=== PATIENT | male | born 1935 | race Caucasian/White ===

== ENCOUNTER → 2017-01-22 | Outpatient (CLI) | payer OTHER ==
[~2017-01-22] MED LIST: /WARF25TA OR; ASPI325T OR; IBUP600T OR; MACR100C43 PO; PERC5TAB8 OR
--- NOTE | 2017-01-22 12:22 | REP ---
Right lower extremity deep vein duplex ultrasound: There is nonocclusive thrombus in the popliteal vein extending into the distal femoral vein. No other thrombus is identified. The study is performed with deep vein compression, color flow Doppler assessment and Doppler waveforms at multiple levels. Impression: There is nonocclusive thrombus in the popliteal vein propagating into the distal femoral vein. Signed by Yair Herrera MD 01/22/2017 12:14 P
--- NOTE | 2017-01-22 13:18 | REP ---
CT chest without contrast: History: Shortness of breath. Edema. Comparison chest CT study March 23, 2015. CT findings: There is no evidence of pleural or pericardial effusion. The heart is mildly prominent. There is advanced coronary artery vascular calcification. No hilar or mediastinal mass is seen. The aorta is tortuous but otherwise unremarkable. There is a stable 3 mm nodule in the right lower lobe on image 63 of 120 series 201 unchanged from 2015. There are other smaller noncalcified pulmonary nodules in the left lower lobe and right upper lobe unchanged. No new lung mass or significant pulmonary nodule is seen. There is no evidence of diffuse interstitial edema. No bony destructive lesion is seen. Impression: Mild cardiac enlargement. Aortic tortuosity and vascular calcification. No evidence of pulmonary edema. Stable tiny pulmonary nodules. No acute disease. Signed by Thom Paz MD 01/22/2017 04:23 P
== END ==
LOC: M RAD 11:04
PROVIDERS: ATTEND Internal Medicine Cardiovascular Disease
DX: R60.0 Localized edema (principal); R05 Cough

== ENCOUNTER 2017-04-09 22:00 | Emergency (ER) | payer MEDICARE, OTHER, SELFPAY ==
[~2017-04-09] VITALS: Ht 167.6 cm; Wt 81.8 kg
[~2017-04-09 22:00] MED LIST changes: -MACR100C43 PO
[2017-04-09 22:48] VITALS: BP 108/62
[2017-04-09 23:31] LABS: YEAST LIKE CELL URINE AUTO SMALL
[2017-04-10] MEDS ORDERED: NITROFURANTOIN (MACROBID) 100 MG CAP PO ONE
[2017-04-10] MEDS ORDERED: MACR100C43 PO (00:01)
== END 2017-04-10 00:09 | disposition home or self-care (01) ==
LOC: M ED 22:00
DX: N40.1 Benign prostatic hyperplasia with lower urinary tract symptoms (principal); N39.0 Urinary tract infection, site not specified; R31.9 Hematuria, unspecified; Z79.01 Long term (current) use of anticoagulants; Z87.891 Personal history of nicotine dependence

== ENCOUNTER 2017-08-16 09:03 | Day surgery (SDC) | payer MEDICARE ==
[2017-08-16] MEDS: NS 1,000 ML IV ×2 (09:15→09:20)
[2017-08-16] MEDS ORDERED: PHENYLephrine HCL 500 MCG/5 ML (100MCG/ML) SYRINGE (J2370) As Ordered (09:53)
[2017-08-16] MEDS ORDERED: PROPOFOL 200 MG/20 ML VIAL As Ordered (09:54)
== END 2017-08-16 10:47 | disposition home or self-care (01) ==
LOC: M OPP 09:03
DX: R93.3 Abnormal findings on diagnostic imaging of other parts of digestive tract (principal); D12.0 Benign neoplasm of cecum; D12.3 Benign neoplasm of transverse colon; I25.10 Atherosclerotic heart disease of native coronary artery without angina pectoris; I10 Essential (primary) hypertension; E78.5 Hyperlipidemia, unspecified; C85.90 Non-Hodgkin lymphoma, unspecified, unspecified site; Z92.21 Personal history of antineoplastic chemotherapy; M19.90 Unspecified osteoarthritis, unspecified site; I63.9 Cerebral infarction, unspecified; N40.1 Benign prostatic hyperplasia with lower urinary tract symptoms; H54.62 Unqualified visual loss, left eye, normal vision right eye; Z95.5 Presence of coronary angioplasty implant and graft; Z96.652 Presence of left artificial knee joint; Z87.891 Personal history of nicotine dependence; Z79.899 Other long term (current) drug therapy; Z79.01 Long term (current) use of anticoagulants; Z88.8 Allergy status to other drugs, medicaments and biological substances; Z88.5 Allergy status to narcotic agent; Z80.0 Family history of malignant neoplasm of digestive organs
CPT/HCPCS: 45385

== ENCOUNTER → 2021-04-27 | Outpatient (CLI) | payer MEDICARE ==
[~2021-04-27] MED LIST changes: -/WARF25TA OR; +ATOR80TA59; +COUM1TAB18 OR; +ELIQ5TAB; +FINA5TAB2; +FURO40TA2; +FURO80TA2 PO; +MACR100C43 PO; +POTA20TA6; +SPIR-10 PO
== END ==
LOC: M LABSMTC 09:29
PROVIDERS: ATTEND Anesthesiology
DX: Z01.812 Encounter for preprocedural laboratory examination (principal); Z20.822 Contact with and (suspected) exposure to COVID-19

== ENCOUNTER 2021-05-02 11:09 | Day surgery (SDC) | payer MEDICARE ==
[~2021-05-02] VITALS: Ht 170.2 cm; Wt 80.8 kg
[~2021-05-02 11:09] MED LIST changes: +CYCLOPENTOLATE 1% OPHTH SOLN 2 ML BTL OD SCH; +DUOVISC (0.50ML VISCOAT/0.85ML PROVISC) OPHTH KIT As Ordered ONE; +FLURBIPROFEN 0.03% OPHTH SOLN 2.5 ML OD SCH; +LIDOCAINE 1% SDV 5ML VIAL As Ordered ONE; +LR 1,000 ML IV SCH; +MIDAZOLAM INJ 2MG/2ML VIAL (J2250 PER 1MG) As Ordered ONE; +PHENYLEPHRINE 2.5% OPHTH SOL 2ML OD SCH; +TETRACAINE 0.5% OPHTH SOLN 4ML OD SCH; +fentaNYL 100 MCG/2 ML INJECTION (J3010) As Ordered ONE
--- OUTSIDE RECORDS SUMMARY | 2021-05-02 11:13 | CCD | Continuity of Care Document ---
Author Author Wesley DIXON Organization Unknown Address [address] [place] [id number] Phone [phone] Care Team Providers Care Outreach Analyst Name Role Phone Vic Marin D.O. AUTM [phone] Vitaliy Simmons M.D. AUTM [phone] Ben Castillo MD AUTM [phone] Problems Active Problems Provider Date Segun hematuria Jean-Paul Simental MD Onset: 12/15/2015 Benign prostatic hyperplasia with outflow obstruction Jean-Paul Simental MD Onset: 12/15/2015 Neoplasm of uncertain behavior of prostate Jean-Paul Simental MD Onset: 12/15/2015 Inguinal lymphadenopathy Onset: 02/09/20 17 Abdominal aortic aneurysm Onset: 017 Arthritis Onset: 01/22/2017 Chronic congestive heart failure Onset: 01/22/2017 Multiple nodules of lung Onset: 01/23/20 17 Acute deep venous thrombosis of politeal vein of right leg Onset: 01/22/2017 Sensorineural hearing loss Onset: 2016 Blind left eye Onset: 01/22/2017 History of cerebrovascular accident Onse t: 05/09/2015 Recurrent coronary arteriosclerosis afte r percutaneous transluminal coronary angioplasty Onset: 08/20/2014 Nonsustained ventricular tachycardia Ons et: 08/19/2014 Paroxysmal atrial fibrillation Onset: Heart valve disorder Onset: Pulmonary hypertension Onset: Hyperlipidemia Onset: Benign prostatic hyperplasia Onset: 01/07 Heart valve disorder Onset: 01/22/2017 Hyperlipidemia Onset: 01/22/2017 Paroxysmal atrial fibrillation Onset: Pulmonary hypertension Onset: 01/22/2017 Low back pain Onset: 11/28/2018 Chronic nonalcoholic liver disease Onset : 10/01/2018 Anticoagulant agent Onset: 10/01/2018 Congestive heart failure Onset: 08/09/19 19 Disorder of external ear Onset: 09/18/19 18 Requires vaccination Onset: 04/13/2017 Nausea and vomiting Onset: 03/16/2017 Embolism from thrombosis of vein of distal lower extremity Onset: 01/30/2017 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 Onset: 01/24/2017 Social History Type Date Description Comments Sex Unknown Tobacco Use Start: Unknown End: Unknown Former Cigarette Smo ker quit >40 years ago Smoking Status Reviewed: 01/25/21 Former Cigarette Smoker quit >40 years ago ETOH Use Consumes 2 beers per day Allergies, Adverse Reactions, Alerts Active Allergies Reaction Severity Comments Date Morphine And Related Nausea Only 015 Morphine Nausea, Sensitivity 07/16/19 20 Other Itching 07/07/2019 Dabigatran Etexilate Mesylate Other (See Comments) 07/07/2019 Inactive Allergies NKDA 12/15/2015 Medications Active Medications SIG Qnty Indications Ordering Provide r Date Finasteride 5mg Tablets 1 by mouth every day 90tabs Svitlana Dixon MD 021 Eliquis 5mg Tablets Take 1 tablet (5 mg total) by mouth 2 (two) times a day 60tabs Svitlana Cortez MD 10/04/2017 Tylenol 8 Hour 650mg Tablets ER prn 1tabs Unknown 05/08/2017 Atorvastatin Calcium 80mg Tablets 1/2 by mouth every day Unknown Furosemide 80mg Tablets Take 80 mg by mouth daily Unknown Spironolactone 25mg Tablets Unknown Breo Ellipta 200-25mcg/Inh Aerosol Vic Marin D.O. Immunizations Description No Information Available Vital Signs Date Vital Result Comment 01/25/2021 1:28pm Height 68 inches 5'8" Weight 180.00 lb Weight 81.648 kg BMI (Body Mass Index) 27.4 kg/m2 BP Systolic 108 mmHg BP Diastolic 72 mmHg Heart Rate 68 /min Post Void Residual ml 147 Bladder Scanner, I ndication: frequency 01/20/2020 1:56pm Height 68 inches 5'8" Weight 186.00 lb Weight 84.370 kg BMI (Body Mass Index) 28.3 kg/m2 BP Systolic 127 mmHg BP Diastolic 77 mmHg Heart Rate 74 /min Post Void Residual ml 12 Bladder Scanner, I ndication: retention Results Test Acquired Date Facility Test Result H/L Range Note 230 Ua Routine 01/25/2021 [facility] REF TO DR ADDRESS ON ORDER FOR (315)- - Ua Glucose Negative Ua Protein Negative Ua Nitrite Negative Ua Leuko Negative Ua Blood Negative Ua Color Not Entered Ua Ketones Negative Ua Clarity Not Entered Ua Specific [place] 1.015 1.003-1.030 Ua PH 6.5 5.0-7.5 Ua Bilirubin Negative Ua Urobilinogen 0.2 E.U./dL 0.0-1.0 Laboratory test finding 01/21/[address] [id number] [phone] Prostate Specific Antigen 43.07 NG/ML High 0.06- 4.00 1 1 Do not interpret PSA results as absolute evidence of the presence or absence of Malignant Disease. The obtained PSA value should be used in conjunction with information available from clinical evaluation and other diagnostic procedures. Following post-radical prostatectomy, the guidelines for biochemical recurrence of prostate cancer is a detectable or rising PSA value that is greater than or equal to 0.2 ng/ml with a second confirmatory level of greater than or equal to 0.2 ng/ml. The result for the PSA is determined using the [employer] System that utilizes a direct chemiluminometric technology. The result is not interchangeble with different assay methods. Procedures Date Code Description Status 01/25/2021 16855 Office/Outpatient Established Mo d MDM 30-39 Min Completed 01/25/2021 55727 Bladder Scan, Post Voiding Resid ual Urine Completed Medical Devices Description No Information Available Encounters Type Date Location Provider Dx Diagnosis Office Visit 01/25/2021 1:20p [facility] Svitlana Stover MD R97.20 Elevated prostate specific a ntigen [PSA] N40.1 Benign prostatic hyperplasia with lower urinary tract symp R33.9 Retention of urine, unspecif ied Z87.440 Personal history of urinary (tract) infections Assessments Date Code Description Provider 01/25/2021 R97.20 Elevated prostate specific antig en [PSA] Svitlana Dixon MD 01/25/2021 N40.1 Benign prostatic hyperplasia wit h lower urinary tract sympto Svitlana Dixon MD 01/25/2021 R33.9 Retention of urine, unspecified Svitlana Dixon MD 01/25/2021 Z87.440 Personal history of urinary (tra ct) infections Svitlana Stover MD Plan of Treatment Future Appointment(s):* 01/31/2022 10:20 am - Svitlana Dixon MD at [facility] Functional Status Description No Information Available Mental Status Description No Information Available Referrals Description No Information Available
--- OUTSIDE RECORDS SUMMARY | 2021-05-02 11:13 | CCD | Clinical Summary ---
Author Author [employer] Organization 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 tach, mitral insufficienc y, pulmonary hypertension, abdominal aortic aneurysm, coronary disease post PTCA stent, history of stroke, history of DVT, history of A. fib on anticoagulation. History of CHF currently compensated. 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 ~ ~History of chronic A. fib anticoagulated previously on beta-holly therapy discontinued due to slow vent ricular response. ~ ~With his CVA he is previously been on statin therapy high i ntensity back and September. Sounds like by the way of what the family can recall t hat his statin was stopped at his last cardiac visit ~ ~Labs back in December minima l anemia 12.1/35.6. GFR greater than 60. ~ ~Upcoming cataract surgery he is act memo around the house and does get outside a bit to. No problems with exertional chest discomfort chest pain or palpitations. No reports of feeling lightheaded or dizzy no falls or syncope. No bleeding issues. No peripheral edema no orth opnea or paroxysmal nocturnal dyspnea. ~ ~EKG abnormal but consistent with prior . ~ ~Assessment and plan as documented below cleared for this very low risk surg ical procedure chronic medical problems with acceptable control, visit for: - Th e Chief Complaint is: Patient arrives to room with use of wheelchair, here toda y for pre op clearance. Patient is scheduled for cataract surgery on right eye o n 05/02/21 Problems Includes: Problems addressed during this encounter and other active Problems Current Visit Onset Date - Time Resolved Date - Time Provider C ondition Status Atrial Fibrillation 06/13/2016 - 12:00AM Vic godinez DO Active Note: on anticogaulants per [facility] Coronary Artery Disease 09/07/2014 - 12:00AM Jesus lopez Active Note: 02/05/17 - [facility] - pt. presented w/ near-syncope and SOB. Admitted for urgent cardiac catheterization indicating a high grad ostial left anterior descending stenosis. Dilated and stented with bare-metal stent. Stress test was marketdly abnormal but the subsequent cath showed no significant stenosis. Hyperlipidemia 05/25/2014 - 12:00AM Vic huang DO Active Past Visits Onset Date - Time Resolved Date - Time Provider Co ndition Status Amyloidosis 10/18/2020 - 11:20AM Yeny Ochoa, RN Act memo Large Intestine Neoplasm, Benign - Tubular Adenoma 07/16/2018 - 12:00AM Jesus Nurse Active Chronic Obstructive Pulmonary Disease 06/14/2018 - 12:00AM Vic Marin DO Active Localized edema 02/05/2017 - 12:00AM Jesus Nurse Act memo Note: 02/05/17 - [facility] - R t. leg, D/C on Lovenox, will attempt to convert to [place] Coronary angioplasty status 02/05/2017 - 12:00AM Yue to Nurse Active Note: 02/05/17 - Percutaneous intervention 08/20/14. Requires minimum of 30 days of dual antiplatelet therapy. 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 managed by [facility]. Arthritis 05/25/2014 - 12:00AM Vic Marin DO Active Benign Prostatic Hypertrophy 05/25/2014 - 12:00AM Don Marin DO Active Aneurysm of Abdominal Aorta Infrarenal 05/22/2014 - 12:00AM Vic Marin DO Active Note: Per hospital report , 3.5 cm Stroke Syndrome 05/22/2014 - 12:00AM Vic jiménez DO Active Note: Per hospital reports 1 07/15/2013 , started on statin Renal Cyst 05/22/2014 - 12:00AM Vic Marin DO Active Note: per hospital report 1 07/15/2013 Tachycardia Supraventricular 05/22/2014 - 12:00AM Don Marin DO Active Note: Per hospital report , longest 13 seconds in duration Ventricular Tachycardia 05/22/2014 - 12:00AM Vic Marin DO Active Note: Per hospital reports 1 07/2013. Beta holly started. Plan of Treatment Future Appointments Date Time Location Provider [facility] 05/13/2021 11:00AM [facility] Vic leary DO Future Tests Order Diagnosis Results Due Ordering Provid er Records Ophthalmology Cortical age-related cataract, unspecifi ed eye 04/26/21 Vic Marin DO In House Procedures - EKG EKG with Interpretation & Report A thscl heart disease of [place] coronary artery w/o ang pctrs 04/26/21 Vic valerio DO Visit Summary - Standard Visit Visit Summary Standard Visi t Cortical age- related cataract, unspecified eye 04/26/21 Vic Marin DO In House Meds - Immunizations Please give immunizations toda y per Immun. tab Cortical age-related cataract, unspecified eye 04/26/21 Vic Marin DO - Instructions for patient - Return to the clinic if condition wors ens or new symptoms arise - Follow-up visit Assessments Includes: Assessments from this encounter - Cataract Cleared for this low risk surgical procedure. Chronic medical problems with acceptable control - Atrial fibrillation - Coronary artery disease - Hyperlipidemia See updated problem list for history/discussion/assessment and plan for today's problems. See also health tab and appropriate flow sheets. Instructions Includes: Instructions from this encounter Instructions to patient Instructions for patient Education and Decision Aids were provide d during visit for: Patient appeared to understand therapeut ic regimen Medical Equipment - Implanted Devices Includes: Current DevicesNo Medical Equipment Recorded Medications Includes: Medications discussed during this encounter and other current Medicati ons Discontinued / Stopped on this date on 01/15/2020 Atorvastatin Calcium 40 MG Oral Tablet P rovider: Diagnosis: Dutasteride 0.5 MG Oral Capsule Provider : Diagnosis: Current Medications (continue as prescribed) Finasteride 5 MG Oral Tablet 04/25/2021 Provider: Diagnosis: Furosemide 80 MG Oral Tablet 10/07/2020 Provider: Diagnosis: dose increasedcardio Eliquis 5 MG Oral Tablet 01/15/2020 Provider: Diagnosis: Cardio Spironolactone 25 MG Oral Tablet 12/25/2019 Provide r: Diagnosis: Medications Administered Includes: Administered Medications from this encounterNo Administered Medications Recorded Vital Signs Includes: Vital Signs from this encounter Vital Name 04/26/2021 06:01P Blood Pressure Sitting L 112/72 BP Cuff Size Regular Pulse Rate-Sitting (bpm) 89 Pulse Rhythm Regular Respiration Rate (breaths/min) 20 Temp-Tympanic (F) 97.7 Pain Level 0 Oxygen Saturation (%) 97 Flow Rate (l/min) (None (Room Air)) FiO2 (%) 21 Results Includes: Results discussed during this encounterNo Results Recorded For Specified Dates History of Present Illness Includes: History of Present Illness from this encounter Wesley Newby is an 85 year old male. - Allergy list reviewed - Problem list reviewed - Medication reconciliation performed - Medication list reviewed with patient and updated in EMR - - No request for consultation by special ist no previous emergency room visit Social History Description Last Updated Smoking status 04/26/2021 : Former smoker 04/26/2021 Educational level 01/15/2020 Not using drugs 07/17/2019 01/15/2020 Secondhand cigarette smoke exposure 01/15/2020 Procedures and Surgical History Includes: Procedures from this encounter Procedures Code Diagnosis Performing Provider Service Location Service Date continue current medication except where otherwise no laura Transition in care medication list update medical regimen review Clinical summary provided to patient Clinical summary provided to patient Summary provided electronically in CCDA format & reasonable certainty of receipt Surgical History Last Updated History of cardiovascular surgery Cardiac catheteriza tion 08/20/14, stented 01/15/2020 Medical History Includes: Medical History addressed during this encounter Description Last Updated Orthopedic surgery 2008- right femur co mpound fx repair- steel plate ~2009 right femur repair ~left knee replacement 200901/15/2020 Patient screening 12/08/2014 Offered for HIV REFUSED 0 12/08/2014 An ECG was performed 05/10/2014 05/22/[address] scan of the head was performed 05/10/2014 014 An echocardiogram was performed 05/11/2014 05/11/2014 05/22/2014 An abdominal ultrasound was performed 05/12/201405/22 An MRI of the head was performed 05/11/2014 05/22/2014 An MRI was performed 05/11/2014 05/22/2014 Family History Includes: Family History addressed during this encounter Description Last Updated Mother, Father, and brother- stroke 01/15/2020 Family history of cancer Paternal uncle- lung cancer 01/15/2020 Family history of depression Brother 01/15/2020 Family history of not using drugs 01/15/2020 Maternal history of not using drugs 01/15/2020 No maternal history of depression 01/15/2020 No paternal history of depression 01/15/2020 Paternal history of not using drugs 01/15/2020 Review of Systems Includes: Review of Systems from this encounterNo Review of Systems Recorded Mental Status Includes: Mental Status from this encounter Description Oriented to time, place, and person Functional Status Includes: Functional Status from this encounterNo Functional Status Recorded Physical Exam Includes: Physical Exam from this encounter Skin: -the skin color and pigmentation were normal -the skin general appearance was normal Eyes: -the conjunctiva exhibited no abnormalities -the extraocular movements were normal Ears, Nose, Throat: -no external nose deformities -no nasal discharge seen -the oropharynx was normal Neck: -the neck demonstrated no decrease in suppleness -the thyroid showed no abnormalities -no cervical mass was seen -No carotid bruits Lymph Nodes: -the supraclavicular lymph nodes were not enlarged -no adenopathy Lungs: -normal breath sounds/voice sounds -no wheezing was heard -no rhonchi were heard -no rales/crackles were heard Cardiovascular System: -no murmurs were heard -no pitting edema -heart rate and rhythm normal -no bradycardia present -no tachycardia present Abdomen: -abdominal non-tender Psychiatric Exam: -the affect was normal Head: -no evidence of a head injury -the head was normocephalic Neurological System: -oriented to time, place, and person General Status: -in no acute distress -well developed -well nourished Musculoskeletal System: -overall findings were normal Vital Signs: -current vital signs reviewed Immunizations Includes: Immunizations addressed during this encounter Vaccine Dose # Date Site Reaction(s) Status Source Influenza, high-dose (over 65) 3 04/26/2021 Activ e (Ordered) [facility] Allergies Includes: Active Allergies Substance Type Reaction Onset Date - Time Resolved Date - Ti me Status Pradaxa Allergy Heartburn 09/07/2014 - 12:00AM Acti ve Morphine/D5W Intolerance Nausea, Vomiting, Diarrhea, Head ache 09/07/2014 - 12:00AM Active Encounters Encounter Provider Location Date Check-In Time Check-Out Time D iagnosis Medical Clearance Vic Marin [facility] 04/26/2021 5 :37PM 11:59PM Cataract, Atrial Fibrillation, Coronary Artery Disease, Hyperlipidemia Insurance Includes: Active Insurance Policies Plan Name Member ID Group # Subscriber Relationship Effective Da paul 1 - s Medicare [id number] Wesley Casper Ronaldnelly Self 07/09/1999 - Unknown 2 - [facility] Care Options [id number] Wesley Cardenasnelly [place] 04/08/2017 - Unknown Advance Directives Includes: Current Advance Directives Directive Pat Aware Third Green Party Effective Date Reviewed Status Ebola Screening Performed Yes 08/20/2020 Current and Verified Note: Within the last month, have you traveled outside of the [place]? - NO packet given Pt Bill of Rights, Priv Prac, Ad Dir Yes 12/30/2020 Current and Verified Note: Pt declined AD packet COVID Screening Performed Yes 04/26/2021 Current and Verified Health Concerns Includes: Health Concerns for current assessments Hyperlipidemia Onset 05/25/2014 Goals Includes: Active Goals for current assessments Goal for Hyperlipidemia Added 05/25/2014 by Provider Health Concern: Hyperlipidemia Interventions Includes: Interventions for current assessments Cholesterol guidelines reviewed. Benefi josh statin therapy discussed. Please call if you are feeling significant muscle pain while taking your cholesterol medicine. We want to repeat blood work in about 2-3 months. Added 05/25/2014 Goal: Goal for Hyperlipidemia Evaluations & Outcomes Includes: Evaluations & Outcomes for current assessments Goal converted from Patient Problem data . Goal is currently In Progress. Added 05/25/2014 - In Progress Goal: Goal for Hyperlipidemia
--- OUTSIDE RECORDS SUMMARY | 2021-05-02 11:14 | CCD ---
Author Author [facility] Organization [facility] Address Unknown Phone Unavailable Care Team Providers Care Continuous Crusher Operator Name Role Phone Ben Castillo MD Unavailable Unavailable Ben Castillo MD Unavailable Unavailable Ben Castillo MD Unavailable Unavailable Ben Castillo MD Unavailable Unavailable Ben Castillo MD Unavailable Unavailable Ben Castillo MD Unavailable Unavailable Ben Castillo MD Unavailable Unavailable Ben Castillo MD Unavailable Unavailable Ben Castillo MD Unavailable Unavailable Ben Castillo MD Unavailable Unavailable Ben Castillo MD Unavailable Unavailable Ben Castillo MD Unavailable Unavailable Ben Castillo MD Unavailable Unavailable Ben Castillo MD Unavailable Unavailable Ben Castillo MD Unavailable Unavailable Ben Castillo MD Unavailable Unavailable Ben Castillo MD Unavailable Unavailable Ben Castillo MD Unavailable Unavailable Ben Castillo MD Unavailable Unavailable Ben Castillo MD Unavailable Unavailable Ben Castillo MD Unavailable Unavailable Ben Castillo MD Unavailable Unavailable Ben Castillo MD Unavailable Unavailable Ben Castillo MD Unavailable Unavailable Ben Castillo MD Unavailable Unavailable Ben Castillo MD Unavailable Unavailable Ben Castillo MD Unavailable Unavailable Ben Castillo MD Unavailable Unavailable Ben Castillo MD Unavailable Unavailable Ben Castillo MD Unavailable Unavailable Ben Castillo MD Unavailable Unavailable Ben Castillo MD Unavailable Unavailable Ben Castillo MD Unavailable Unavailable Ben Castillo MD Unavailable Unavailable Ben Castillo MD Unavailable Unavailable Ben Castillo MD Unavailable Unavailable Ben Castillo MD Unavailable Unavailable Ben Castillo MD Unavailable Unavailable Ben Castillo MD Unavailable Unavailable Ben Castillo MD Unavailable Unavailable Ben Castillo MD Unavailable Unavailable Ben Castillo MD Unavailable Unavailable Ben Castillo MD Unavailable Unavailable Ben Castillo MD Unavailable Unavailable Ben Castillo MD Unavailable Unavailable Ben Castillo MD Unavailable Unavailable Ben Castillo MD Unavailable Unavailable Ben Castillo MD Unavailable Unavailable Ben Castillo MD Unavailable Unavailable Ben Castillo MD Unavailable Unavailable Ben Castillo MD Unavailable Unavailable Ben Castillo MD Unavailable Unavailable Ben Castillo MD Unavailable Unavailable Ben Castillo MD Unavailable Unavailable Ben Castillo MD Unavailable Unavailable Ben Castillo MD Unavailable Unavailable Ben Castillo MD Unavailable Unavailable Ben Castillo MD Unavailable Unavailable Ben Castillo MD Unavailable Unavailable Ben Castillo MD Unavailable Unavailable Ben Castillo MD Unavailable Unavailable FULEIHAN, Selena BOLIVAR MD Unavailable Unavailable FULEIHAN, Selena BOLIVAR MD Unavailable Unavailable FULEIHAN, Selena BOLIVAR MD Unavailable Unavailable FULEIHAN, Selena BOLIVAR MD Unavailable Unavailable FULEIHAN, Selena BOLIVAR MD Unavailable Unavailable FULEIHAN, Selena BOLIVAR MD Unavailable Unavailable FULEIHAN, Selena BOLIVAR MD Unavailable Unavailable FULEIHAN, Selena BOLIVAR MD Unavailable Unavailable FULEIHAN, Selena BOLIVAR MD Unavailable Unavailable FULEIHAN, Selena BOLIVAR MD Unavailable Unavailable FULEIHAN, Selena BOLIVAR MD Unavailable Unavailable FULEIHAN, Selena BOLIVAR MD Unavailable Unavailable FULEIHAN, Selena BOLIVAR MD Unavailable Unavailable FULEIHAN, Selena BOLIVAR MD Unavailable Unavailable FULEIHAN, Selena BOLIVAR MD Unavailable Unavailable FULEIHAN, Selena BOLIVAR MD Unavailable Unavailable FULEIHAN, Selena BOLIVAR MD Unavailable Unavailable FULEIHAN, Selena BOLIVAR MD Unavailable Unavailable FULEIHAN, Selena BOLIVAR MD Unavailable Unavailable FULEIHAN, Selena BOLIVAR MD Unavailable Unavailable FULEIHAN, Selena BOLIVAR MD Unavailable Unavailable FULEIHAN, Selena BOLIVAR MD Unavailable Unavailable FULEIHAN, Selena BOLIVAR MD Unavailable Unavailable FULEIHAN, Selena BOLIVAR MD Unavailable Unavailable FULEIHAN, Selena BOLIVAR MD Unavailable Unavailable FULEIHAN, Selena BOLIVAR MD Unavailable Unavailable FULEIHAN, Selena BOLIVAR MD Unavailable Unavailable FULEIHAN, Selena BOLIVAR MD Unavailable Unavailable FULEIHAN, Selena BOLIVAR MD Unavailable Unavailable FULEIHAN, Selena BOLIVAR MD Unavailable Unavailable FULEIHAN, Selena BOLIVAR MD Unavailable Unavailable FULEIHAN, Selena BOLIVAR MD Unavailable Unavailable FULEIHAN, Selena BOLIVAR MD Unavailable Unavailable FULEIHAN, Selena BOLIVAR MD Unavailable Unavailable FULEIHAN, Selena BOLIVAR MD Unavailable Unavailable FULEIHAN, Selena BOLIVAR MD Unavailable Unavailable FULEIHAN, Selena BOLIVAR MD Unavailable Unavailable FULEIHAN, Selena BOLIVAR MD Unavailable Unavailable FULEIHAN, Selena BOLIVAR MD Unavailable Unavailable FULEIHAN, Selena BOLIVAR MD Unavailable Unavailable FULEIHAN, Selena BOLIVAR MD Unavailable Unavailable FULEIHAN, Selena BOLIVAR MD Unavailable Unavailable FULEIHAN, Selena BOLIVAR MD Unavailable Unavailable FULEIHAN, Selena BOLIVAR MD Unavailable Unavailable FULEIHAN, Selena BOLIVAR MD Unavailable Unavailable FULEIHAN, Selena BOLIVAR MD Unavailable Unavailable FULEIHAN, Selena BOLIVAR MD Unavailable Unavailable FULEIHAN, Selena BOLIVAR MD Unavailable Unavailable FULEIHAN, Selena BOLIVAR MD Unavailable Unavailable FULEIHAN, Selena BOLIVAR MD Unavailable Unavailable FULEIHAN, Selena BOLIVAR MD Unavailable Unavailable FULEIHAN, Selena BOLIVAR MD Unavailable Unavailable FULEIHAN, Selena BOLIVAR MD Unavailable Unavailable FULEIHAN, Selena BOLIVAR MD Unavailable Unavailable FULEIHAN, Selena BOLIVAR MD Unavailable Unavailable FULEIHAN, Selena BOLIVAR MD Unavailable Unavailable FULEIHAN, Selena BOLIVAR MD Unavailable Unavailable FULEIHAN, Selena BOLIVAR MD Unavailable Unavailable FULEIHAN, Selena BOLIVAR MD Unavailable Unavailable FULEIHAN, Selena BOLIVAR MD Unavailable Unavailable FULEIHAN, Selena BOLIVAR MD Unavailable Unavailable FULEIHAN, Selean BOLIVAR MD Unavailable Unavailable FULEIHAN, Selena BOLIVAR MD Unavailable Unavailable FULEIHAN, Selena BOLIVAR MD Unavailable Unavailable FULEIHAN, Selena BOLIVAR MD Unavailable Unavailable FULEIHAN, Selena BOLIVAR MD Unavailable Unavailable FULEIHAN, Selena BOLIVAR MD Unavailable Unavailable FULEIHAN, Selena BOLIVAR MD Unavailable Unavailable FULEIHAN, Selena BOLIVAR MD Unavailable Unavailable FULEIHAN, Selena BOLIVAR MD Unavailable Unavailable FULEIHAN, Selena BOLIVAR MD Unavailable Unavailable FULEIHAN, Selena BOLIVAR MD Unavailable Unavailable FULEIHAN, Selena BOLIVAR MD Unavailable Unavailable FULEIHAN, Selena BOLIVAR MD Unavailable Unavailable FULEIHAN, Selena BOLIVAR MD Unavailable Unavailable FULEIHAN, Selena BOLIVAR MD Unavailable Unavailable FULEIHAN, Selena BOLIVAR MD Unavailable Unavailable FULEIHAN, Selena BOLIVAR MD Unavailable Unavailable FULEIHAN, Selena BOLIVAR MD Unavailable Unavailable FULEIHAN, Selena BOILVAR MD Unavailable Unavailable FULEIHAN, Selena BOLIVAR MD Unavailable Unavailable FULEIHAN, Selena BOLIVAR MD Unavailable Unavailable FULEIHAN, Selena BOLIVAR MD Unavailable Unavailable KRISTEN, Selena BOLIVAR MD Unavailable Unavailable KRISTEN, Selena BOLIVAR MD Unavailable Unavailable KRISTEN, Selena BOLIVAR MD Unavailable Unavailable KRISTEN, Selena BOLIVAR MD Unavailable Unavailable KRISTEN, Selena BOLIVAR MD Unavailable Unavailable KRISTEN, Selena BOLIVAR MD Unavailable Unavailable BRY Salazar, Antoinette Unavailable CarguelloGermain Aster DO Unavailable Unavailable Carguello J Aster DO Unavailable Unavailable Carguello J Aster DO Unavailable Unavailable Carguello J Aster DO Unavailable Unavailable Carguello J Aster DO Unavailable Unavailable Carguello J Aster DO Unavailable Unavailable Carguello J Aster DO Unavailable Unavailable Carguello J Aster DO Unavailable Unavailable Carguello J Aster DO Unavailable Unavailable Carguello J Aster DO Unavailable Unavailable Carguello J Aster DO Unavailable Unavailable Carguello, J Aster DO Unavailable Unavailable Carguello J Aster DO Unavailable Unavailable Carguello J Aster DO Unavailable Unavailable Carguello J Aster DO Unavailable Unavailable Carguello J Aster DO Unavailable Unavailable Carguello J Aster DO Unavailable Unavailable Carguello J Aster DO Unavailable Unavailable Carguello J Aster DO Unavailable Unavailable Carguello J Aster DO Unavailable Unavailable Carguello J Aster DO Unavailable Unavailable Carguello J Aster DO Unavailable Unavailable Carguello J Aster DO Unavailable Unavailable Carguello J Aster DO Unavailable Unavailable Carguello, J Aster DO Unavailable Unavailable Carguello J Aster DO Unavailable Unavailable Carguello J Aster DO Unavailable Unavailable Carguello J Aster DO Unavailable Unavailable Carguello J Aster DO Unavailable Unavailable Carguello J Aster DO Unavailable Unavailable Carguello J Aster DO Unavailable Unavailable Carguello J Aster DO Unavailable Unavailable Carguello J Aster DO Unavailable Unavailable Carguello J Aster DO Unavailable Unavailable Carguello J Aster DO Unavailable Unavailable Carguello J Aster DO Unavailable Unavailable Carguello J Aster DO Unavailable Unavailable Carguello J Aster DO Unavailable Unavailable Carguello J Aster DO Unavailable Unavailable Carguello J Aster DO Unavailable Unavailable Carguello J Aster DO Unavailable Unavailable Carguello, J Aster DO Unavailable Unavailable Carguello J Aster DO Unavailable Unavailable Carguello, J Aster DO Unavailable Unavailable Carguello J Aster DO Unavailable Unavailable Carguello J Aster DO Unavailable Unavailable Carguello J Aster DO Unavailable Unavailable Carguello, J Aster DO Unavailable Unavailable Carguello, J Aster DO Unavailable Unavailable Carguello, J Aster DO Unavailable Unavailable Carguello, J Sater DO Unavailable Unavailable Carguello, J Aster DO Unavailable Unavailable Carguello, J Aster DO Unavailable Unavailable Carguello, J Aster DO Unavailable Unavailable Carguello, J Aster DO Unavailable Unavailable Carguello, J Aster DO Unavailable Unavailable Carguello, J Aster DO Unavailable Unavailable Carguello, J Aster DO Unavailable Unavailable Carguello, J Aster DO Unavailable Unavailable Carguello, J Aster DO Unavailable Unavailable Carguello, J Aster DO Unavailable Unavailable Carguello, J Aster DO Unavailable Unavailable Carguello, J Aster DO Unavailable Unavailable Carguello, J Aster DO Unavailable Unavailable Carguello, J Aster DO Unavailable Unavailable Carguello J Aster DO Unavailable Unavailable Carguello J Aster DO Unavailable Unavailable Carguello J Aster DO Unavailable Unavailable Carguello, J Aster DO Unavailable Unavailable Carguello, J Aster DO Unavailable Unavailable Carguello, J Aster DO Unavailable Unavailable Carguello, J Aster DO Unavailable Unavailable Carguello J Aster DO Unavailable Unavailable Carguello, J Aster DO Unavailable Unavailable Carguello, J Aster DO Unavailable Unavailable Carguello, J Aster DO Unavailable Unavailable Carguello J Aster DO Unavailable Unavailable Carguello J Aster DO Unavailable Unavailable Carguello J Aster DO Unavailable Unavailable Carguello J Aster DO Unavailable Unavailable Carguello, J Aster DO Unavailable Unavailable Carguello, J Aster DO Unavailable Unavailable Carguello J Aster DO Unavailable Unavailable Carguello J Aster DO Unavailable Unavailable Carguello J Aster DO Unavailable Unavailable Carguello J Aster DO Unavailable Unavailable Carguello, J Aster DO Unavailable Unavailable Carguello, J Aster DO Unavailable Unavailable Carguello J Aster DO Unavailable Unavailable Carguello J Aster DO Unavailable Unavailable Carguello J Aster DO Unavailable Unavailable Carguello, J Aster DO Unavailable Unavailable Carguello J Aster DO Unavailable Unavailable Carguello, J Aster DO Unavailable Unavailable Carguello J Aster DO Unavailable Unavailable Carguello J Aster DO Unavailable Unavailable Carguello J Aster DO Unavailable Unavailable Carguello, J Aster DO Unavailable Unavailable Carguello, J Aster DO Unavailable Unavailable Carguello, J Aster DO Unavailable Unavailable Carguello, J Aster DO Unavailable Unavailable Carguello, J Aster DO Unavailable Unavailable Carguello, J Aster DO Unavailable Unavailable Carguello, J Aster DO Unavailable Unavailable Carguello, J Aster DO Unavailable Unavailable Carguello, J Aster DO Unavailable Unavailable Carguello, J Aster DO Unavailable Unavailable Carguello, J Aster DO Unavailable Unavailable Carguello, J Aster DO Unavailable Unavailable Carguello, J Aster DO Unavailable Unavailable Carguello, J Aster DO Unavailable Unavailable Carguello, J Aster DO Unavailable Unavailable Carguello, J Aster DO Unavailable Unavailable Carguello, J Aster DO Unavailable Unavailable Carguello, J Aster DO Unavailable Unavailable Carguello J Aster DO Unavailable Unavailable Carguello J Aster DO Unavailable Unavailable Carguello J Aster DO Unavailable Unavailable Carguello, J Aster DO Unavailable Unavailable Carguello, J Aster DO Unavailable Unavailable Carguello, J Aster DO Unavailable Unavailable Carguello, J Aster DO Unavailable Unavailable Carguello J Aster DO Unavailable Unavailable Carguello, J Aster DO Unavailable Unavailable Carguello, J Aster DO Unavailable Unavailable Carguello, J Aster DO Unavailable Unavailable Carguello J Aster DO Unavailable Unavailable Carguello J Aster DO Unavailable Unavailable Carguello J Aster DO Unavailable Unavailable Carguello J Aster DO Unavailable Unavailable Carguello, J Aster DO Unavailable Unavailable Carguello, J Aster DO Unavailable Unavailable Carguello J Aster DO Unavailable Unavailable Carguello J Aster DO Unavailable Unavailable Carguello J Aster DO Unavailable Unavailable Carguello J Aster DO Unavailable Unavailable Carguello, J Aster DO Unavailable Unavailable Carguello, J Aster DO Unavailable Unavailable Carguello J Aster DO Unavailable Unavailable Carguello J Aster DO Unavailable Unavailable Carguello J Aster DO Unavailable Unavailable Carguello, J Aster DO Unavailable Unavailable Carguello, J Aster DO Unavailable Unavailable Carguello, J Aster DO Unavailable Unavailable Carguello, J Aster DO Unavailable Unavailable Carguello, J Aster DO Unavailable Unavailable Carguello, J Aster DO Unavailable Unavailable Carguello, J Aster DO Unavailable Unavailable Carguello, J Aster DO Unavailable Unavailable Carguello, J Aster DO Unavailable Unavailable Carguello, J Aster DO Unavailable Unavailable Carguello, J Aster DO Unavailable Unavailable Carguello, J Aster DO Unavailable Unavailable Carguello, J Aster DO Unavailable Unavailable Carguello, J Aster DO Unavailable Unavailable Carguello, J Aster DO Unavailable Unavailable Carguello, J Aster DO Unavailable Unavailable Carguello, J Aster DO Unavailable Unavailable Carguello, J Aster DO Unavailable Unavailable Carguello, J Aster DO Unavailable Unavailable Carguello, J Aster DO Unavailable Unavailable Carguello, J Aster DO Unavailable Unavailable Carguello, J Aster DO Unavailable Unavailable Carguello, J Aster DO Unavailable Unavailable Carguello, J Aster DO Unavailable Unavailable Carguello, J Aster DO Unavailable Unavailable Carguello, J Aster DO Unavailable Unavailable Carguello, J Aster DO Unavailable Unavailable Carguello, J Aster DO Unavailable Unavailable Carguello, J Aster DO Unavailable Unavailable Carguello, J Aster DO Unavailable Unavailable Carguello, J Aster DO Unavailable Unavailable Carguello, J Aster DO Unavailable Unavailable Carguello, J Aster DO Unavailable Unavailable Carguello, J Aster DO Unavailable Unavailable Carguello, J Aster DO Unavailable Unavailable Selena PETERSON MD Unavailable Unavailable Selena PETERSON MD Unavailable Unavailable FULTRI, Selena BOLIVAR MD Unavailable Unavailable Selena PETERSON MD Unavailable Unavailable Selena PETERSON MD Unavailable Unavailable Selena PETERSON MD Unavailable Unavailable Selena PETERSON MD Unavailable Unavailable FULTRI, Selena BOLIVAR MD Unavailable Unavailable Selena PETERSON MD Unavailable Unavailable KRISTEN, Selena BOLIVAR MD Unavailable Unavailable Selena PETERSON MD Unavailable Unavailable Selena PETERSON MD Unavailable Unavailable Selena PETERSON MD Unavailable Unavailable Selena PETERSON MD Unavailable Unavailable FULTRI, Selena BOLIVAR MD Unavailable Unavailable FULTRI, Selena BOLIVAR MD Unavailable Unavailable FULEIHAN, Selena BOLIVAR MD Unavailable Unavailable FULEIHAN, Selena BOLIVAR MD Unavailable Unavailable FULEIHAN, Selena BOLIVAR MD Unavailable Unavailable FULEIHAN, Selena BOLIVAR MD Unavailable Unavailable FULEIHAN, Selena BOLIVAR MD Unavailable Unavailable FULEIHAN, Selena BOLIVAR MD Unavailable Unavailable FULEIHAN, Selena BOLIVAR MD Unavailable Unavailable FULEIHAN, Selena BOLIVAR MD Unavailable Unavailable FULEIHAN, Selena BOLIVAR MD Unavailable Unavailable FULEIHAN, Selena BOLIVAR MD Unavailable Unavailable FULEIHAN, Selena BOLIVAR MD Unavailable Unavailable FULEIHAN, Selena BOLIVAR MD Unavailable Unavailable FULEIHAN, Selena BOLIVAR MD Unavailable Unavailable FULEIHAN, Selena BOLIVAR MD Unavailable Unavailable FULEIHAN, Selena BOLIVAR MD Unavailable Unavailable FULEIHAN, Selena BOLIVAR MD Unavailable Unavailable FULEIHAN, Selena BOLIVAR MD Unavailable Unavailable FULEIHAN, Selena BOLIVAR MD Unavailable Unavailable FULEIHAN, Selena BOLIVAR MD Unavailable Unavailable FULEIHAN, Selena BOLIVAR MD Unavailable Unavailable FULEIHAN, Selena BOLIVAR MD Unavailable Unavailable FULEIHAN, Selena BOLIVAR MD Unavailable Unavailable FULEIHAN, Selena BOLIVAR MD Unavailable Unavailable FULEIHAN, Selena BOLIVAR MD Unavailable Unavailable FULEIHAN, Selena BOLIVAR MD Unavailable Unavailable FULEIHAN, Selena BOLIVAR MD Unavailable Unavailable FULEIHAN, Selena BOLIVAR MD Unavailable Unavailable FULEIHAN, Selena BOLIVAR MD Unavailable Unavailable FULEIHAN, Selena BOLIVAR MD Unavailable Unavailable FULEIHAN, Selena BOLIVAR MD Unavailable Unavailable FULEIHAN, Selena BOLIVAR MD Unavailable Unavailable FULEIHAN, Selena BOLIVAR MD Unavailable Unavailable FULEIHAN, Selena BOLIVAR MD Unavailable Unavailable FULEIHAN, eSlena BOLIVAR MD Unavailable Unavailable FULEIHAN, Selena BOLIVAR MD Unavailable Unavailable FULEIHAN, Selena BOLIVAR MD Unavailable Unavailable FULEIHAN, Selena BOLIVAR MD Unavailable Unavailable FULEIHAN, Selena BOLIVAR MD Unavailable Unavailable FULEIHAN, Selena BOLIVAR MD Unavailable Unavailable FULEIHAN, Selena BOLIVAR MD Unavailable Unavailable FULEIHAN, Selena BOLIVAR MD Unavailable Unavailable FULEIHAN, Selena BOLIVAR MD Unavailable Unavailable FULEIHAN, Selena BOLIVAR MD Unavailable Unavailable FULEIHAN, Selena BOLIVAR MD Unavailable Unavailable FULEIHAN, Selena BOLIVAR MD Unavailable Unavailable FULEIHAN, Selena BOLIVAR MD Unavailable Unavailable FULEIHAN, Selena BOLIVAR MD Unavailable Unavailable FULEIHAN, Selena BOLIVAR MD Unavailable Unavailable FULEIHAN, Selena BOLIVAR MD Unavailable Unavailable FULEIHAN, Selena BOLIVAR MD Unavailable Unavailable FULEIARMANI, Selena BOLIVAR MD Unavailable Unavailable FULEIHAN, Selena BOLIVAR MD Unavailable Unavailable FULEIHAN, Selena BOLIVAR MD Unavailable Unavailable FULEIHAN, Selena BOLIVAR MD Unavailable Unavailable FULEIHAN, Selena BOLIVAR MD Unavailable Unavailable FULEIHAN, Selena BOLIVAR MD Unavailable Unavailable FULEIARMANI, Selena BOLIVAR MD Unavailable Unavailable FULEIARMANI, Selena BOLIVAR MD Unavailable Unavailable FULEIHAN, Selena BOLIVAR MD Unavailable Unavailable FULEIHAN, Selena BOLIVAR MD Unavailable Unavailable FULEIHAN, Selena BOLIVAR MD Unavailable Unavailable FULEIHAN, Selena BOLIVAR MD Unavailable Unavailable FULEIHAN, Selena BOLIVAR MD Unavailable Unavailable FULEIHAN, Selena BOLIVAR MD Unavailable Unavailable FULEIHAN, Selena BOLIVAR MD Unavailable Unavailable FULEIHAN, Selena BOLIVAR MD Unavailable Unavailable FULEIHAN, Selena BOLIVAR MD Unavailable Unavailable FULEIHAN, Selena BOLIVAR MD Unavailable Unavailable FULEIARMANI, Selena BOLIVAR MD Unavailable Unavailable FULTRI, Selena BOLIVAR MD Unavailable Unavailable FULEIARMANI, Selena BOLIVAR MD Unavailable Unavailable FULEIARMANI, Selena BOLIVAR MD Unavailable Unavailable FULEIARMANI, Selena BOLIVAR MD Unavailable Unavailable Jim, C Ambrose MANAGER CHINESE Unavailable Unavailable Jim, C Ambrose MANAGER CHINESE Unavailable Unavailable Jim, C Ambrose MANAGER CHINESE Unavailable Unavailable Jim, C Ambrose MANAGER CHINESE Unavailable Unavailable Jim, C Ambrose MANAGER CHINESE Unavailable Unavailable Jim, C Ambrose MANAGER CHINESE Unavailable Unavailable Jim, C Ambrose MANAGER CHINESE Unavailable Unavailable Jim, C Ambrose MANAGER CHINESE Unavailable Unavailable Jim, C Ambrose MANAGER CHINESE Unavailable Unavailable Jim, C Ambrose MANAGER CHINESE Unavailable Unavailable Jim, C Ambrose MANAGER CHINESE Unavailable Unavailable Jim, C Ambrose MANAGER CHINESE Unavailable Unavailable Jim, C Ambrose MANAGER CHINESE Unavailable Unavailable Jim, C Ambrose MANAGER CHINESE Unavailable Unavailable Jim, C Ambrose MANAGER CHINESE Unavailable Unavailable Jim, C Ambrose MANAGER CHINESE Unavailable Unavailable HENLEY DO, P CHRISTOPHER Unavailable Unavailable Svitlana Sher MD Unavailable Unavailable Svitlana Sher MD Unavailable Unavailable Svitlana Sher MD Unavailable Unavailable Svitlana Sher MD Unavailable Unavailable Svitlana Sher MD Unavailable Unavailable Svitlana Sher MD Unavailable Unavailable Svitlana Sher MD Unavailable Unavailable Svitlana Sher MD Unavailable Unavailable Svitlana Sher MD Unavailable Unavailable Svitlana Sher MD Unavailable Unavailable Svitlana Sher MD Unavailable Unavailable Janine Stover, Svitlana BISWAS Unavailable Unavailable Janine Stover, Svitlana BISWAS Unavailable Unavailable Janine Stover, Svitlana BISWAS Unavailable Unavailable Janine Stover, Svitlana BISWAS Unavailable Unavailable Janine Stover, Svitlana BISWAS Unavailable Unavailable Janine Stover, Svitlana BISWAS Unavailable Unavailable Janine Stover, Svitlana BISWAS Unavailable Unavailable Janine Stover, Svitlana BISWAS Unavailable Unavailable Janine Stover, Svitlana BISWAS Unavailable Unavailable Janine Stover, Svitlana MD Unavailable Unavailable Janine Stover, Svitlana MD Unavailable Unavailable Janine Stover, Svitlana BISWAS Unavailable Unavailable Janine Stover, Svitlana BISWAS Unavailable Unavailable Janine Stover, Svitlana MD Unavailable Unavailable Janine Stover, Svitlana MD Unavailable Unavailable Janine Stover, Svitlana BISWAS Unavailable Unavailable Janine Stover, Svitlana MD Unavailable Unavailable Janine Stover, Svitlana MD Unavailable Unavailable Janine Stover, Svitlana MD Unavailable Unavailable Janine Stover, Svitlana BISWAS Unavailable Unavailable Janine Stover, Svitlana BISWAS Unavailable Unavailable Janine Stover, Svitlana BISWAS Unavailable Unavailable Janine Stover, Svitlana BISWAS Unavailable Unavailable Janine Stover, Svitlana BISWSA Unavailable Unavailable Janine Stover, Svitlana BISWAS Unavailable Unavailable Janine Stover, Svitlana BISWAS Unavailable Unavailable Janine Stover, Svitlana BISWAS Unavailable Unavailable Janine Stover, Svitlana BISWAS Unavailable Unavailable Janine Stover, Svitlana BISWAS Unavailable Unavailable Janine Stover, Svitlana BISWAS Unavailable Unavailable Janine Stover, Svitlana BISWAS Unavailable Unavailable Janine Stover, Svitlana BISWAS Unavailable Unavailable Janine Stover, Svitlana BISWAS Unavailable Unavailable Janine Stover, Svitlana BISWAS Unavailable Unavailable Janine Stover, Svitlana BISWAS Unavailable Unavailable Janine Stover, Svitlana BISWAS Unavailable Unavailable Janine Stover, Svitlana BISWAS Unavailable Unavailable Janine Stover, Svitlana BISWAS Unavailable Unavailable Janine Stover, Svitlana BISWAS Unavailable Unavailable Janine Stover, Svitlana BISWAS Unavailable Unavailable Janine Stover, Svitlana BISWAS Unavailable Unavailable Janine Stover, Svitlana BISWAS Unavailable Unavailable Janine Stover, Svitlana BISWAS Unavailable Unavailable Janine Stover, Svitlana BISWAS Unavailable Unavailable Janine Stover, Svitlana BISWAS Unavailable Unavailable Janine Stover, Svitlana BISWAS Unavailable Unavailable Janine Stover, Svitlana BISWAS Unavailable Unavailable Janine Stover, Svitlana BISWAS Unavailable Unavailable Janine Stover, Svitlana BISWAS Unavailable Unavailable Janine Stover, Svitlana BISWAS Unavailable Unavailable Janine Stover, Svitlana MD Unavailable Unavailable JanineSvitlana Morrison MD Unavailable Unavailable JanineSvitlana Morrison MD Unavailable Unavailable JanineSvitlana Morrison MD Unavailable Unavailable Janine Jolanta, Svitlana MD Unavailable Unavailable JanineSvitlana Morrison MD Unavailable Unavailable Janine Jolanta, Svitlana MD Unavailable Unavailable Janine Jolanat, Svitlana MD Unavailable Unavailable Janine Stover, Svitlana MD Unavailable Unavailable Janinemanjit Stover, Svitlana MD Unavailable Unavailable Janine Stover, Svitlana MD Unavailable Unavailable Janine Stover, Svitlana MD Unavailable Unavailable Janine Stover, Svitlana MD Unavailable Unavailable Janine Stover, Svitlana MD Unavailable Unavailable Janine Stover, Svitlana MD Unavailable Unavailable Janine Stover, Svitlana MD Unavailable Unavailable Shad, J Benita REGULATOR PIN INSERTER Unavailable Unavailable Shad, J Benita REGULATOR PIN INSERTER Unavailable Unavailable Shad, J Benita REGULATOR PIN INSERTER Unavailable Unavailable Shad, J Benita REGULATOR PIN INSERTER Unavailable Unavailable Shad, J Benita REGULATOR PIN INSERTER Unavailable Unavailable Shad, J Benita REGULATOR PIN INSERTER Unavailable Unavailable Shad, J Benita REGULATOR PIN INSERTER Unavailable Unavailable Shad, J Benita REGULATOR PIN INSERTER Unavailable Unavailable Shad, J Benita REGULATOR PIN INSERTER Unavailable Unavailable Shad, J Benita REGULATOR PIN INSERTER Unavailable Unavailable Shad, J Benita REGULATOR PIN INSERTER Unavailable Unavailable Shad, J Benita REGULATOR PIN INSERTER Unavailable Unavailable Shad, J Benita REGULATOR PIN INSERTER Unavailable Unavailable Shad, J Benita REGULATOR PIN INSERTER Unavailable Unavailable Shad, J Benita REGULATOR PIN INSERTER Unavailable Unavailable Shad, J Benita REGULATOR PIN INSERTER Unavailable Unavailable Shad, J Benita REGULATOR PIN INSERTER Unavailable Unavailable Shad, J Benita REGULATOR PIN INSERTER Unavailable Unavailable Shad, J Benita REGULATOR PIN INSERTER Unavailable Unavailable Shad, J Benita REGULATOR PIN INSERTER Unavailable Unavailable Shad, J Benita REGULATOR PIN INSERTER Unavailable Unavailable Shad, J Benita REGULATOR PIN INSERTER Unavailable Unavailable Shad, J Benita REGULATOR PIN INSERTER Unavailable Unavailable Shad, J Benita REGULATOR PIN INSERTER Unavailable Unavailable Shad, J Benita REGULATOR PIN INSERTER Unavailable Unavailable Shad, J Benita REGULATOR PIN INSERTER Unavailable Unavailable Shad, J Benita REGULATOR PIN INSERTER Unavailable Unavailable Shad, J Benita REGULATOR PIN INSERTER Unavailable Unavailable Shad, J Benita REGULATOR PIN INSERTER Unavailable Unavailable Shad, J Benita REGULATOR PIN INSERTER Unavailable Unavailable Shad, J Benita REGULATOR PIN INSERTER Unavailable Unavailable Shad, J Benita REGULATOR PIN INSERTER Unavailable Unavailable Shad, J Benita REGULATOR PIN INSERTER Unavailable Unavailable Shad, J Benita REGULATOR PIN INSERTER Unavailable Unavailable Shad, J Benita REGULATOR PIN INSERTER Unavailable Unavailable Shad, J Benita REGULATOR PIN INSERTER Unavailable Unavailable Selena MCKEON MD Unavailable Unavailable MCKEON, S OSMEL MD Unavailable Unavailable MCKEON, S OSMEL MD Unavailable Unavailable MCKEON, S OSMEL MD Unavailable Unavailable MCKEON, S OSMEL MD Unavailable Unavailable MCKEON, S OSMEL MD Unavailable Unavailable MCKEON, S OSMEL MD Unavailable Unavailable MCKEON, S OSMEL MD Unavailable Unavailable MCKEON, S OSMEL MD Unavailable Unavailable MCKEON, S OSMEL MD Unavailable Unavailable MCKEON, S OSMEL MD Unavailable Unavailable MCKEON, S OSMEL MD Unavailable Unavailable MCKEON, S OSMEL MD Unavailable Unavailable MCKEON, S OSMEL MD Unavailable Unavailable MCKEON, S OSMEL MD Unavailable Unavailable MCKEON, S OSMEL MD Unavailable Unavailable MCKEON, S OSMEL MD Unavailable Unavailable MCKEON, S OSMEL MD Unavailable Unavailable MCKEON, S OSMEL MD Unavailable Unavailable MCKEON, S OSMEL MD Unavailable Unavailable MCKEON, S OSMEL MD Unavailable Unavailable MCKEON, S OSMEL MD Unavailable Unavailable MCKEON, S OSMEL MD Unavailable Unavailable MCKEON, S OSMEL MD Unavailable Unavailable MCKEON, S OSMEL MD Unavailable Unavailable MCKEON, S OSMEL MD Unavailable Unavailable MCKEON, S OSMEL MD Unavailable Unavailable MCKEON, S OSMEL MD Unavailable Unavailable MCKEON, S OSMEL MD Unavailable Unavailable MCKEON, S OSMEL MD Unavailable Unavailable MCKEON, S OSMEL MD Unavailable Unavailable MCKEON, S OSMEL MD Unavailable Unavailable MCKEON, S OSMEL MD Unavailable Unavailable MCKEON, S OSMEL MD Unavailable Unavailable MCKEON, S OSMEL MD Unavailable Unavailable MCKEON, S OSMEL MD Unavailable Unavailable MCKEON, S OSMEL MD Unavailable Unavailable MCKEON, S OSMEL MD Unavailable Unavailable MCKEON, S OSMEL MD Unavailable Unavailable MCKEON, S OSMEL MD Unavailable Unavailable MCKEON, S OSMEL MD Unavailable Unavailable MCKEON, S OSMEL MD Unavailable Unavailable MCKEON, S OSMEL MD Unavailable Unavailable MCKEON, S OSMEL MD Unavailable Unavailable MCKEON, S OSMEL MD Unavailable Unavailable MCKEON, S OSMEL MD Unavailable Unavailable MCKEON, S OSMEL MD Unavailable Unavailable MCKEON, S OSMEL MD Unavailable Unavailable MCKEON, S OSMEL MD Unavailable Unavailable MCKEON, S OSMEL MD Unavailable Unavailable MCKEON, S OSMEL MD Unavailable Unavailable MCKEON, S OSMEL MD Unavailable Unavailable MCKEON, S OSMEL MD Unavailable Unavailable Re-disclosure Warning The records that you are about to access may contain information from federally-assisted alcohol or drug abuse programs. If such information is present, then the following federally mandated warning applies: This information has been disclosed to you from records protected by federal confidentiality rules (42 CFR part 2). The federal rules prohibit you from making any further disclosure of this information unless further disclosure is expressly permitted by the written consent of the person to whom it pertains or as otherwise permitted by 42 CFR part 2. A general authorization for the release of medical or other information is NOT sufficient for this purpose. The Federal rules restrict any use of the information to criminally investigate or prosecute any alcohol or drug abuse patient.The records that you are about to access may contain highly sensitive health information, the redisclosure of which is protected by Article 27-F of the [facility] Public Health law. If you continue you may have access to information: Regarding HIV / AIDS; Provided by facilities licensed or operated by the [facility] Office of Mental Health; or Provided by the [facility] Office for People With Developmental Disabilities. If such information is present, then the following [facility] mandated warning applies: This information has been disclosed to you from confidential records which are protected by state law. State law prohibits you from making any further disclosure of this information without the specific written consent of the person to whom it pertains, or as otherwise permitted by law. Any unauthorized further disclosure in violation of state law may result in a fine or intermediate sentence or both. A general authorization for the release of medical or other information is NOT sufficient authorization for further disc losure. Advance Directives Directive Description Sample Selector Target Network Analyst Status Observation Descr iption Data Source(s) COVID Screening Performed completed COVI D Screening Performed [place] ([facility]) packet given Pt Bill of Rights, Priv Prac, Ad Dir completed packet given Pt Bill of Rights, Priv Prac, Ad Dir [place] ([facility]) Note: Pt declined AD packet COVID Screening Performed completed COVI D Screening Performed [place] ([facility]) Note: verbal screen negative Ebola Screening Performed completed Ebol a Screening Performed [place] ([facility]) Note: Within the last month, have you tr aveled outside of the [place]? -NO Family History Family Member Name Family Member Gender Family Member Status Date o f Status Description Data Source(s) Unknown Female Problem [facility] ([facility]) Encounters Encounter Providers Location Date Indications Data Source(s ) Outpatient Attender: Ben Castillo MDReferrer: Don Hernández [facility]_[id number] 05/01/2021 09:35:46 AM EDT [facility] <td ID="encounterTypeDescriptionID0">Med ical Clearance</td><td>Aster Hutchisonamador </td><td>[facility]</td><td>04/26/2021</td><td>5:37PM</td><td>11:59PM</td><td><content ID="encounterDiagnosisID0-0">Cataract</content>, <content ID="encounterDiagnosisID0-1">Atrial Fibrillation</content>, <content ID="encounterDiagnosisID0-2">Coronary Artery Disease</content>, <content ID="encounterDiagnosisID0-3">Hyperlipidemia</content></td>Unknown Attender: Aster Hernández DO [facility] 04/26/2021 05:37:00 PM EDT - 04/26/2021 11:59:00 PM EDT CataractAtrial FibrillationCoronary Sharon ry DiseaseHyperlipidemia [place] ([facility] Cataract Atrial Fibrillation Coronary Artery Disease Hyperlipidemia Outpatient Attender: Ben Castillo MDReferrer: Don Hernández [facility]_[id number] 04/19/2021 02:36:41 PM EDT [facility] Outpatient Attender: Ben Castillo MDReferrer: Don Hernández [facility]_[id number] 04/19/2021 02:36:12 PM EDT [facility] Outpatient Attender: Ben Castillo MDReferrer: Don Hernández [facility]_[id number] 04/19/2021 02:36:11 PM EDT [facility] Outpatient<td ID="encounterTypeDescripti onID0">Cataract Evaluation</td><td></td><td>[facility]</td><td>04/05/2021</td><td>8:08AM</td><td>10:13AM</td><td></td> [facility] 04/05/2021 08:08:00 AM EDT - 04/05/2021 10:13:00 AM EDT [place] ([facility]) Outpatient Attender: OSMEL PETERSON MD SJP.CT-SJP.SYR 03/2021 07:59:02 AM EDT - 03/17/2021 08:41:16 AM EDT [facility] <td ID="encounterTypeDescriptionID1">1 Y ear Follow-Up</td><td></td><td>[facility]</td><td>03/04/2021</td><td>8:12AM</td><td>9:13AM</td><td></td>Outpatient [facility] 03/04/2021 08:12:00 AM EDT - 03/04/2021 09:13:00 AM EDT [place] ([facility]) Outpatient Attender: Ben Castillo MDReferrer: Don Hernandezifeanyiamador DO [id number] 02/10/2021 12:33:33 PM EDT [facility] Out[facility] Attender: Ben Castillo MDReferrer: Don Hernandezherbert DO [id number] 02/10/2021 11:50:25 AM EDT [facility] Outpatient Attender: Ben Castillo MDReferrer: Don Hernandezifeanyiello DO [id number] 02/10/2021 11:01:58 AM EDT [facility] Outpatient Attender: Ben Castillo MDReferrer: Don Hernandezguello DO [id number] 02/10/2021 10:50:42 AM EDT [facility] Out[facility] Attender: Ben Castillo MDReferrer: Don Hernandezguello DO [id number] 02/09/2021 02:37:18 PM EDT [facility] Outpatient Attender: Ben Castillo MDReferrer: Don ontiveros [facility] _[id number] 02/05/2021 10:03:45 AM EDT [facility] Outpatient Attender: Svitlana Stover MD Marie[facility] 01/25/2021 01:20:00 PM EDT [facility] ([facility]) Outpatient Attender: Svitlana Stover MD 01/21/2021 08 :07:00 AM EDT lab [facility] lab <td ID="encounterTypeDescriptionID0">Hos pital Follow-up</td><td>Aster Hernández DO</td><td>[facility]</td><td>12/30/2020</td><td>1:25PM</td><td>2:48PM</td><td><content ID="encounterDiagnosisID0-0">Atrial Fibrillation</content>, <content ID="encounterDiagnosisID0-1">Chronic Obstructive Pulmonary Disease</content>, <content ID="encounterDiagnosisID0-2">Coronary Artery Disease</content>, <content ID="encounterDiagnosisID0-3">Offc Spec Use of Anticoagulants</content>, <content ID="encounterDiagnosisID0-4">Ileus</content></td>Unknown Attender: Aster Hernández DO [facility] 12/30/2020 01:25:00 PM EDT - 12/30/2020 02:48:41 PM EDT IleusChronic Obstructive Pulmonary Disea seLong Term Use of AnticoagulantsAtrial FibrillationCoronary Artery Disease [place] ([facility]) Ileus Chronic Obstructive Pulmonary Disease Offc Spec Use of Anticoagulants Atrial Fibrillation Coronary Artery Disease Inpatient Attender: OSMEL MCKEON MDAt tender: ANGEL HENLEY DOAdmitter: OSMEL MCKEON MD [id number] 12/17/2020 04:50:00 PM EDT - 12/20/2020 06:56:00 PM EDT [facility] Patient discharged. <td ID="encounterTypeDescriptionID0">Tel ephonic Encounter</td><td>Aster Hernández DO</td><td>[facility]</td><td>12/03/2020</td><td>8:00AM</td><td>8:37AM</td><td><content ID="encounterDiagnosisID0-0">Atrial Fibrillation</content>, <content ID="encounterDiagnosisID0-1">Chronic Obstructive Pulmonary Disease</content>, <content ID="encounterDiagnosisID0-2">Coronary Artery Disease</content>, <content ID="encounterDiagnosisID0-3">Hyperlipidemia</content>, <content ID="encounterDiagnosisID0-4">Prediabetes</content>, <content ID="encounterDiagnosisID0-5">Stroke Syndrome</content>, <content ID="encounterDiagnosisID0-6">Low Back Pain</content></td>Outpatient Attender: Aster Hernández [facility] 12/03/2020 08:00:00 AM EDT - 12/03/2020 08:37:00 AM EDT Low Back PainChronic Obstructive Pulmona ry DiseasePrediabetesAtrial FibrillationCoronary Artery DiseaseHyperlipidemiaStroke Syndrome [place] ([facility]) Low Back Pain Chronic Obstructive Pulmonary Disease Prediabetes Atrial Fibrillation Coronary Artery Disease Hyperlipidemia Stroke Syndrome Outpatient Attender: Ben VALDOVINOSeferrer: Don Hernández [facility]_[id number] 12/01/2020 08:07:29 PM EDT [facility] Outpatient Attender: OSMEL PETERSON MD SJP.CT-SJP.SYR 12/2020 02:00:51 PM EDT - 11/11/2020 02:36:18 PM EDT [facility] Outpatient Attender: Ben VALDOVINOSeferrer: Don Hernández [facility]_[id number] 10/29/2020 03:27:48 PM EDT [facility] Outpatient Attender: Ben Castillo MDReferrer: Patr weston Hernandezguello DO [id number] 10/28/2020 05:51:14 PM EDT [facility] Out[facility] Attender: Ben Castillo MDReferrer: Patr weston Carguello DO [id number] 10/28/2020 01:31:35 PM EDT [facility] Out[facility] Attender: Ben Castillo MDReferrer: Patr iclaure Carguello DO [id number] 10/28/2020 01:06:32 PM EDT [facility] Outpatient Attender: Ben Castillo MDReferrer: Patr iclaure Carguello DO [id number] 10/28/2020 01:06:32 PM EDT [facility] Out[facility] Attender: Ben Castillo MDReferrer: Patr weston Carguello DO [id number] 10/28/2020 09:17:15 AM EDT [facility] Out[facility] Attender: Ben Castillo MDReferrer: Patr weston Carguello DO [id number] 10/25/2020 07:04:16 PM EDT [facility] Out[facility] Attender: Ben Castillo MDReferrer: Patr weston Carguello DO [id number] 10/25/2020 07:04:07 PM EDT [facility] Out[facility] Attender: Ben Castillo MDReferrer: Patr weston Carguello DO [id number] 10/23/2020 09:16:47 AM EDT [facility] Outpatient Attender: Benita Kulkarni NPReferrer: Deedee Kulkarni REGULATOR PIN INSERTER SJP.CT-SJP.SYR 10/14/2020 10:31:26 AM EDT - 10/14/2020 11:11:23 AM EDT [facility] Outpatient Attender: Ben Castillo MDReferrer: Patr weston Carguello DO [id number] 10/14/2020 10:06:54 AM EDT [facility] Outpatient Attender: Benita BRICENO ttender: OSMEL PETERSON MDReferrer: Benita Kulkarni NP [email or web address]-SJP.SYR 10/14/2020 12:00:00 AM EDT [facility] Outpatient Attender: Ben Castillo MDReferrer: Don Hernández DO [id number] 10/13/2020 09:45:14 AM EDT [facility] Outpatient Attender: Ben Castillo MDReferrer: Don Hernández DO [id number] 10/13/2020 09:41:20 AM EDT [facility] Outpatient Attender: Benita Kulkarni NP SJP.CT-SJP.SYR 07/2020 12:00:00 AM EDT - 10/07/2020 09:29:33 AM EDT [facility] Outpatient<td ID="encounterTypeDescripti onID0">COVID 19 IMM</td><td>More Dorsey RN</td><td>[facility]</td><td>08/20/2020</td><td>10:12AM</td><td>10:15AM</td><td></td> Attender: Antoinette Salazar RN [facility] 08/20/2020 10:12:00 AM EST - 08/20/2020 10:15:10 AM EST [facility]) Outpatient Attender: Ben Castillo MD 08/05/2020 09:48:00 AM EST [facility] Outpatient Attender: Ben Castillo MD 08/05/2020 09:48:00 AM EST [facility] Outpatient Attender: Ben Castillo MDReferrer: Don Hernández DO [id number] 08/05/2020 07:57:06 AM EST [facility] Outpatient Attender: Ben Castillo MDReferrer: Don Hernández _[id number] 08/05/2020 04:30:50 AM EST [facility] Out[facility] Attender: Ben Castillo MDReferrer: Don Hernandezherbert [facility]_[id number] 07/31/2020 04:27:21 AM EST [facility] <td ID="encounterTypeDescriptionID1">Cor respondence</td><td>Aster Hernández DO</td><td></td><td>08/09/2020</td><td>07/23/2020 12:18PM</td><td>07/23/2020 11:59PM</td><td></td>Unknown Attender: Aster Hernández DO 07/23/2020 12:18:00 PM EST - 07/23/2020 11:59:00 PM EST [place] ([facility]) Outpatient<td ID="encounterTypeDescripti onID2">COVID 19 IMM</td><td>Ambrose Fernandez REGULATOR PIN INSERTER</td><td>[facility]</td><td>07/23/2020</td><td>9:49AM</td><td>10:12AM</td><td></td> Attender: Ambrose Fernandez [facility] 07/23/2020 09:49:00 AM EST - 07/23/2020 10:12:49 AM EST [place] ([facility]) Outpatient 06/10/2020 01:57:02 PM EST [facility] 06/10/2020 01:57:02 PM EST [facility] Attender: Ben Castillo MDReferrer: Don Hernandezifeanyiamador [id number] 05/25/2020 10:56:02 AM EST [facility] <td ID="encounterTypeDescriptionID3">Tel ephonic Encounter</td><td>Aster Hernández DO</td><td>[facility]</td><td>05/20/2020</td><td>07/17/2019 10:00AM</td><td>10:22AM</td><td><content ID="encounterDiagnosisID3-0">Stroke Syndrome</content>, <content ID="encounterDiagnosisID3-1">Chronic Obstructive Pulmonary Disease</content>, <content ID="encounterDiagnosisID3-2">Coronary Artery Disease</content>, <content ID="encounterDiagnosisID3- 3">Hyperlipidemia</content>, <content ID="encounterDiagnosisID3-4">Aneurysm of Abdominal Aorta Infrarenal</content></td>Outpatient Attender: Aster Hernández DO [facility] 05/20/2020 10:00:00 AM EST - 05/20/2020 10:22:35 AM EST Chronic Obstructive Pulmonary DiseaseChronic Obstructive Pulmonary DiseaseChronic Obstructive Pulmonary DiseaseCoronary Artery DiseaseCoronary Artery DiseaseCoronary Artery DiseaseHyperlipidemiaHyperlipidemiaHyperlipidemia Aneurysm of Abdominal Aorta InfrarenalStroke SyndromeAneurysm of Abdominal Aorta InfrarenalStroke SyndromeAneurysm of Abdominal Aorta InfrarenalStroke Syndrome [place] ([facility]) Chronic Obstructive Pulmonary Disease Chronic Obstructive Pulmonary Disease Chronic Obstructive Pulmonary Disease Coronary Artery Disease Coronary Artery Disease Coronary Artery Disease Hyperlipidemia Hyperlipidemia Hyperlipidemia Aneurysm of Abdominal Aorta Infrarenal Stroke Syndrome Aneurysm of Abdominal Aorta Infrarenal Stroke Syndrome Aneurysm of Abdominal Aorta Infrarenal Stroke Syndrome Outpatient Attender: Ben VALDOVINOSeferrer: Don Hernández [id number] 05/13/2020 03:01:14 PM EST [facility] Outpatient Attender: Ben Dallaserrer: Don Hernández DO [id number] 05/13/2020 08:03:45 AM EST [facility] Recurring Patient Referrer: OSMEL PETERSON MD 04/13/2020 09:55:25 AM EDT [facility] 04/13/2020 09:04:24 AM EDT [facility] 04/13/2020 08:57:25 AM EDT [facility] 04/13/2020 08:57:18 AM EDT [facility] 04/13/2020 08:56:37 AM EDT [facility] Attender: OSMEL PETERSON MD SJP.CT-SJP.SYR 12/2019 12:00:00 AM EDT - 04/13/2020 10:20:09 AM EDT [facility] Outpatient Attender: Ben Castillo MD 01/22/2020 09:59:00 AM EDT [facility] Outpatient Attender: Ben Castillo MD 01/22/2020 09:59:00 AM EDT [facility] Immunizations Vaccine Date Status Description Data Source(s) Influenza, high dose seasonal 04/26/2021 06:30:00 PM EDT complet ed <td ID="Xpogorreulqpk-Oujypvlyicr-QK7">Influenza, high-dose (over 65)</td><td ID="ImmunizationDose-0">3</td><td>04/26/2021</td><td ID="Iwqehfyvgslmw-IiqdlTjay-YS6"></td><td></td><td ID="Comuqpkkcixbk-Oapyzj-QR9">Active (Ordered)</td><td>[facility]</td><td ID="Ububtzttqwnxg-Uiaps-Uzic-Comment-ID0"></td> [place] ([facility]) Moderna COVID-19 08/20/2020 10:17:00 AM EST completed <td ID="Xiavckqmajast-Qsbgazgbcwz-TV1">ID</td><td ID="ImmunizationDose-9">2</td><td>08/20/2020</td><td ID="Tlhzhigusarfp-PjbyyLoyx-IY1">Left Deltoid</td><td></td><td ID="Rndiyypxajrfx-Wiofay-ZI9">Complete (Administered)</td><td>[facility]</td><td ID="Rlkbrabiaqcqe-Xybym-Nmzo-Comment-ID9"></td> [place] ([facility]) Note: Given by Jared. COVID-19 VACCINE a 08/20/2020 12:00:00 AM EST completed [facility] Vaccine Series Complete: YESThis Data wa s Submitted to [facility] Via [employer]. Moderna COVID-19 07/23/2020 01:00:00 PM EST completed <td ID="Ffocyvgopfkcs-Yubrjwnpacl-VX7">Moderna COVID-19</td><td ID="ImmunizationDose-8">1</td><td>07/23/2020</td><td ID="Ncfksssyrtjwo-XkrdfJsmt-BQ0">Left Deltoid</td><td></td><td ID="Utsycxidlmmki-Rmawcm-LX9">Complete (Administered)</td><td>[facility]</td><td ID="Pksnmpvxpramq-Wmlxt-Swza-Comment-ID8"></td> [place] ([facility]) COVID-19 VACCINE a 07/23/2020 12:00:00 AM EST completed [facility]SIIS Vaccine Series Complete: NOThis Data was Submitted to [facility] Via [employer]. Influenza, high dose seasonal 03/23/2020 10:17:00 AM EDT complet ed <td ID="Jditrcuqxmhud-Gtprtljunre-IG3">Influenza, high-dose (over 65)</td><td ID="ImmunizationDose-7">2</td><td>03/23/2020</td><td ID="Erywqcnubkzcv-GfkkcPdlo-CT5"></td><td></td><td ID="Xjevxzinwwgff-Wnwgaw-SB7">Complete (Reported)</td><td>Patient</td><td ID="Jnqctwceuguuw-Zyywk-Wvec-Comment-ID7"></td> [place] ([facility]) Medications Medication Brand Name Start Date Product Form Dose Route Admi nistrative Instructions Pharmacy Instructions Status Indications Reaction Description Data Source(s) Finasteride 5 MG Oral Tablet Finasteride 5 MG Oral Tablet 12:00:00 AM EDT 1 active finasteride 5 MG Oral Tablet [place] ([facility]) moxifloxacin 5 MG/ML Ophthalmic Solution 0.5 % MOXIFLOXACIN HCL 04/05/2021 12:00:00 AM EDT drops 3 1 DROP IN RIGHT EYE FOUR TIMES A DAY START 3 DAYS PRIOR TO SURGERY 1 DROP IN RIGHT EYE FOUR TIMES A DAY STA RT 3 DAYS PRIOR TO SURGERY SOLD: 04/08/2021 [facility] 1 % 04/05/2021 12:00:00 AM EDT drops,suspension 10 1 DROP IN RIGHT EYE FOUR TIMES A DAY - BEGIN AFTER SURGERY 1 DROP IN RIGHT EYE FOUR TIMES A DAY - B EGIN AFTER SURGERY SOLD: 04/08/2021 [facility] 0.5 % 04/05/2021 12:00:00 AM EDT drops 10 1 DROP IN RIGHT EYE FOUR TIMES A DAY - START 3 DAYS PRIOR TO SURGERY 1 DROP IN RIGHT EYE FOUR TIMES A DAY - S TART 3 DAYS PRIOR TO SURGERY SOLD: 04/08/2021 [facility] 25 mg 03/11/2021 12:00:00 AM EDT tablet 90 TAKE ONE TABLET BY MOUTH EVERY DAY TAKE ONE TABLET BY MOUTH EVERY DAY SOLD: 03/16/2021 [employer] Spironolactone 25 MG Oral Tablet spironolactone (ALDAC TONE) 25 MG tablet spironolactone (ALDACTONE) 25 MG tablet 03/10/2021 12:00:00 AM EDT 25 mg Oral active Take 1 tablet (25 mg tota l) by mouth daily [facility] Finasteride 5 MG Oral Tablet FINASTERIDE 01/26/2021 12:00:00 AM EDT ta blet 90 TAKE ONE TABLET BY MOUTH EVERY DAY TAKE ONE TABLET BY MOUTH EVERY DAY SOLD: 01/28/2021 [employer] Finasteride 5 MG Oral Tablet finasteride (PROSCAR) 5 M G tablet finasteride (PROSCAR) 5 MG tablet 01/26/2021 12:00:00 AM EDT 5 mg Oral active Take 5 mg by mouth daily [facility] Finasteride 5 MG Oral Tablet FINASTERIDE 01/26/2021 12:00:00 AM EDT ta blet 90 TAKE ONE TABLET BY MOUTH EVERY DAY TAKE ONE TABLET BY MOUTH EVERY DAY SOLD: 04/25/2021 [employer] Finasteride 5 MG Oral Tablet Finasteride 01/25/2021 12:00:00 AM EDT ORAL active [facility] ([facility]) potassium chloride (KLOR-CON) packet 20 mEq 6967-9936-64 12/20/2020 04:00:00 AM EDT 20 meq Oral completed 20 mEq , Oral, 2 times daily, First dose on Sun12/20/20 at 0400, For 2 doses [facility] Medication administered onsite 1 ML heparin sodium, porcine 1000 UNT/ML Injection heparin (porcine) injection 4,900 Units heparin (porcine) injection 4,900 Units 12/19/2020 01:00:00 PM EDT 60 U/kg Intravenous completed 4,900 Unit s (rounded from 4,896 Units = 60 Units/kg 81.6 kg), Intravenous, Once, On Sun12/19/20 at 1300, For 1 dose
Do not exceed 5,000 units or 60 units/kg (whichever is less)
[facility] Medication administered onsite 500 ML heparin sodium, porcine 50 UNT/ML Injection heparin infusion 25,000 units in 500 mL 0.45% NaCl heparin infusion 25,000 units in 500 mL 0.45% NaCl 12/19/2020 01:00:00 PM EDT 12 U/kg/h Intravenous active 12 Units/kg/hr 81.6 kg (19.584 mL/hr, rounded to 19.6 mL/hr), Intravenous, at 19.6 mL/hr, Continuous, Starting on Sun12/19/20 at 1300
For Cardiac/BridgeaPTT (seconds) Heparin Dose (weight based)< 34 Bolus: 60 units/kg IV (Maximum bolus: 5,000 units) and increase infusion 3 units/kg/hr IV34 - 50 Bolus: 30 units/kg IV (Maximum bolus: 5,000 units) and increase infusion 2 units/kg/hr IV50.1 - 58 No bolus. Increase infusion 1 unit/kg/hr IV58.1 - 87 Therapeutic, No Dluspj47.1 - 97 Decrease infusion 1 unit/kg/hr IV 97.1 - 110Hold infusion for 30 minutes & decrease infusion 2 units/kg/hr IV> 110 Call MD if patient is bleeding. Hold infusion for 60 minutes & decrease infusion 3 units/kg/hr IVInitial heparin IV infusion rate:Do not exceed 1000 units/hr or 12 units/kg/hr initially (whichever is less)Infuse this medication only through single port tubing ([employer] Infusion Set ref [id number]). Medication and tubing is to be discarded if infusion off for 4 hours.
[facility] Medication administered onsite 1 ML heparin sodium, porcine 1000 UNT/ML Injection heparin (porcine) injection 100-5,000 Units heparin (porcine) injection 100-5,000 Units 12/19/2020 12:26:47 PM EDT U Intravenous active 100- 5,000 Units, Intravenous, As needed, other, Starting on 12/19/20 at 1226
Round dose to nearest 100 units aPTT: < 34 &n bsp; Bolus: 60 units/kg IV (Maximum bolus: 5,000 units) 34 - 50 Bolus: 30 units/kg IV (Maximum bolus: 5,000 units)
[facility] Medication administered onsite Finasteride 5 MG Oral Tablet finasteride (PROSCAR) tab let 5 mg finasteride (PROSCAR) tablet 5 mg 12/19/2020 11:00:00 AM EDT 5 mg Oral active 5 mg, Oral, Daily, First dose (after last modification) on 12/19/20 at 1100
Formulary substitution for dutasteride (Avodart)
[facility] Medication administered onsite Spironolactone 25 MG Oral Tablet spironolactone (ALDAC TONE) tablet 25 mg spironolactone (ALDACTONE) tablet 25 mg 12/19/2020 11:00:00 AM EDT 25 mg Oral active 25 mg, Oral, Da maikel, First dose on 12/19/20 at 1100
For administration and preparation considerations, refer to Hazardous Drugs in the Workplace Policy on Intranet.
[facility] Medication administered onsite Furosemide 80 MG Oral Tablet furosemide (LASIX) tablet 80 mg furosemide (LASIX) tablet 80 mg 12/19/2020 10:00:00 AM EDT 80 mg Oral activ e 80 mg, Oral, LOOPBID, First dose on Sun12/19/20 at 1000 [facility] Medication administered onsite normal saline flush 0.9 % injection 3 mL [id number] 12/18/2020 09:00:00 AM EDT 3 mL Intravenous active 3 mL , Intravenous, PROTOCOL, First dose on Sun12/18/20 at 0900
flush per protocol, D/C Main IV fluid if appropriate
[facility] Medication administered onsite dextrose 5 % and sodium chloride 0.45 % infusion 3696-9111-0 0 12/17/2020 11:45:00 PM EDT Intravenous active at 75 mL/hr, Intravenous, Continuous, Starting on Sun12/17/20 at 2345
Hep lock with good PO
[facility] Medication administered onsite normal saline flush 0.9 % injection 3 mL [id number] 12/17/2020 11:45:00 PM EDT 3 mL Intravenous active 3 mL , Intravenous, Every 8 hours (scheduled), First dose on Sun12/17/20 at 2345
flush per protocol, D/C Main IV fluid if appropriate
[facility] Medication administered onsite fentaNYL Citrate (PF) (SUBLIMAZE) injection 50 mcg [id number] 12/17/2020 11:20:09 PM EDT 50 ug Intravenous active 50 mcg, Intravenous, Every 4 hours PRN, severe pain (7-10), Starting on Sun12/17/20 at 2320, For 7 days [facility] Medication administered onsite fentaNYL Citrate (PF) (SUBLIMAZE) injection 25 mcg [id number] -[id number] 12/17/2020 11:18:50 PM EDT 25 ug Intravenous active 25 mcg, Intravenous, Every 4 hours PRN, moderate pain (4-6), Starting on Sun12/17/20 at 2318, For 7 days [facility] Medication administered onsite 2 ML Metoclopramide 5 MG/ML Prefilled Sy ringe metoclopramide (REGLAN) injection 10 mg metoclopramide (REGLAN) injection 10 mg 12/17/2020 11:13:41 PM E DT 10 mg Intravenous active 10 mg, I ntravenous, Every 6 hours PRN, for Nausea/Vomiting not relieved by zofran, Starting on Sun12/17/20 at [facility] Medication administered onsite ondansetron (ZOFRAN) injection 4 mg 23219-081-72 12/17/2020 11:13:4 1 PM EDT 4 mg Intravenous active 4 mg, In travenous, Every 4 hours PRN, nausea, vomiting, Starting on Sun12/17/20 at [facility] Medication administered onsite Acetaminophen 650 MG Rectal Suppository acetaminophen (TYLENOL) suppository 650 mg acetaminophen (TYLENOL) suppository 650 mg 12/17/2020 11:13:25 P M EDT 1 {suppository} Rectal active 650 mg (1 suppository), Rectal, Every 4 hours PRN, mild pain (1-3), headaches, fever, Starting on Sun12/17/20 at [facility] Medication administered onsite ondansetron (ZOFRAN) injection 4 mg [id number] 12/17/2020 08:55:0 0 PM EDT 4 mg completed 4 mg, Intr avenous Push, Once, On Sun12/17/20 at 205, For 1 dose [facility] Medication administered onsite iopamidol (ISOVUE-370) 76 % 70 mL [id number] 12/17/2020 08:31:32 PM E DT 70 mL Intravenous completed 70 mL, Intrav enous, Once in imaging, contrast, Starting on Sun12/17/20 at 203, For 1 dose [facility] Medication administered onsite ondansetron (ZOFRAN) 4 MG/2ML injection [id number] 12/18/19 08:30:15 PM EDT completed Starting on 12/17/20 at 2030, For 1 dose
Allyn Johns: yvetteinet override
[facility] Medication administered onsite sodium chloride 0.9% (NS) bolus 500 mL 08:25:00 PM EDT 500 mL Intravenous completed 500 mL, In travenous, Administer over 1 Hours, Once, On Sun12/17/20 at 2025, For 1 dose [facility] Medication administered onsite Morphine Sulfate (PF) injection 4 mg 5930-6658-95 12/17/2020 07:00: 00 PM EDT 4 mg Intravenous completed 4 mg, In travenous, Once, On Sun12/17/20 at 1900, For 1 dose [facility] Medication administered onsite sodium chloride 0.9% (NS) bolus 500 mL 07:00:00 PM EDT 500 mL Intravenous completed 500 mL, In travenous, Administer over 1 Hours, Once, On Sun12/17/20 at 1900, For 1 dose [facility] Medication administered onsite Morphine Sulfate (PF) injection 4 mg [id number] 12/17/2020 05:20: 00 PM EDT 4 mg Intravenous completed 4 mg, In travenous, Once, On Sun12/17/20 at 1720, For 1 dose [facility] Medication administered onsite ondansetron (ZOFRAN) injection 4 mg 53378-529-01 12/17/2020 05:20:0 0 PM EDT 4 mg Intravenous completed 4 mg, In travenous, Once, On Sun12/17/20 at 1720, For 1 dose [facility] Medication administered onsite 80 mg 11/29/2020 12:00:00 AM EDT tablet 180 TAKE ONE TABLET BY MOUTH TWICE A DAY TAKE ONE TABLET BY MOUTH TWICE A DAY SOLD: 03/16/2021 [facility] Furosemide 80 MG Oral Tablet furosemide (LASIX) 80 MG tablet furosemide (LASIX) 80 MG tablet 11/29/2020 12:00:00 AM EDT 80 mg Oral activ e Take 1 tablet (80 mg total) by mouth 2 (two) times a day [facility] 80 mg 11/29/2020 12:00:00 AM EDT tablet 180 TAKE ONE TABLET BY MOUTH TWICE A DAY TAKE ONE TABLET BY MOUTH TWICE A DAY SOLD: 12/01/2020 [facility] Furosemide 80 MG Oral Tablet furosemide (LASIX) 80 MG tablet furosemide (LASIX) 80 MG tablet 10/14/2020 12:00:00 AM EDT 80 mg Oral activ e Take 1 tablet (80 mg total) by mouth 2 (two) times a day [facility] Furosemide 80 MG Oral Tablet furosemide (LASIX) 80 MG tablet furosemide (LASIX) 80 MG tablet 10/07/2020 12:00:00 AM EDT 80 mg Oral abort ed Take 1 tablet (80 mg total) by mouth daily [facility] Furosemide 80 MG Oral Tablet Furosemide 80 MG Oral Tablet 12:00:00 AM EDT 1 active furosemide 80 MG Oral Tablet TASNEEM ([facility]) 80 mg 10/07/2020 12:00:00 AM EDT tablet 90 TAKE ONE TABLET BY MOUTH EVERY DAY TAKE ONE TABLET BY MOUTH EVERY DAY SOLD: 10/08/2020 [facility] 5 mg 07/15/2020 12:00:00 AM EST tablet 180 TAKE ONE TABLET BY MOUTH TWICE A DAY TAKE ONE TABLET BY MOUTH TWICE A DAY SOLD: 04/20/2021 [facility] 5 mg 07/15/2020 12:00:00 AM EST tablet 180 TAKE ONE TABLET BY MOUTH TWICE A DAY TAKE ONE TABLET BY MOUTH TWICE A DAY SOLD: 01/19/2021 [facility] 5 mg 07/15/2020 12:00:00 AM EST tablet 180 TAKE ONE TABLET BY MOUTH TWICE A DAY TAKE ONE TABLET BY MOUTH TWICE A DAY SOLD: 07/16/2020 [facility] 5 mg 07/15/2020 12:00:00 AM EST tablet 180 TAKE ONE TABLET BY MOUTH TWICE A DAY TAKE ONE TABLET BY MOUTH TWICE A DAY SOLD: 10/20/2020 [facility] 0.5 mg 07/13/2020 12:00:00 AM EST capsule 90 TAKE ONE CAPSULE BY MOUTH EVERY DAY TAKE ONE CAPSULE BY MOUTH EVERY DAY SOLD: 10/08/2020 [facility] 0.5 mg 07/13/2020 12:00:00 AM EST capsule 90 TAKE ONE CAPSULE BY MOUTH EVERY DAY TAKE ONE CAPSULE BY MOUTH EVERY DAY SOLD: 01/05/2021 [facility] 0.5 mg 07/13/2020 12:00:00 AM EST capsule 90 TAKE ONE CAPSULE BY MOUTH EVERY DAY TAKE ONE CAPSULE BY MOUTH EVERY DAY SOLD: 07/14/2020 [facility] apixaban 5 MG Oral Tablet Apixaban (ELIQUIS) 5 MG TABS tablet Apixaban (ELIQUIS) 5 MG TABS tablet 07/12/2020 12:00:00 AM EST 5 mg Oral a ctive Take 1 tablet (5 mg total) by mouth 2 (two) times a day [facility] 40 mg 03/19/2020 12:00:00 AM EDT tablet 90 TAKE ONE TABLET BY MOUTH EVERY DAY TAKE ONE TABLET BY MOUTH EVERY DAY SOLD: 07/05/2020 [facility] 40 mg 03/19/2020 12:00:00 AM EDT tablet 90 TAKE ONE TABLET BY MOUTH EVERY DAY TAKE ONE TABLET BY MOUTH EVERY DAY SOLD: 03/24/2020 [facility] 25 mg 03/03/2020 12:00:00 AM EDT tablet 90 TAKE ONE TABLET BY MOUTH EVERY DAY TAKE ONE TABLET BY MOUTH EVERY DAY SOLD: 06/07/2020 [facility] 25 mg 03/03/2020 12:00:00 AM EDT tablet 90 TAKE ONE TABLET BY MOUTH EVERY DAY TAKE ONE TABLET BY MOUTH EVERY DAY SOLD: 12/08/2020 [facility] Spironolactone 25 MG Oral Tablet spironolactone (ALDAC TONE) 25 MG tablet spironolactone (ALDACTONE) 25 MG tablet 03/03/2020 12:00:00 AM EDT 25 mg Oral active Take 1 tablet (25 mg tota l) by mouth daily [facility] 25 mg 03/03/2020 12:00:00 AM EDT tablet 90 TAKE ONE TABLET BY MOUTH EVERY DAY TAKE ONE TABLET BY MOUTH EVERY DAY SOLD: 03/03/2020 [facility] 25 mg 03/03/2020 12:00:00 AM EDT tablet 90 TAKE ONE TABLET BY MOUTH EVERY DAY TAKE ONE TABLET BY MOUTH EVERY DAY SOLD: 09/08/2020 [facility] atorvastatin 40 MG Oral Tablet Atorvastatin Calcium 40 MG Oral Tablet Atorvastatin Calcium 40 MG Oral Tablet 01/15/2020 12:00:00 AM EDT 1 aborted atorvastatin 40 MG Oral Tablet Adam DAN ([facility]) Dutasteride 0.5 MG Oral Capsule Dutasteride 0.5 MG Oral Caps ule 01/12/2020 12:00:00 AM EDT 1 aborted dutaste ride 0.5 MG Oral Capsule TASNEEM ([facility]) atorvastatin 40 MG Oral Tablet ATORVASTATIN CALCIUM 01/06/2020 1 2:00:00 AM EDT tablet 90 TAKE ONE TABLET BY MOUTH EVERY D AY TAKE ONE TABLET BY MOUTH EVERY DAY SOLD: 09/24/2020 [facility] atorvastatin 40 MG Oral Tablet ATORVASTATIN CALCIUM 01/06/2020 1 2:00:00 AM EDT tablet 90 TAKE ONE TABLET BY MOUTH EVERY D AY TAKE ONE TABLET BY MOUTH EVERY DAY SOLD: 06/28/2020 [facility] atorvastatin 40 MG Oral Tablet ATORVASTATIN CALCIUM 01/06/2020 1 2:00:00 AM EDT tablet 90 TAKE ONE TABLET BY MOUTH EVERY D AY TAKE ONE TABLET BY MOUTH EVERY DAY SOLD: 03/29/2020 [facility] atorvastatin 40 MG Oral Tablet atorvastatin (LIPITOR) 40 MG tablet atorvastatin (LIPITOR) 40 MG tablet 01/06/2020 12:00:00 AM EDT 40 mg Oral aborted Take 1 tablet (40 mg total) by mouth daily [facility] Dutasteride 0.5 MG Oral Capsule dutasteride (AVODART) 0.5 MG capsule dutasteride (AVODART) 0.5 MG capsule 08/11/2019 12:00:00 AM EST 0.5 mg Oral aborted Take 0.5 mg by mouth daily [facility] 0.5 mg 07/18/2019 12:00:00 AM EST capsule 30 TAKE ONE CAPSULE BY MOUTH EVERY DAY TAKE ONE CAPSULE BY MOUTH EVERY DAY SOLD: 05/10/2020 [facility] 5 mg 07/18/2019 12:00:00 AM EST tablet 60 TAKE ONE TABLET BY MOUTH TWICE A DAY TAKE ONE TABLET BY MOUTH TWICE A DAY SOLD: 03/19/2020 [facility] 0.5 mg 07/18/2019 12:00:00 AM EST capsule 30 TAKE ONE CAPSULE BY MOUTH EVERY DAY TAKE ONE CAPSULE BY MOUTH EVERY DAY SOLD: 03/12/2020 [facility] 5 mg 07/18/2019 12:00:00 AM EST tablet 60 TAKE ONE TABLET BY MOUTH TWICE A DAY TAKE ONE TABLET BY MOUTH TWICE A DAY SOLD: 05/21/2020 [facility] 0.5 mg 07/18/2019 12:00:00 AM EST capsule 30 TAKE ONE CAPSULE BY MOUTH EVERY DAY TAKE ONE CAPSULE BY MOUTH EVERY DAY SOLD: 04/09/2020 [facility] 0.5 mg 07/18/2019 12:00:00 AM EST capsule 30 TAKE ONE CAPSULE BY MOUTH EVERY DAY TAKE ONE CAPSULE BY MOUTH EVERY DAY SOLD: 06/07/2020 [facility] 5 mg 07/18/2019 12:00:00 AM EST tablet 60 TAKE ONE TABLET BY MOUTH TWICE A DAY TAKE ONE TABLET BY MOUTH TWICE A DAY SOLD: 04/19/2020 [facility] 5 mg 07/18/2019 12:00:00 AM EST tablet 60 TAKE ONE TABLET BY MOUTH TWICE A DAY TAKE ONE TABLET BY MOUTH TWICE A DAY SOLD: 06/21/2020 [facility] 14 ACTUAT fluticasone furoate 0.1 MG/ACT UAT / vilanterol 0.025 MG/ACTUAT Dry Powder Inhaler Fluticasone Furoate-Vilanterol (BREO ELLIPTA) 100-25 MCG/INH INHALER Fluticasone Furoate-Vilanterol (BREO ELLIPTA) 100-25 M CG/INH INHALER 02/27/2019 12:00:00 AM EDT aborted BREO ELLIPTA 100-25 MCG/INH AEPB [facility] 30 ACTUAT fluticasone furoate 0.2 MG/ACT UAT / vilanterol 0.025 MG/ACTUAT Dry Powder Inhaler [Breo] Breo Ellipta 200-25MCG/INH Inhalation Aerosol Powder Breath Activated Breo Ellipta 200-25MCG/INH Inhalation Ae rosol Powder Breath Activated 12/20/2018 12:00:00 AM EDT 1 aborted 30 ACTUAT fluticasone furoate 0.2 MG/ACTUAT / vilanterol 0.025 MG/ACTUAT Dry Powder Inhaler [Breo] [facility] [place] Insurance Providers Payer name Policy type / Coverage type Policy ID Covered libertarian ID Covered libertarian's relationship to guerra Policy Guerra Plan Information AET[employer] MEDICARE [id number] SP MEBDS DVS Medicare Medicare Primary [id number] Self [id number] Medicare Part A of [place] Other 0 [id number] Self 0 MEDICARE [id number] SP [id number] A Medicare Medicare Primary [id number] Self [id number] MEDICARE [id number] Alethea [id number] MEDICARE [id number] SP [id number] MEDICARE [id number] xxxxxxxxxxx [id number] Medicare Medicare Primary [id number] Self [id number] Medicare Part [place] of [place] Other 0 [id number] Self 0 Medicare [place] Other 0 [id number] Self 0 Medicare [place] Other 0 [id number] Self 0 Medicare Medicare Primary [id number] Self [id number] Medicare Part [place] of [place] Other 0 [id number] Self 0 Medicare [place] Other 0 [id number] Self 0 MEDICARE [id number] Alethea [id number] A Medicare Part [place] Other 0 [id number] Self 0 Medicare [place] Other 0 [id number] Self 0 Medicare [place] Other 0 [id number] Self 0 Medicare [place] Other 0 [id number] Self 0 MEDICARE [id number] SP [id number] A Medicare Medicare Primary [id number] Self [id number] MEDICARE A [id number] Self [id number] A Medicare Part A of [place] Other 0 [id number] Self 0 Medicare Medigap Part B [id number] Self [id number] Medicare Medicare Primary [id number] Self [id number] Medicare Medicare Primary [id number] Self [id number] [facility] MEDICARE [id number] SP [id number] [facility] MEDICARE [id number] Alethea [id number] [facility] MEDICARE [id number] Alethea [id number] [facility] MEDICARE [id number] SP [id number] [employer] [id number] Self [id number] [employer] [id number] Self [id number] [employer] [id number] Self [id number] [employer] MEDICARE [id number] Alethea [id number] [employer] [id number] Self [id number] [employer] [id number] Self [id number] [employer] [id number] [id number] Self [id number] [employer] [id number] Self [id number] [employer] Supplemental Plan Medigap Part B [id number] Self [id number] [employer] Supplemental Plan Medigap Part B [id number] Self 3 [id number] [employer] Supplemental Plan Medigap Part B [id number] Self 3 [id number] [employer] Secondary [id number] [employer] Supplemental Plan Medigap Part B [id number] Self 3 [id number] [employer] Supplemental Plan Medigap Part B [id number] Self 3 [id number] [employer] Supplemental Plan Medigap Part B [id number] Self 3 [id number] AARP U [id number] Self [id number] [facility] [id number] Alethea [id number] MEDICARE [id number] Alethea [id number] X67 MEDICARE [id number] [employer] Supplemental Plan Medigap Part B [id number] Self [id number] [facility] [id number] [employer] OPT[employer] [id number] SP [id number] [employer] OPTIONS [id number] SP [id number] [facility] [id number] Alethea [id number] [facility] [id number] xxxxxxxxxxx [id number] Medicare Primary [id number] Medicare C [id number] SELF [id number] X67 DME Jurisdiction A NHIC C [id number] SELF [id number] MEDICARE [id number] SP [id number] A [employer] OPTIONS [id number] SP [id number] SELF PAY [employer] OPT[employer] [id number] SP [id number] MEDICARE [id number] SP [id number] SELF PAY MEDICARE [id number] SP [id number] A INSURANCE COVID-19 COVID Alethea C OVID [employer] [id number] SP [id number] MEDICARE [id number] SP [id number] SELF PAY MEDICARE COMPLETE [id number] SP [id number] MEDICARE COMPLETE [id number] SP [id number] [employer] [id number] SP [id number] Medicare Part A of [facility] Omnipro Other 0 [id number] Self 0 [employer] [id number] Commercial Insurance [id number] [employer] [id number] Self [id number] [employer] [id number] Self [id number] [employer] MEDICARE [id number] Alethea [id number] [employer] MEDICARE PI PI [employer] [id number] SP [id number] [place] PROG TODAYS OPT [id number] SP [id number] [employer] Commercial [id number] Self UNITED HEALTHCARE O [id number] S [id number] UNITED HEALTHCARE O UNAVAILABLE S UNAVAILABLE AETNA MEDICARE O MEBDSDVS S MEBDS DVS MEDICARE SADA M [id number] S [id number] O MEBDSDVS MEBDSDVS [facility] PI PI MEDICARE PI PI AARP HEALTHCARE OPTIONS [id number] SP [id number] MEDICARE [id number] SP [id number] A Medicare Part B of [facility] Other 0 [id number] Self 0 [employer] OPTIONS [facility] [id number] SP [id number] MEDICARE [id number] SP [id number] A Medicare [facility] [id number] 18 [id number] AAR [id number] 18 [id number] Medicare Part A of [facility] Omnipro Other 0 [id number] Self 0 Medicare Part A of [facility] Omnipro Other 0 [id number] Self 0 Medicare Part A of [facility] Omnipro Other 0 [id number] Self 0 SELF PAY ONLY [id number] SP [id number] Problems, Conditions, and Diagnoses Code Display Name Description Problem Type Effective Dates Data Source(s) 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 Occlusion and stenosis of bilateral gary Diagnosis 03/17/2021 07:59:02 AM EDT [facility] 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 longterm (current) use of anticoagulant Diagnosis 03/17/2021 07:59:02 AM EDT [facility] I82.4Z9 Acute embolism and thrombosi s of unspecified deep veins of unspecified distal lower extremity Acute embolism and thrombosis of unspeci Diagnosis 03/17/2021 07:59:02 AM EDT [facility] I63.9 Cerebral infarction, unspecified Cerebral infarc tion, unspecified Diagnosis 03/17/2021 07:59:02 AM EDT [facility] I34.0 Nonrheumatic mitral (valve) insufficienc y Nonrheumatic mitral (valve) insufficienc Diagnosis 03/17/2021 07:59:02 AM EDT [facility] I42.9 Cardiomyopathy, unspecified Cardiomyopathy, unspecifie d Diagnosis 03/17/2021 07:59:02 AM EDT [facility] E78.2 Mixed hyperlipidemia Mixed hyperlipidemia Diagnosis 03/17/2021 07:59:02 AM EDT [facility] Z98.61 Coronary angioplasty status Coronary angioplasty statu s Diagnosis 03/17/2021 07:59:02 AM EDT [facility] I25.10 Atherosclerotic heart diseas e of [place] coronary artery without angina pectoris Atherosclerotic heart disease of [place] Diagnosis 03/17/2021 07:59:02 AM EDT [facility] I48.20 Chronic atrial fibrillation, unspecified Chronic atrial fibrillation, unspecified Diagnosis 03/17/2021 07:59:02 AM EDT [facility] I47.2 Ventricular tachycardia Ventricular tachycardia Diagno sis 03/17/2021 07:59:02 AM EDT [facility] 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 Chronic combined systolic (congestive) a Diagnosis 03/17/2021 07:59:02 AM EDT [facility] I48.19 Other persistent atrial fibrillation Oth er persistent atrial fibrillation Diagnosis 12/17/2020 04:50:00 PM EDT [facility] K56.609 Unspecified intestinal obstr uction, unspecified as to partial versus complete obstruction Unspecified intestinal obstruction, unsp Diagnosis 12/17/2020 04:50:00 PM EDT [facility] I50.32 Chronic diastolic (congestive) heart emely lure Chronic diastolic (congestive) heart emely Diagnosis 12/17/2020 04:50:00 PM EDT [facility] R06.02 Shortness of breath Shortness of breath Diagnosis 0 10/07/2020 08:45:16 AM EDT [facility] I10 Essential (primary) hypertension Essential (primary) h ypertension Diagnosis 10/07/2020 08:45:16 AM EDT [facility] I48.0 Paroxysmal atrial fibrillation Paroxysmal atrial fibri llation Diagnosis 10/07/2020 08:45:16 AM EDT [facility] I50.32 Chronic heart failure with preserved eje ction fraction Chronic heart failure with preserved ejection fraction [id number] 12/20/2020 12:00:00 AM EDT [facility] I48.19 Persistent atrial fibrillation Persistent atrial fibri llation [id number] 12/20/2020 12:00:00 AM EDT [facility] E78.5 HLD (hyperlipidemia) HLD (hyperlipidemia) [id number] 12/19/2020 12:00:00 AM EDT [facility] N40.1 Benign prostatic hyperplasia with lower urinary tract symptoms Benign prostatic hyperplasia with lower urinary tract symptoms [id number] 12/19/2020 12:00:00 AM EDT [facility] I48.20 Chronic atrial fibrillation Chronic atrial fibrillatio n [id number] 12/19/2020 12:00:00 AM EDT [facility] K56.609 SBO (small bowel obstruction) SBO (small bowel obstruc tion) [id number] 12/18/2020 12:00:00 AM EDT [facility] 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 10/18/2020 11:20:00 AM EDT [facility] ([facility]) 13099 Amyloidosis Amyloidosis Problem 10/18/2020 11:20:00 AM EDT [facility] ([facility]) 28657 Amyloidosis Amyloidosis Problem 10/18/2020 11:20:00 AM EDT [facility] ([facility]) 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 [id number] 10/14/2020 12:00:00 AM EDT [facility] Surgeries/Procedures Procedure Description Date Indications Data Source(s) Summary provided electronically in CCDA format & reasonable certainty of receipt 04/26/2021 12:00:00 AM EDT - 04/26/2021 12:00:00 AM EDT [facility] ([facility]) Clinical summary provided to patient 12:00:00 AM EDT - 04/26/2021 12:00:00 AM EDT [facility] ([facility]) Clinical summary provided to patient 12:00:00 AM EDT - 04/26/2021 12:00:00 AM EDT [facility] ([facility]) medical regimen review 04/26/2021 12:00: 00 AM EDT - 04/26/2021 12:00:00 AM EDT [facility] ([facility]) Transition in care medication list update 04/26/2021 12:00:00 AM EDT - 04/26/2021 12:00:00 AM EDT [facility] ([facility]) continue current medication except where otherwise noted 04/26/2021 12:00:00 AM EDT - 04/26/2021 12:00:00 AM EDT [facility] ([facility]) ROSEMARY POST-VOIDING RESIDUAL URINE&/BLDR CAP 01/25/2021 12:00:00 AM EDT [facility] ([facility]) OFFICE OUTPATIENT VISIT 25 MINUTES 01/25/2021 12:00:00 AM EDT [facility] ([facility]) Summary provided electronically in CCDA format & reasonable certainty of receipt 12/30/2020 12:00:00 AM EDT - 12/30/2020 12:00:00 AM EDT [facility] ([facility]) Clinical summary provided to patient 12:00:00 AM EDT - 12/30/2020 12:00:00 AM EDT [facility] ([facility]) Clinical summary provided to patient 12:00:00 AM EDT - 12/30/2020 12:00:00 AM EDT [facility] ([facility]) medical regimen review 12/30/2020 12:00: 00 AM EDT - 12/30/2020 12:00:00 AM EDT [facility] ([facility]) continue current medication except where otherwise noted 12/30/2020 12:00:00 AM EDT - 12/30/2020 12:00:00 AM EDT [facility] ([facility]) ECHO TRANSTHORC R-T 2D W/WO M-MODE REC F-UP/LMTD <td>E CHOCARDIOGRAM TRANSTHORACIC LIMITED</td><td>Routine</td><td>12/20/2020 11:17 AM EDT</td><td></td><td> </td> 12/20/2020 11:17:11 AM EDT [facility] BLOOD COUNT COMPLETE AUTOMATED <td>CBC</td><td>Timed</ td><td>12/20/2020 7:29 AM EDT</td><td></td><td> </td> 12/20/2020 07:29:00 AM EDT [facility] POTASSIUM SERUM PLASMA/WHOLE BLOOD <td>POTASSIUM</td><td>Routine</td><td>12/20/2020 7:29 AM EDT</td><td></td><td> </td> 12/20/2020 07:29:00 AM EDT [facility] ECG ROUTINE ECG W/LEAST 12 LDS TRCG ONLY W/O I&R <td>E CG 12- LEAD</td><td>STAT</td><td>12/20/2020 2:18 AM EDT</td><td></td><td></td> 12/20/2020 02:18:42 AM EDT [facility] TROPONIN QUANTITATIVE <td>TROPONIN I</td><td>STAT< /td><td>12/20/2020 2:15 AM EDT</td><td></td><td> </td> 12/20/2020 02:15:00 AM EDT [facility] THROMBOPLASTIN TIME PARTIAL PLASMA/WHOLE BLOOD <td>APTT</td><td>STAT</td><td>12/20/2020 2:15 AM EDT</td><td></td><td> </td> 12/20/2020 02:15:00 AM EDT [facility] PHOSPHORUS INORGANIC <td>PHOSPHORUS</td><td>Add-O n</td><td>12/20/2020 2:15 AM EDT</td><td></td><td> </td> 12/20/2020 02:15:00 AM EDT [facility] MAGNESIUM <td>MAGNESIUM</td><td>Add-On </td><td>12/20/2020 2:15 AM EDT</td><td></td><td> </td> 12/20/2020 02:15:00 AM EDT [facility] BASIC METABOLIC PANEL CALCIUM TOTAL <td>BASIC METABOLI C PANEL</td><td>STAT</td><td>12/20/2020 2:15 AM EDT</td><td></td><td> </td> 12/20/2020 02:15:00 AM EDT [facility] THROMBOPLASTIN TIME PARTIAL PLASMA/WHOLE BLOOD <td>APTT</td><td>STAT</td><td>12/19/2020 8:05 PM EDT</td><td></td><td> </td> 12/19/2020 08:05:00 PM EDT [facility] THROMBOPLASTIN TIME PARTIAL PLASMA/WHOLE BLOOD <td>APTT</td><td>Routine</td><td>12/19/2020 1:53 PM EDT</td><td></td><td> </td> 12/19/2020 01:53:00 PM EDT [facility] TROPONIN QUANTITATIVE <td>TROPONIN I</td><td>Routi ne</td><td>12/19/2020 11:39 AM EDT</td><td></td><td> </td> 12/19/2020 11:39:00 AM EDT [facility] BLOOD COUNT COMPLETE AUTOMATED <td>CBC</td><td>Routine </td><td>12/18/2020 6:48 AM EDT</td><td></td><td> </td> 12/18/2020 06:48:00 AM EDT [facility] BASIC METABOLIC PANEL CALCIUM TOTAL <td>BASIC METABOLI C PANEL</td><td>Routine</td><td>12/18/2020 6:48 AM EDT</td><td></td><td> </td> 12/18/2020 06:48:00 AM EDT [facility] COVID/FLU AB/RSV PCR <td>COVID/FLU AB/RSV PCR</td ><td>STAT</td><td>12/17/2020 11:41 PM EDT</td><td></td><td> </td> 12/17/2020 11:41:00 PM EDT [facility] TROPONIN QUANTITATIVE <td>POCT TROPONIN</td><td>Ro utine</td><td>12/17/2020 10:49 PM EDT</td><td></td><td> </td> 12/17/2020 10:49:00 PM EDT [facility] XR CHEST PORTABLE <td>XR CHEST PORTABLE</td><t d>STAT</td><td>12/17/2020 9:29 PM EDT</td><td></td><td> </td> 12/17/2020 09:29:01 PM EDT [facility] URINE CULTURE HOLD SPECIMEN <td>URINE CULTURE HOLD SPECIMEN</td><td>STAT</td><td>12/17/2020 8:58 PM EDT</td><td></td><td> </td> 12/17/2020 08:58:00 PM EDT [facility] URNLS DIP STICK/TABLET RGNT AUTO W/O MICROSCOPY <td>UR INALYSIS W/O MICRO</td><td>STAT</td><td>12/17/2020 8:58 PM EDT</td><td></td><td> </td> 12/17/2020 08:58:00 PM EDT [facility] CT ABDOEN & PELVIS W/CONTRAST MATERIAL <td>CT ABDOMEN PELVIS W CONTRAST</td><td>Routine</td><td>12/17/2020 8:38 PM EDT</td><td></td><td> </td> 12/17/2020 08:38:16 PM EDT [facility] TROPONIN QUANTITATIVE <td>TROPONIN I</td><td>STAT< /td><td>12/17/2020 5:44 PM EDT</td><td></td><td> </td> 12/17/2020 05:44:00 PM EDT [facility] THROMBOPLASTIN TIME PARTIAL PLASMA/WHOLE BLOOD <td>APTT</td><td>STAT</td><td>12/17/2020 5:44 PM EDT</td><td></td><td> </td> 12/17/2020 05:44:00 PM EDT [facility] PROTHROMBIN TIME <td>PROTIME-INR</td><td>STAT </td><td>12/17/2020 5:44 PM EDT</td><td></td><td> </td> 12/17/2020 05:44:00 PM EDT [facility] BLOOD COUNT COMPLETE AUTO&AUTO DIFRNTL WBC COUNT <td>C BC AND DIFFERENTIAL</td><td>STAT</td><td>12/17/2020 5:44 PM EDT</td><td></td><td> </td> 12/17/2020 05:44:00 PM EDT [facility] LIPASE <td>LIPASE</td><td>STAT</td> <td>12/17/2020 5:44 PM EDT</td><td></td><td> </td> 12/17/2020 05:44:00 PM EDT [facility] LACTATE <td>LACTIC ACID</td><td>STAT </td><td>12/17/2020 5:44 PM EDT</td><td></td><td> </td> 12/17/2020 05:44:00 PM EDT [facility] COMPREHENSIVE METABOLIC PANEL <td>COMPREHENSIVE METABO LIC PANEL</td><td>STAT</td><td>12/17/2020 5:44 PM EDT</td><td></td><td> </td> 12/17/2020 05:44:00 PM EDT [facility] XR CHEST PORTABLE <td>XR CHEST PORTABLE</td><t d>STAT</td><td>12/17/2020 5:16 PM EDT</td><td></td><td> </td> 12/17/2020 05:16:54 PM EDT [facility] ECG ROUTINE ECG W/LEAST 12 LDS W/I&R <td>ECG 12- LEAD</td><td>Routine</td><td>12/17/2020 5:08 PM EDT</td><td></td><td> </td> 12/17/2020 05:08:58 PM EDT [facility] Summary provided electronically in CCDA format & reasonable certainty of receipt 12/03/2020 12:00:00 AM EDT - 12/03/2020 12:00:00 AM EDT [facility] ([facility]) Transition in care medication list update 12/03/2020 12:00:00 AM EDT - 12/03/2020 12:00:00 AM EDT [facility] ([facility]) Immunization Administration (includes Percutaneous, In hvac mechanic Immunization Administration (includes Percutaneous, Intrader 08/20/2020 12:00:00 AM EST [facility] ([facility]) Moderna COVID-19 Vaccine Moderna COVID-19 Vaccine 08/20/2020 12:00: 00 AM EST [facility] ([facility]) Moderna COVID-19 Vaccine Moderna COVID-19 Vaccine 07/23/2020 12:00: 00 AM EST [facility] ([facility]) Moderna COVID19 Vaccine Administration First Dose Mode rna COVID19 Vaccine Administration First Dose 07/23/2020 12:00:00 AM EST [facility]ZYNA Y ([facility]) RHC/FQHC code for distant site telehealt h services (Synchronous telemedicine service rendered via real-time interactive audio and video telecommunication system, [employer]) RHC/FQHC code for distant site telehealt h services (Synchronous telemedicine service rendered via real-time interactive audio and video telecommunication system, [employer]) 05/20/2020 12:00:00 AM EST [facility] ([facility]) Results ID Date Data Source [id number] 01/25/2021 01:25:00 PM EDT [facility] ([facility]) Name Value Range Interpretation Code Description Data Cathy rce(s) Supporting Document(s) Protein [Presence] in Urine by Test strip Laboratory test result [facility] ([facility]) Glucose [Presence] in Urine Laboratory test result [facility] ([facility]) Ua Leuko Laboratory test result [facility] ([facility]) Blood [Presence] in Urine by Visual Laboratory test result [facility] ([facility]) Ua Nitrite Laboratory test result [facility] ([facility]) Ketones [Presence] in Urine by Test strip Laboratory test result [facility] ([facility]) Color of Urine Laboratory test result [facility] ([facility]) Clarity of Urine Laboratory test result [facility] ([facility]) Ua Specific [place] 1.015 1.003-1.030 [facility] ([facility]) pH of Urine by Test strip 6.5 5.0-7.5 [facility] ([facility]) Urobilinogen [Mass/volume] in Urine by Test strip 0.2 E.U./dL 0.0-1.0 [facility] ([facility]) Bilirubin.total [Presence] in Urine by Test strip Laboratory test res ult [facility] ([facility]) ID Date Data Source [id number] 01/21/2021 08:10:00 AM EDT [facility] ([facility]) Name Value Range Interpretation Code Description Data Cathy rce(s) Supporting Document(s) Prostate specific Ag [Mass/volume] in Serum or Plasma 43.07 ng/mL 0.0 6-4.00 [facility] ([facility]) Do not interpret PSA results as absolute [...] for the PSA is determined using the [employer] System that utilizes a direct chemiluminometric technology. The result is not interchangeble with different assay methods. ID Date Data Source [id number] 01/21/2021 01:48:00 PM EDT [facility] Name Value Range Interpretation Code Description Data Cathy rce(s) Supporting Document(s) PROSTATE SPECIFIC ANTIGEN 43.07 NG/ML 0.06-4.[address] [facility] Do not interpret PSA results as absolut e evidence of the presence or absence of [...] for the PSA is determined using the [employer] System that utilizes a direct chemiluminometric technology. The result is not interchangeble with different assay methods. ID Date Data Source [id number] 12/24/2020 08:41:02 AM EDT [facility] INFORMATIONPatient MRN Name Date of Age Gend*PT [id number] Jacky Newby 1935 85 years M IPPT Location Admission Date/Time Visit ID Attending [id number] 12/17/20 1650 --- --- EPI ID CSN Admitting Provider [id number] Osmel Mckeon MD([id number]) Attestation signed by Osmel Mckeon MD at 12/24/2020 8:40 AMSignature: ISIS Albertate: December 24, 2020Time: 8:40 AM --Surgical Services Discharge SummaryJacky Newby date: 12/17/2020ttending Physician: Noemi Albert Procedures: * Surgery not found *Indication for Admission: Partial SBO vs enteritisHospital Course & C omplications: see admitting H&P for full circumstancesregarding admission. Pt presented to the [facility] ED from Urgent care on 12/17/2020with acute abdominal pain associated with nausea. He underwent CT scan whichshowed fluid filled loops of small bowel concerning for partial SBO. He did nothave an acute surgical abdomen so was admitted to Dr. Mckeon's service forconservative management. He was placed on bowel rest with IV fluids. He had anNGT placed for decompression but he removed it later in the day. It was left outas pt was feeling better and was no longer nauseated. On 12/19 the patient wasmuch improved, his bowels were functioning and he was having no pain. He wasstarted on full liquids and diet was advanced as tolerated to regular diet. Itwas noted later in the evening on 12/19 that patient had mildly elevatedtroponin (0.14) in the ED and had a new RBBB on EKG. Cardiology was consultedand they agreed to see him in the morning. An echo was done as well as repeatEKG, serial troponins were monitored. His troponin began to decrease andcardiology saw the patient. It was deemed no further cardiac workup wasnecessary and mild troponin increase was likely related to demand ischemia. Asof 12/20 pt was tolerating regular diet without nausea or pain. He was deemedfit for discharge home by Dr. Mckeon. 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.Medications:Your medication listCONTINUE taking these medications Instructions Last Dose Given Morning Afternoon Evening Bedtime As NeededApixaban 5 MG Tabs tabletCommonly known as: Eliquis Take 1 tablet (5 mg total) by mouth 2 (two) times a day12/20/20dutasteride 0.5 MG capsuleCommonly known as: AVODART Take 0.5 mg by mouth daily12/21/20furosemide 80 MG tabletCommonly known as: LASIX Take 1 tablet (80 mg total) by mouth 2 (two) times a day12/20/20spironolactone 25 MG tabletCommonly known as: ALDACTONE Take 1 tablet (25 mg total) by mouth daily12/21/20Tylenol 8 Hour 650 MG CR tabletG eneric drug: acetaminophen Take 1,300 mg by mouth daily as needed for painDischarge Exam:No intake or output data in the 24 hours ending 12/23/20 1321See my note from 12/20 for discharge PE.Discharged Condition:goodCode status: Full CodeDisposition: Home or Self CareFollow Up: Discharge instructions were reviewed with patient. Follow up in theoffice as scheduled. He understands to call the office with any questions orconcerns. Discussed above discharge plan with attending, Dr. Mckeon.Signature: SHIKHA Saucedoate: December 23, 2020Time: 1:21 PM Name Value Range Interpretation Code Description Data Cathy rce(s) Supporting Document(s) ID Date Data Source [id number] 12/20/2020 03:19:57 PM EDT [facility]FORMATIONPatient MRN Name Date of Age Gend*PT [id number] Jacky Newby 1935 85 years M IPPT Location Admission Date/Time Visit ID Attending [id number] 12/17/20 1650 --- Osmel Mckeon MD([id number]) EPI ID CSN Admitting Provider [id number] Osmel Mckeon MD([id number])CARDIOLOGY CONSULTATIONName: Jacky Newby Gender: maleDate of : 1935 Age: 85 yearsDate/Time of Admit: 12/17/2020 4:50 PM Code Status: Full CodePrimary Care Provider / Referring Physician: ASTER HERNÁNDEZ MDInformant:HISTORYCHIEF COMPLAINT:Chief ComplaintPatient presents with Abdominal Pain Per EMS, "At 0900 started with sudden sharp abdominal pain. Went to Urgentcare, sent here." Denies N/V/DHPI:This patient is a 85 years male who was admitted to the hospital on December 17through the emergency department because of abdominal pain. The discomfort wasdiffuse and associated with nausea and constipation.Patient was small obstruction. He is conserved lady with im proved.He has a cardiac history and we were asked to see him for that reason.In 2014 he underwent stent placement in the LAD.In 2015, he underwent coronary arteriography and was found to have a patentstent in the LAD. There was additional nonobstructive CAD as determined byfractional flow reserve. There was normal left ventricular systolic function.He has been followed for nonsustained ventricular tachycardia, mitralinsufficiency, and tricuspid insufficiency. He also has diagnoses of pulmonaryhypertension and abdominal aortic aneurysm. He also has a history of persistentatrial fibrillation.His p rehospital meds include Eliquis, furosemide 80 mg twice a day, andspironolactone 25 mg daily.His lab studies reveal a potassium of 3.7 and a creatinine of 0.86. The GFR isgreater than 60. He has a persistently abnormal troponin level consistent withchronic myocardial injury, typically seen with heart failure. His hemoglobin is12.1. An N-terminal proBNP in October of this year was 4322.A transthoracic echo today demonstrates normal left ventricular chamber size,function, and wall motion. There is diastolic dysfunction with elevated LApressure and the PASP is 32. The LA is dilated and there is mild mitralregurgitation.He is asymptomatic.PAST HISTORYPMH:Past Medical History:Diagnosis Date Arthritis Blind left eye BPH (benign prostatic hyperplasia) CAD s/p PTCA / stent to LAD 08/201408/20/2014 CARDIAC : TRANSTHORACIC ECHOCARDIOGRAM 10/14/2020 Ejection fraction 65%. Study consistent with senile amyloidosis with markedlythickened right and left ventricular rao. Moderate biatrial enlargement.Mild aortic and mitral valve fibrocalcific degenerative changes. Mild tomoderate mitral valve insufficiency. Trace tricuspid valve insufficiency withnormal pulmonary artery pressure. CARDIAC CATHETERIZATION 09/17/2014 [facility], EF 70%, RCA 30% stenosis proximally, 50% mid RCA, left circumflex 30%stenosis first marginal, LAD ostial proximal 90% dilated and stented withbare-metal stent, 70% first diagonal, mid LAD 50 and 30% stenosis CARDIAC CATHETERIZATION 10/29/2015 EF 50% stable nonhemodynamically significant disease in LAD by fractional flowreserve, 20% RCA CARDIAC: AAA (abdominal aortic aneurysm) 05/12/2014 3.5 cm infrarenal abdominal aortic aneurysm with wall thrombus CARDIAC: CAROTID ULTRASOUND 08/28/2019 Is a 50% stenosis bilateral internal carotid arteries CARDIAC: HOLTER MONITOR 09/02/2018 Atrial fibrillation, average heart rate 81 bpm, longest R to R interval 2.7seconds, occasional ectopics versus aberrant conduction. No change in medicalmanagement. CARDIAC: REGADENOSON NUCLEAR STRESS TEST 03/06/2019 EF 28% negative for ischemia, EF appears normal and not below number recorded. CARDIAC: TRANSESOPHAGEAL ECHOCARDIOGRAM 05/14/2014 EF 40-45%, anterior wall hypokinesis, moderate LVH.'s of intra-atrial shuntingby agitated saline. No thrombus. Mild to moderate MR, mild calcific plaques inaorta. CARDIAC: TRANSTHORACIC ECHOCARDIOGRAM 09/03/2017 EF 60-65% severe concentric LVH, POSSIBLE CHARACTERISTICS OF SENILEAMYLOIDOSIS, moderate MR CARDIAC: VASCULAR SCREEN 08/22/2016 NAKUL normal bilaterally, positive femoral plaque, normal mid abdominal aorta,internal carotid arteries less than 50% stenosis bilaterally CARDIAC:ABDOMINAL ULTRASOUND 06/16/2015 Stable appearing 3.5 cm distal abdominal aortic aneurysm CARDIAC:ATRIAL FIBRILLATION 08/19/2014 Identified in office Cerebrovascular accident (CVA) Identified before anticoagulation was started for PAF Chest x-ray PA and lateral 04/13/2020 No evidence of acute disease and no evidence of congestive heart failure CHF (congestive heart failure) 01/22/2017 CT brain 05/10/2014 Generalized cerebral atrophy. Chronic appearing encephalomalacia. Cerebellum CT chest 01/22/2017 Mild cardiac enlargement, aortic tortuosity and vascular calcification. Noevidence of pulmonary edema. Stable tiny pulmonary nodules. No acute disease. 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 Scan requested for staging.Treated with chemotherapy March 2017 History of CVA (cerebrovascular accident) RMCA CVA - 05/11/2014 History of persistent cough followed by DR. Abhishek HORTA (hyperlipidemia) Hypertension MRA neck 05/11/2014 No stenosis, vessel occlusion or dissection MRA of brain 2013 MRA head no hemodynamically significant stenosis, major vessel occlusion orintracranial aneurysm seen MRI brain 05/11/2014 Small acute infarct involving the right frontal lobe and right inferior lobe,chronic bilateral cerebellar hemorrhage right Non Hodgkin's lymphoma NSVT (nonsustained ventricular tachycardia) PAF (paroxysmal atrial fibrillation) Pulmonary consult 11/30/2015 No evidence of chronic obstructive airway disease. Discussed possibility ofsleep apnea though patient refused evaluation/treatment. No further follow-up. Pulmonary hypertension Stroke Urology consult/gross hematuria 12/15/2015 BPH, prosthetic nodule, Flomax initiated. PATIENT REFUSED FURTHER WORK-UP ANDPROSTATE NODULE VHD (valvular heart disease) MR, TR and AIPSH:Past Surgical History:Procedure Laterality Date ANKLE SURGERY CARDIAC CATHETERIZATION 10/29/2015 Stable non-hemodynamically significant ACD in LAD, Mild LV systolic dysfunction- CARPAL TUNNEL RELEASE Bilateral CATARACT EXTRACTION Blind in left eye. CORONARY ANGIOPLASTY WITH STENT PLACEMENT 08/30/2014 Critical ostial LAD stenosis s/p BMS, Residual moderate disease in the mid LAD,RCA and diagonal, Normal LV systolic fn, FRACTURE SURGERY Right 1957 Leg, multiple throughout leg FRACTURE SURGERY Right 2008 Compound fx of femur HERNIA REPAIR LYMPH NODE BIOPSY Right 02/09/2017 Procedure: EXCISIONAL BIOPSY OF RIGHT INGUINAL LYMPH NODE, LYMPH NODE PROTOCAL;Surgeon: Jose Carlos Naidu MD; Laterality: Right; PROSTATE SURGERY N/A 10/02/2017 Procedure: CYSTOSCOPPY, PROSTATIC URETHRAL LIFT; Surgeon: MD Chetan; Laterality: N/A; TOTAL KNEE ARTHROPLASTY BilateralFH:Family HistoryProblem Relation Age of Onset Cerebrovascular Accident (CVA) Mother Alcohol abuse Father Cerebrovascular Accident (CVA) Brother Lung cancer Paternal Uncle smoker Throat cancer Other smokerPSH:Social HistorySocial History Narrative Not on fileSocial HistorySocioeconomic History Marital status: Spouse name: Not on file Number of children: Not on file Years of education: Not on file Highest education level: Not on fileOccupational History Not on fileTobacco Use Smoking status: Former Smoker Packs/day: 1.00 Years: 37.00 Pack years: 37.00 Quit date: 1969 Years since quittin.4 Smokeless tobacco: Never UsedSubstance and Sexual Activity Alcohol use: Yes Comment: Occasional beer Drug use: No Sexual activity: Not on fileOther Topics Concern Bike Helmet Not Asked History of Breast Feeding Not Asked Self-Exams Not Asked Caffeine Concern Not Asked Hobby Hazards Not Asked Sleep Concern Not Asked Daily Calcium Supplement Not Asked Lead Exposure Not Asked Special Diet Not Asked Daily Vitamin D Supplement Not Asked Service Not Asked Stress Concern Not Asked Domestic Violence in home Not Asked Radon exposure Not Asked Weight Concern Not Asked Exercise Not Asked Seat Belt Not Asked Well water Not Asked Firearms in home Not AskedSocial History Narrative Not on fileSocial Determinants of HealthFinancial Resource Strain: Difficulty of Paying Living Expenses:Food Insecurity: Worried About Running Out of Food in the Last Year: Ran Out of Food in the Last Year:Transportation Needs: Lack of Transportation (Medical): Lack of Transportation (Non-Medical):Physical Activity: Days of Exercise per Week: Minutes of Exercise per Session:Stress: Feeling of Stress :Social Connections: Frequency of Communication with Friends and Family: Frequency of Social Gatherings with Friends and Family: Attends Rastafari Services: Active Member of Clubs or Organizations: Attends Club or Organization Meetings: Marital Status:Intimate Partner Violence: Fear of Current or Ex-Partner: Emotionally Abused: Physically Abused: Sexually Abused:Review of SystemsConstitutional: No fevers, chills, weight loss or night sweats..Eyes: No blindness, double vision, or glaucomaRespiratory: negative for asthma, chronic bronchitis, hemoptysis, pleurisy,sputum production, or wheezingCardiovascular: negative for claudication and as stated in the HPIGastrointestinal: negative for constipation, diarrhea, melena, nausea, orvomitingNeurological: negative for dizziness, gait problems, headaches and seizuresHematologic/lymphatic: negative for easy bruising, petechiae, or anemiaBehavioral/Psych: negative for anxiety and depressionEndocrine: negative for polydipsia, polyphagia and polyuria and temperatureintoleranceAllergic/Immunologic: No seasonal allergiesMEDICATIONS AND ALLERGIESALLERGIES/SENSITIVITIES:AllergiesAllergen Reactions Morphine And Related Nausea Only Other Itching Certain bubble baths/soaps Dabigatran Etexilate Mesylate Other (See Comments) HeartburnMEDS:Medications Prior to AdmissionMedication Sig Dispense Refill Last Dose acetaminophen (TYLENOL 8 HOUR) 650 MG CR tablet Take 1,300 mg by mouth dailyas needed for pain Past Week at Unknown time Apixaban (ELIQUIS) 5 MG TABS tablet Take 1 tablet (5 mg total) by mouth 2(two) times a day 180 tablet 3 12/17/2020 at Unknown time dutasteride (AVODART) 0.5 MG capsule Take 0.5 mg by mouth daily 12/17/2020 atUnknown time furosemide (LASIX) 80 MG tablet Take 1 tablet (80 mg total) by mouth 2 (two)times a day 180 tablet 3 12/17/2020 at Unknown time spironolactone (ALDACTONE) 25 MG tablet Take 1 tablet (25 mg total) by mouthdaily 90 tablet 3 12/17/2020 at Unknown timePhysicalVITAL SIGNS:Blood Pressure: BP: 125/66 Pulse: Heart Rate: 66Temperature: Temp: 98.3 F Respirations: Resp: 16Admission Weight: Weight: 81.6 kg (180 lb) O2 Saturation: SpO2: 98 %Today's Weight: Weight: 81.6 kg (180 lb)PHYSICAL EXAMINATION:GENERAL: Well developed, well nourished man in no acute distress and oriented toperson place and time. There is normal affect and thought process.HEENT: No arcus, xanthelasma, or scleral icterus. Nasal and oral mucosa pink.Tongue well-papillated.NECK: JVP normal. Carotids brisk. No lymphadeno meryl.LUNGS: Resonant and clearCARDIAC: PMI normal S1 normal S2 physiologically split. No gallops. Grade 2short ejection systolic murmur. No rubs.ABDOMEN: Soft and nontender without hepatosplenomegaly. Bowel sounds are normal.PULSES: Pedal pulses are not palpableEXTREMITIES: Trace to 1+ ankle edema. No clubbing. No cyanosis. Skin warm andwell perfused. No venous stasis.MUSCULOSKELETAL: No deformities, good muscle tone, normal range of motionNEUROLOGICAL: No major sensory or motor deficits.DiagnosticsLABS:BMP:Lab ResultsComponent Value Date NA 137 12/20/2020 K 3.7 12/20/2020 CL 102 12/20/2020 CO2 31 12/20/2020 ANIONGAP 4 (L) 12/20/2020 CALCIUM 8.3 (L) 12/20/2020 GLU 89 12/20/2020 BUN 14 12/20/2020 CREATININE 0.86 12/20/2020 CREATININE 1.1 04/21/2019 GFRAA >60 12/20/2020 GFRNONAA >60 12/20/2020BC with Diff:Lab ResultsComponent Value Date WBC 5.1 12/20/2020 RBC 3.75 (L) 12/20/2020 HGB 12.1 (L) 12/20/2020 HCT 35.6 (L) 12/20/2020 MCV 94.9 12/20/2020 MCH 32.2 (H) 12/20/2020 MCHC 34.0 12/20/2020 RDW 14.3 12/20/2020 PLT 134 (L) 12/20/2020 MPV 9.6 12/20/2020 LYMPHOPCT 7.1 (L) 12/17/2020 MONOPCT 3.5 12/17/2020 EOSPCT 0.0 12/17/2020 BASOPCT 0.2 12/17/2020 NEUTROABS 7.5 12/17/2020 MONOABS 0.3 12/17/2020 BASOSABS 0.0 12/17/2020BC without Diff:Lab ResultsComponent Value Date WBC 5.1 12/20/2020 RBC 3.75 (L) 12/20/2020 HGB 12.1 (L) 12/20/2020 HCT 35.6 (L) 12/20/2020 MCV 94.9 12/20/2020 M CH 32.2 (H) 12/20/2020 MCHC 34.0 12/20/2020 RDW 14.3 12/20/2020 PLT 134 (L) 12/20/2020 MPV 9.6 12/20/2020MP:Lab ResultsComponent Value Date NA 137 12/20/2020 K 3.7 12/20/2020 CL 102 12/20/2020 CO2 31 12/20/2020 ANIONGAP 4 (L) 12/20/2020 BUN 14 12/20/2020 CREATININE 0.86 12/20/2020 CREATININE 1.1 04/21/2019 BCR 16.3 12/20/2020 GLU 89 12/20/2020 CALCIUM 8.3 (L) 12/20/2020 PROT 6.9 10/07/2020 ALBUMIN 4.1 12/17/2020 GLOB 4.3 12/17/2020 AGRC 1.0 12/17/2020 ALKPHOS 110 12/17/2020 LABBILI 0.8 12/17/2020 AST 33 12/17/2020 ALT 22 12/17/2020 GFRAA >60 12/20/2020 GFRNONAA >60 12/20/2020oags:Lab ResultsComponent Value Date PROTIME 11.0 12/17/2020 INR 1.05 12/17/2020 APTT 69.6 (H) 12/20/2020-Dimer:Lab ResultsComponent Value Date DDAT 0.33 01/24/2017 LACTATE 2.6 (H) 12/17/2020NT Pro- BNP :Results for orders placed or performed during the hospital encounter of 08/19/14B-type natriuretic peptideResult Value Ref Range B natriuretic peptide 33 0 - 100 pg/mLB-type natriuretic peptideResult Value Ref Range B natriuretic peptide 76 0 - 100 pg/mLDIAGNOSTICS:IMAGING: Chest film reveals pulmonary venous redistribution and probableinterstitial pulmonary edema.ECG: Electrocardiogram demonstrates atrial fibrillation rate 62 with rightbundle branch block a nonspecific IVCD.A tracing on December 17 demonstrated atrial flutter rate 74 with right bundlebranch block and left posterior fascicular block.ConclusionsImpressions:1. Persistent atrial fibrillation with controlled ventricular rate2. Compensated chronic systolic heart failureCAD with previous PCI4. SBORecommendations:1. Continue his prehospital meds2. Remote cardiac perspective he may discharge homeThank you for this consultation.Ankit Vanessa, MDDate: December 20, 2020Time: 2:51 PM Name Value Range Interpretation Code Description Data Cathy rce(s) Supporting Document(s) ID Date Data Source [id number] 12/20/2020 11:27:07 AM EDT [facility] Name Value Range Interpretation Code Description Data Cathy rce(s) Supporting Document(s) &PDF [facility] LBWRTj5cZgVXKuJu88/NLPksOSKcc7QrVUbxAQl1NWivFZKiK1XlhSnlTKdUZ4XSUSeFDQxHKM9SOWFH 0b3 [file] ICAgICAgICAgICAgICAgICAgICAgICAgICAgICAgICAgICAgICAgICAgICAgICAgICAgICAgICAgICAg ICAgICAgICAgICAgICANCiAgICAgICAgICAgICAgICAgICAgICAgICAgICAgICAgICAgICAgICAgICAg ICAgICAgICAgICAgICAgICAgICAgICAgICAgICAgIC AgICAgICAgICAgICAgICAgICAgICAgICANCiAgICAgICAgICAgICAgICAgICAgICAgICAgICAgICAgIC AgICAgICAgICAgICAgICAgICAgICAgICAgICAgICAgICAgICAgICAgICAgICAgICAgICAgICAgICAgIC AgICAgICANCiAgICAgICAgICAgICAgICAgICAgICAg ICAgICAgICAgICAgICAgICAgICAgICAgICAgICAgICAgICAgICAgICAgICAgICAgICAgICAgICAgICAg ICAgICAgICAgICAgICAgICANCiAgICAgICAgICAgICAgICAgICAgICAgICAgICAgICAgICAgICAgICAg ICAgICAgICAgICAgICAgICAgICAgICAgICAgICAgIC AgICAgICAgICAgICAgICAgICAgICAgICAgICANCiAgICAgICAgICAgICAgICAgICAgICAgICAgICAgIC AgICAgICAgICAgICAgICAgICAgICAgICAgICAgICAgICAgICAgICAgICAgICAgICAgICAgICAgICAgIC AgICAgICAgICANCiAgICAgICAgICAgICAgICAgICAg ICAgICAgICAgICAgICAgICAgICAgICAgICAgICAgICAgICAgICAgICAgICAgICAgICAgICAgICAgICAg ICAgICAgICAgICAgICAgICAgICANCiAgICAgICAgICAgICAgICAgICAgICAgICAgICAgICAgICAgICAg ICAgICAgICAgICAgICAgICAgICAgICAgICAgICAgIC AgICAgICAgICAgICAgICAgICAgICAgICAgICAgICANCiAgICAgICAgICAgICAgICAgICAgICAgICAgIC AgICAgICAgICAgICAgICAgICAgICAgICAgICAgICAgICAgICAgICAgICAgICAgICAgICAgICAgICAgIC AgICAgICAgICAgICANCiAgICAgICAgICAgICAgICAg ICAgICAgICAgICAgICAgICAgICAgICAgICAgICAgICAgICAgICAgICAgICAgICAgICAgICAgICAgICAg ICAgICAgICAgICAgICAgICAgICAgICANCjw/oWKfH1ggqJMojuH7P0hyAb7GKq3CXL8qh2EsFYQuOXpw qsOcJgkFRbZyPPJxDscJWyf4DUrmTJ8JrZClT7SiW9 NkRGvvXC5XYRPlOBRwvWVcSDWmPWXmIyE3FKPbIUqmTV0ZdEMvFDsnXQVtSTJxKgUeYEVeRL4GISVgI6 85qrKsXd9ACg7WFrMaJG9urr5FTehqKLXqXepWMdt0NQpdBZ0AcUAkU5DtwMIsd3kAVjHuU2OQBNW8DD PpRf5AFKJdQbHjOBAlDVsjJZ3wVKJyAUFOkAcukxS4 QH8YRE4pxsWqYV1OUrNbXp4aJe3SEzJbL2IhL0FzNQYvWCYQLQxnHI5UGILwAAB5GEHiZnVvPZNUEmLq G42fSG3AC4Cra14mUkE8KNRbVvHiNHbuGD40iJctfkXpgQDysTrwIW1DPg7+DQplbmRvYmoNCnhyZWYN KwXbYpdQHgBwQADdHYPnDEVzYyV5JwVsWh1JXQXqTL XeBSPhUqJmYFOgVNUnQUaqDYBuALEbIKN3GDQuSTJuFN0HTyWcUFRxPbIeRwWfGMUdYAQaqr6IVSSvRB HeJJT3YUHkBPZoNDGvNOldRDYhYTPwDyb2HLGaJSJcUI1MQhXfFTSjRAG5UARbUNTzYGOlrp2IZBHxIV MsQPW4RRMrZJQwKMXmRRpxROMjMJI7USY8JEMjNGXh CB4WDhWeWKRzALJ8QKRtIJGiNZBavq3MQQJgHLCuYcrcVCVcLTQsCNFhNDxpGGEcOJH6LKwmKQWqIYNn EF8HPpGnGYInLEz8JZZfILVvOTPche0NJPZhKZYcRYI2IeStRVYzONIxBUruBJRfJOZ6DqVnBROpCVUi CA1ZVcBvUIFkBTtlIItsOYGrZZUnzz1MDXJhLUKfPX X3NAHvOFXgUAPpMPsaXNYcTAZ3USeuDUAqILQmAQ5VQkFkHXHiNNQ6XocaEDZbGTRqdr9HUTAnTGIoJE bgFsDiDDQzCAXbQNzuKGMlDGAqFFWtLERzAJSnNQ3ZLuLwHYRrHUFoNJEzQJWnWVXniy5HIRZeQHKwYL P5NxMaHOMvUISbIUdjIBYwIRPmCEakLDLjEXNvBS8K YfBvKRXpMqObEvStZTNkUODlse3IPGLnHOVyPtv6DITuQUZdMQYuXSnvXMDuFNN8SvJ5PWXoPXZyRN6K QqDlXOCvYuD9QpHuCTXkDUSwag0OIUCsSLBiNWd1YCIoXWXpLUWvCCfoAIEaGFU3YvX5HANnICZsUB4J AgAeHEHcNah4ZmByRNXhGOCyla3HWWAwDYK0OUGfQR IyPIWjQTAyEYojTVWeVUS6WFCaKHUaWLAaGD0XWlRhKFJjZDO6KgLrDSVsOCAjth7YZCSlFKD1AIcjTW VbIALdLXIqWTejQLTgSNM9JRZ4QZCmRYMqNP8SOxGnZRVuZkZlIPShBVDoFCZbfg2LCGZmKPR9FhyrSU KnTRDxKDRiWYwyBLTlLNA0JGX6ESAdWFRiYL8SQdXz UCdeAGSCIws2VBieY3u0WTBsDH9OZ1Xnu6VtAkwkTNQJDOkbXT9owuOoSDHfMl2NW1qCJuoiFdp2OiJx KXC4SiU8PNXaJSX8WXJcOxEjUNB9PfL9Qx4tRLUxXGS6WlRtNQG5YNgnCJFoMkanG8AyUKUkOJuhFPw1 JwVlYU4ALv7KFzC3SWF3eAVfYn8AWzAvRDNMFpMvAK9HFGs= ID Date Data Source [id number] 12/20/2020 10:01:47 AM EDT [facility] Name Value Range Interpretation Code Description Data Cathy rce(s) Supporting Document(s) POTASSIUM 3.7 mmol/L (3.6-5.2) [facility] ID Date Data Source [id number] 12/20/2020 09:54:57 AM EDT [facility] Name Value Range Interpretation Code Description Data Cathy rce(s) Supporting Document(s) WBC 5.1 10*3/uL (4.1-11.0) [facility] RBC 3.75 10*6/uL (4.60-6.10) L [facility] HGB 12.1 g/dL (13.5-18.0) L [facility] HCT 35.6 % (41.0-53.0) L [facility] MCV 94.9 fL (80.0-95.0) [facility] MCH 32.2 pg (27.0-32.0) H [facility] MCHC 34.0 g/dL (32.0-36.0) [facility] RDW 14.3 % (10.5-14.5) [facility] PLT 134 10*3/uL (150-450) L [facility] MPV 9.6 fL (7.1-10.7) [facility] ID Date Data Source [id number] 12/20/2020 06:17:36 AM EDT [facility] Name Value Range Interpretation Code Description Data Cathy rce(s) Supporting Document(s) [facility] HRKKVn6nBgMKVuGge8RzBePpTSQoRK4bwzo9P2Q4fEKeV0RjfTOjr4zzW5IbP1VzWRMkUYVVOY5ZeQRu jb2 [file] oiXkM44V5LCs7H7/HPz7wLu6pUI7Ry7DGc9Qd+L+HERNANDEZ+pK0ms1pyjz+91rnUda/jf06qBq59Zy2MOC8i9 xB7EzG9htWGiCHlD75j7vPh+2h0fE/fz53gEywB/0v Qahba94m2s40/kFoWgTe6Qv8cka/RCer/y3zawsAarZxFab2IKpmFs7SPz/Lapve876/dE4HlTk8azcs UH2mA9QS0BfxletthA4f7tkw+dT64JKBr5A7z3QunIgbu5LnDK0xkJ/NURSES AIDE/sZ+73WM+/9N12qfbr50r71 [file] xOVcRdwM23D6bdgdGEDXwoDbsvePCkW8CG4PkF/credit historian [file] Ub3ooFK1JPRmLmfPOu2Va2MlcvI0njSpPnM5PSD7FeLkYM5G ID Date Data Source [id number] 12/20/2020 03:58:08 AM EDT [facility] Name Value Range Interpretation Code Description Data Cathy rce(s) Supporting Document(s) MAGNESIUM 2.3 mg/dL (1.7-2.4) [facility] ID Date Data Source [id number] 12/20/2020 03:58:08 AM EDT [facility] Name Value Range Interpretation Code Description Data Cathy rce(s) Supporting Document(s) PHOSPHORUS 2.2 mg/dL (2.5-4.5) L [facility] ID Date Data Source [id number] 12/20/2020 03:43:28 AM EDT [facility] Name Value Range Interpretation Code Description Data Cathy rce(s) Supporting Document(s) APTT 69.6 s (22.0-34.3) H [facility] ID Date Data Source [id number] 12/20/2020 03:30:31 AM EDT [facility] Name Value Range Interpretation Code Description Data Cathy rce(s) Supporting Document(s) TROPONIN I 0.11 ng/mL (<0.05) H [facility] Less than 0.05: Myocardial injury unlike lyGreater than or equal to 0.05: Highly suggestive of myocardial injuryCorrelation with rise and/or fall ofserial troponins, clinical symptomsand ECG changes is necessary. ID Date Data Source [id number] 12/20/2020 03:25:46 AM EDT [facility] Name Value Range Interpretation Code Description Data Cathy rce(s) Supporting Document(s) SODIUM 137 mmol/L (136-145) [facility] POTASSIUM 3.3 mmol/L (3.6-5.2) L [facility] CHLORIDE 102 mmol/L (100-108) [facility] CO2 31 mmol/L (22-31) [facility] ANION GAP 4 mmol/L (7-16) L [facility] UREA NITROGEN 14 mg/dL (7-24) [facility] CREATININE 0.86 mg/dL (0.80-1.30) [facility] BUN/CREAT RATIO 16.3 RATIO (10.0-20.0) [facility] GLUCOSE 89 mg/dL (70-99) [facility] CALCIUM 8.3 mg/dL (8.4-10.2) L [facility] GFR >60 ml/min/1.73m2 (>59) [facility] GFR ( AMER) >60 ml/min/1.73m2 (>59) [facility] GFR INTERPRETATION [facility] --NORMAL KIDNEY FUNCTION OR MILD DISEASE - GFR >OR= 60CHRONIC KIDNEY DISEASE - GFR 15 - 59RENAL FAILURE - GFR <15 Est. GFR calculation based on the MDRDstudy equation, which assumes a steadystate for creatinine. Est. GFR should notbe used for medication dosing. ID Date Data Source [id number] 12/19/2020 09:01:42 PM EDT [facility] Name Value Range Interpretation Code Description Data Cathy rce(s) Supporting Document(s) APTT 75.7 s (22.0-34.3) H [facility] ID Date Data Source [id number] 12/19/2020 03:39:07 PM EDT [facility] Name Value Range Interpretation Code Description Data Cathy rce(s) Supporting Document(s) APTT 28.2 s (22.0-34.3) [facility] ID Date Data Source [id number] 12/19/2020 12:57:45 PM EDT [facility] Name Value Range Interpretation Code Description Data Cathy rce(s) Supporting Document(s) TROPONIN I 0.14 ng/mL (<0.05) H [facility] Less than 0.05: Myocardial injury unlike lyGreater than or equal to 0.05: Highly suggestive of myocardial injuryCorrelation with rise and/or fall ofserial troponins, clinical symptomsand ECG changes is necessary. ID Date Data Source [id number] 12/18/2020 02:20:43 PM EDT [facility] NT INFORMATIONPatient MRN Name Date of Age Gend*PT [id number] Jacky Newby 1935 85 years M IPPT Location Admission Date/Time Visit ID Attending [id number] 12/17/20 1650 --- Osmel Mckeon MD([id number]) EPI ID CSN Admitting Provider [id number] Osmel Mckeon MD([id number]) Attestation signed by Osmel Mckeon MD at 12/18/2020 2:20 PMI saw and evaluated the patient and reviewed PA's note. I agree with thehistory, physical and medical decision making with the following additions,exceptions, and/or observations:See my note.Signature: Osmel Mckeon MDDate: December 18, 2020Time: 2:20 PM --Surgical Services History&PhysicalLawrdavida Newby 1935 85 years12/17/2020 PCP: ASTER HERNÁNDEZ MDInformant: Jacky Newby, Reliable Yes; [facility] anish nHPI: Jacky Newby is a 85 years old White or male who initiallypresented to an Urgent Care clinic earlier today, 12/17/20, with complaints ofacute abdominal pain. He was noted to have a firm abdomen and was referred tot ER for further eval and treatment. The patient states his pain started at9am this morning with associated nausea. He denies any previous similar symptomsand no history of prior abdominal surgeries. He is on Eliquis for A-fib.PMH:Past Medical History:Diagnosis Date Arthritis Blind left eye BPH (benign prostatic hyperplasia) CAD s/p PTCA / stent to LAD 08/201408/20/2014 CARDIAC : TRANSTHORACIC ECHOCARDIOGRAM 10/14/2020 Ejection fraction 65%. Study consistent with senile amyloidosis with markedlythickened right and left ventricular rao. Moderate biatrial enlargement.Mild aortic and mitral valve fibrocalcific degenerative changes. Mild tomoderate mitral valve insufficiency. Trace tricuspid valve insufficiency withnormal pulmonary artery pressure. CARDIAC CATHETERIZATION 09/17/2014 SJ H, EF 70%, RCA 30% stenosis proximally, 50% mid RCA, left circumflex 30%stenosis first marginal, LAD ostial proximal 90% dilated and stented withbare-metal stent, 70% first diagonal, mid LAD 50 and 30% stenosis CARDIAC CATHETERIZATION 10/29/2015 EF 50% stable nonhemodynamically significant disease in LAD by fractional flowreserve, 20% RCA CARDIAC: AAA (abdominal aortic aneurysm) 05/12/2014 3.5 cm infrarenal abdominal aortic aneurysm with wall thrombus CARDIAC: CAROTID ULTRASOUND 08/28/2019 Is a 50% stenosis bilateral internal carotid arteries CARDIAC: HOLTER MONITOR 09/02/2018 Atrial fibrillation, average heart rate 81 bpm, longest R to R interval 2.7seconds, occasional ectopics versus aberrant conduction. No change in medicalmanagement. CARDIAC: REGADENOSON NUCLEAR STRESS TEST 03/06/2019 EF 28% negative for ischemia, EF appears normal and not below number recorded. CARDIAC: TRANSESOPHAGEAL ECHOCARDIOGRAM 05/14/2014 EF 40-45%, anterior wall hypokinesis, moderate LVH.'s of intra-atrial shuntingby agitated saline. No thrombus. Mild to moderate MR, mild calcific plaques inaorta. CARDIAC: TRANSTHORACIC ECHOCARDIOGRAM 09/03/2017 EF 60-65% severe concentric LVH, POSSIBLE CHARACTERISTICS OF SENILEAMYLOIDOSIS, moderate MR CARDIAC: VASCULAR SCREEN 08/22/2016 NAKUL normal bilaterally, positive femoral plaque, normal mid abdominal aorta,internal carotid arteries less than 50% stenosis bilaterally CARDIAC:ABDOMINAL ULTRASOUND 06/16/2015 Stable appearing 3.5 cm distal abdom inal aortic aneurysm CARDIAC:ATRIAL FIBRILLATION 08/19/2014 Identified in office Cerebrovascular accident (CVA) Identified before anticoagulation was started for PAF Chest x-ray PA and lateral 04/13/2020 No evidence of acute disease and no evidence of congestive heart failure CHF (congestive heart failure) 01/22/2017 CT brain 05/10/2014 Generalized cerebral atrophy. Chronic appearing encephalomalacia. Cerebellum CT chest 01/22/2017 Mild cardiac enlargement, aortic tortuosity and vascular calcification. Noevidence of pulmonary edema. Stable tiny pulmonary nodules. No acute disease. 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 Scan requested for staging.Treated with chemotherapy March 2017 History of CVA (cerebrovascular accident) RMCA CVA - 05/11/2014 History of persistent cough followed by DR. Weiss HLLuis Enrique (hyperlipidemia) Hypertension MRA neck 05/11/2014 No stenosis, vessel occlusion or dissection MRA of brain 2013 MRA head no hemodynamically significant stenosis, major vessel occlusion orintracranial aneurysm seen MRI brain 05/11/2014 Small acute infarct involving the right frontal lobe and right inferior lobe,chronic bilateral cerebellar hemorrhage right Non Hodgkin's lymphoma NSVT (nonsustained ventricular tachycardia) PAF (paroxysmal atrial fibrillation) Pulmonary consult 11/30/2015 No evidence of chronic obstructive airway disease. Discussed possibility ofsleep apnea though patient refused evaluation/treatment. No further follow-up. Pulmonary hypertension Stroke Urology consult/gross hematuria 12/15/2015 BPH, prosthetic nodule, Flomax initiated. PATIENT REFUSED FURTHER WORK-UP ANDPROSTATE NODULE VHD (valvular heart disease) MR, TR and AIPSH:Past Surgical History:Procedure Laterality Date ANKLE SURGERY CARDIAC CATHETERIZATION 10/29/2015 Stable non-hemodynamically significant ACD in LAD, Mild LV systolic dysfunction- CARPAL TUNNEL RELEASE Bilateral CATARACT EXTRACTION Blind in left eye. CORONARY ANGIOPLASTY WITH STENT PLACEMENT 08/30/2014 Critical ostial LAD stenosis s/p BMS, Residual moderate disease in the mid LAD,RCA and diagonal, Normal LV systolic fn, FRACTURE SURGERY Right 1958 Leg, multiple throughout leg FRACTURE SURGERY Right 2008 Compound fx of femur HERNIA REPAIR LYMPH NODE BIOPSY Right 02/09/2017 Procedure: EXCISIONAL BIOPSY OF RIGHT INGUINAL LYMPH NODE, LYMPH NODE PROTOCAL;Surgeon: Jose Carlos Naidu MD; Laterality: Right; PROSTATE SURGERY N/A 10/02/2017 Procedure: CYSTOSCOPPY, PROSTATIC URETHRAL LIFT; Surgeon: MD Chetan; Laterality: N/A; TOTAL KNEE ARTHROPLASTY BilateralMEDICATIONS: Medication reconciliation will be completed separately. (Not in ahospital admission)ALLERGY:AllergiesAllergen Reactions Morphine And Related Nausea Only Other Itching Certain bubble baths/soaps Dabigatran Etexilate Mesylate Other (See Comments) HeartburnFH:Family HistoryProblem Relation Age of Onset Cerebrovascular Accident (CVA) Mother Alcohol abuse Father Cerebrovascular Accident (CVA) Brother Lung cancer Paternal Uncle smoker Throat cancer Other smokerSH:Social HistoryTobacco Use Smoking status: Former Smoker Packs/day: 1.00 Years: 37.00 Pack years: 37.00 Quit date: 1969 Years since quittin.4 Smokeless tobacco: Never UsedSubstance Use Topics Alcohol use: Yes Comment: Occasional beer Drug use: NoROS:Constitutional: Denies fever, chills, general malaise or recent weight change.HEENT: Denies recent visual or hearing changes.Respiratory: Denies cough, shortness of breath, wheezing, or hemoptysis.Cardiovascular: Denies chest pain or pressure, or palpitations.Gastrointestinal: see HPI. Abdominal pain and firmness, associated N/V. Denieschange in appetite or bowel habitsGenitourinary: Denies dysuria, hematuria or difficulty urinating.Extremities/Musculoskeletal: Denies current joint pain or muscle weakness.Neurological: Denies dizziness, seizures, speech difficulty, or h eadaches.Psychiatric: Denies anxiety or depression.Endocrine: Denies night sweats or temperature intolerance.Hematological: Denies unusual bruising or bleeding disorder.Integumentary: Denies current rashes or lesions.Allergic/Immunology: Denies current hives/itching.Physical Exam:BP 112/77 (BP Location: Left upper arm, Patient Position: Lying) | Pulse 73 |Temp 97.8 F (Oral) | Resp 16 | Ht 1.727 m (5' 8") | Wt 81.6 kg (180 lb) |SpO2 94% | BMI 27.37 kg/m General: Alert, conversing appropriately, and cooperative.Skin: Warm and dry. No rashes/lesions.Head: Atraumatic, normocephalic.Eyes: PERRL. Sclerae anicteric, conjunctivae clear bilaterally.Ears: Hearing grossly intact, external ears normal.Nose: NGT intact with mild epistaxis. Symmetric.Mouth: Dentition is fair, oropharynx without exudates or lesions.Neck: Supple, no lymphadenopathy.Heart: S1S2 regular rate and rhythm.Lungs: CTA bilaterally. Respiratory effort non-labored.Abdomen: Soft, non-distended, mild tenderness with palpation. Hypoactive bowelsounds. No incisions, scars, or hernias appreciated.Back: No CVA tenderness.Musculoskeletal: No muscle atrophy or weakness appreciated.Vascular/Ext: No calf tenderness or LE edema. Distal pulses intact.Neurologic: Cranial nerves grossly intact. No focal deficits appreciated.Rectal/breast exam: Deferred to PCP.Labs, Imaging and other Diagnostics:Cardiac:Lab ResultsComponent Value Date TROPONINI 0.05 (H) 12/17/2020 POCTROP 0.09 (H) 12/17/2020 PROBNP 4,322.6 (H) 10/14/2020BC with Diff:Lab ResultsComponent Value Date WBC 8.4 12/17/2020 RBC 5.09 12/17/2020 HGB 16.2 12/17/2020 HCT 48.0 12/17/2020 MCV 94.2 12/17/2020 MCH 31.9 12/17/2020 MCHC 33.8 12/17/2020 RDW 14.4 12/17/2020 PLT 179 12/17/2020 MPV 9.5 12/17/2020 LYMPHOPCT 7.1 (L) 12/17/2020 MONOPCT 3.5 12/17/2020 EOSPCT 0.0 12/17/2020 BASOPCT 0.2 12/17/2020 NEUTROABS 7.5 12/17/2020 MONOABS 0.3 12/17/2020 BASOSABS 0.0 12/17/2020MP:Lab ResultsComponent Value Date NA 139 12/17/2020 K 3.8 12/17/2020 CL 98 (L) 12/17/2020 CO2 36 (H) 12/17/2020 ANIONGAP 5 (L) 12/17/2020 BUN 26 (H) 12/17/2020 CREATININE 1.18 12/17/2020 CREATININE 1.1 04/21/2019 BCR 22.0 (H) 12/17/2020 GLU 142 (H) 12/17/2020 CALCIUM 9.8 12/17/2020 PROT 6.9 10/07/2020 ALBUMIN 4.1 12/17/2020 GLOB 4.3 12/17/2020 AGRC 1.0 12/17/2020 ALKPHOS 110 12/17/2020 LABBILI 0.8 12/17/2020 AST 33 12/17/2020 ALT 22 12/17/2020 GFRAA >60 12/17/2020 GFRNONAA 59 (L) 12/17/2020oags:Lab ResultsComponent Value Date PROTIME 11.0 12/17/2020 INR 1.05 12/17/2020 APTT 25.8 12/17/2020actate:Lab ResultsComponent Value Date LACTATE 2.6 (H) 12/07abs from today and [facility] portableFinal ResultIMPRESSION:Stable mildly increased interstitial markings in the right lung base.Tip of nasogastric tube located within the proximal stomach.Initial report created on 12/17/2020 10:00:42 PM EDT:PROCEDURE INFORMATION:Exam: XR ChestExam date and time: 12/17/2020 9:19 PMAge: 85 years oldClinical indication: Other: Ng tubeTECHNIQUE:Imaging protocol: XR of the chest.Views: 1 view.COMPARISON:CR XR CHEST PORTABLE 12/17/2020 4:55 PMFINDINGS:Tubes, catheters and devices: Cardiac leads superimposed over the chestbilaterally.Lungs: Stable mildly increased interstitial markings in the right lung base. Noalveolar infiltrate.Pleural spaces: No pleural fluid collection. No pneumothorax.Heart/Mediastinum: Normal heart size.Vasculature: Calcific thoracic aorta.Bones/joints: Old left rib fractures. Spinal degenerative changes.IMPRESSION:Stable mildly increased interstitial markings in the right lung base.Report electronically signed by: KATLIN BROWNING MD on 12/17/2020 22:02:33CT abdomen pelvis with IV contrastFinal ResultIMPRESSION:1. On coronal images 22-50, fluid-filled small bowel loops in the mid to rightabdomen measuring up to 2.8 cm in caliber - possible partial small bowelobstruction. Mild edema within the adjacent central mesentery.2. Small amount of free fluid in the anterolateral right upper quadrant.3. 7.5 x 7.6 cm enlarged prostate gland.4. Scattered colon diverticuli without evidence of diverticulitis.COMMENTS:Consistent with the [employer]'s Incidental FindingsCommittee white paper (J Am Hollie Radiol 2018): Any incidental renal lesion lessthan 1 cm or classified as too small to characterize, or any incidental cysticrenal lesion characterized as simple-appearing, is likely benign. No follow-upimaging is recommended for these lesions per consensus recommendations based onimaging criteria.Report electronically signed by: KATLIN BROWNING MD on 12/17/2020 21:57:59[facility] ResultAssessment and Plan:Active Problems: * No active hospital problems. *Principal Problem: Partial Small Bowel Obstruction Abdominal pain with N/V- Plan: The patient was seen and examined and his chart was reviewed. VS arestable. Temp 97.8 on admission. WBC count is normal at 8.4. CT scan shows"fluid-filled small bowel loops in the mid to right abdomen - possible partialsmall bowel obstruction." Will admit to surgery. Patient will be NPO on IVFs forbowel rest. Antiemetics and analgesic ordered. VTE prophylaxis ordered. Furtherplan for surgery in the AM per attending.The patient has been encouraged to contact appropriate medical staff with anyquestions or concerns he may have in the interim. I have discussed this patientwith loan documentation specialist Dr. Naidu. Further plan per the attending physician.DVT mechanical prophylaxisADOD: unknownCode status: PriorSignature: Craig Lam 110:12 PM Name Value Range Interpretation Code Description Data [facility](s) Supporting Document(s) ID Date Data Source [id number] 12/18/2020 07:47:50 AM EDT [facility] Name Value Range Interpretation Code Description Data [facility] Supporting Document(s) SODIUM 142 mmol/L (136-145) [facility] POTASSIUM 3.9 mmol/L (3.6-5.2) [facility] CHLORIDE 104 mmol/L (100-108) [facility] CO2 33 mmol/L (22-31) H [facility] ANION GAP 5 mmol/L (7-16) L [facility] UREA NITROGEN 23 mg/dL (7-24) [facility] CREATININE 1.09 mg/dL (0.80-1.30) [facility] BUN/CREAT RATIO 21.1 RATIO (10.0-20.0) H [facility] GLUCOSE 131 mg/dL (70-99) H [facility] CALCIUM 8.8 mg/dL (8.4-10.2) [facility] GFR >60 ml/min/1.73m2 (>59) [facility] GFR ( AMER) >60 ml/min/1.73m2 (>59) [facility] GFR INTERPRETATION [facility] --NORMAL KIDNEY FUNCTION OR MILD DISEASE - GFR >OR= 60CHRONIC KIDNEY DISEASE - GFR 15 - 59RENAL FAILURE - GFR <15 Est. GFR calculation based on the MDRDstudy equation, which assumes a steadystate for creatinine. Est. GFR should notbe used for medication dosing. ID Date Data Source [id number] 12/18/2020 07:11:52 AM EDT [facility] Name Value Range Interpretation Code Description Data Cathy rce(s) Supporting Document(s) WBC 8.4 10*3/uL (4.1-11.0) [facility] RBC 4.32 10*6/uL (4.60-6.10) L [facility] HGB 14.0 g/dL (13.5-18.0) [facility] HCT 41.0 % (41.0-53.0) [facility] MCV 94.8 fL (80.0-95.0) [facility] MCH 32.3 pg (27.0-32.0) H [facility] MCHC 34.1 g/dL (32.0-36.0) [facility] RDW 14.6 % (10.5-14.5) H [facility] PLT 150 10*3/uL (150-450) [facility] MPV 9.0 fL (7.1-10.7) [facility] ID Date Data Source [id number] 12/18/2020 06:35:00 AM EDT [facility] Name Value Range Interpretation Code Description Data Cathy rce(s) Supporting Document(s) [facility] PLXEEx0pAdRCPjObn1FlOeInITFbWS4feps1D4I1nJUsO5PilCTfn1ocU0LaX2WcCAEpQKNERA6PaRVp jb2 [file] Px/g89+f/3IS/9c///lf//yP//pf/rT6/PnX//armed security guard//Wqa8qsupN6+U/jqe///ut/+cfs+VP888+//9lJ [file] Ija19jnUJp0141M4f302oP5q2r6d68k1g+Z9Nu+zeZ /N+6d0k8i6nAjFehtlj5+2+7q5c8r8nEbZgraq6HnTBoz69kLSLr751MDTet22lHBbjn8c3RbnknIiCC 3B98Sxf/1hNpvtRdN49kI6l/YEU7roGH0OyrDM0fsRH1EOdaKuGphK+mzWZ7M+m/OGyS8txSknr4xqsl jn0fjjVgu55fhH9d8035E9v314dJ2w1v9l36e4z281 5LaxazrEar5s43x5s9903ZspizfBjs1Dzseia0BcKzac8OsZOij83uSTIn660dPrzwVeNJ5A29B/13/O ClT/vVn+7/+c9adH/v3r9/T+vYse+Bo7i0VAo6SdzHD/7Yg8oEn41tSR/dbGln1wohiVoTvdy8PM90bs +udpl/yzr5R/d9wi4RANEiBXloLS1btyg7jGG/rknx siX/7Hfv//4j4nKm3pivfC+0b5G+cNXE/4dmqi97nIiyfQ/h6OnQQXvnlT0D1/fsByKng0V9jmtlp9rD og7f94Gi45xDA7hnrxY8XaG9O+vvut979m+XvzOBOOHB/qnkYnL3rbz68U6z8p0v/QuGL25Pftmq4J1o 9tveSfPe/mm08pAnf4mKSgrmgL7juPqP8P/+yW7f8j Ulr+/T/r+6NRXLNf/OdI60j2V9gO3h+ynhgoRG78h/ROapm52ggr77++OvM/G9e/J48Noith92W/9pOI /krP7HQtv2hE2kXpxp4plz0zr9knN9FIH/nnSr9spT/YFXbt+6Eu4JXwu/1duL/fgG3S9hT1P726eIen 0hBx3Oa7Is02RKefH/x/opwJ+8nbujAodJ0jV9MQPL +1bh/of3vx5KS6M/LLvr1H96M39g50KA2Q+djPf+lBd6w019/KArvAPmGfsC/YV/credit historian/Z6SrxJk4SxjM nzP4cVDms2PyFxMoR7Yf1+yLCjP/rtei9Tl1O+QE5zG4O6Nybp/3g87map8aON4RC5Te2+gore+VYQ/YMV /tr8f1/gp46kGv4D4Lk1Mpc7jI6/WMMkZ1fi0nM570 ovowh83nd8sv0gG+G/UarG050G/j+yB3+zi6z0fp/yX4NpYiLFF+FmzJrZt9LpOqlK/6JIDoqIzdoE3+ E9D8FLQdqpxVglZ++rPksac/u5A2SuFv7iexMQbwi204+C5wz0x5iqA0EYudxbxjG0FLNLmt+qzHbBl2 lG6nU5pXj3zQfU4Jl/2rI7/nvqR/xcO4s772TF43YY oqKR557l/AFjoYKp49sgJIH63xU2lh9azLX+u+nHWXLcPusDvsG/NYo6j4waQfCrs5Q5+G/rO8zvrkH1 etZcuwz/fcOQstqz+D6YPGPVWijNhgDrdZ2eH94Py0RLuZ5f+bd9gkqlPindNEJ+wD/+/tr6NR9dEly8 +fkBBTuC6IqRrbQ7KrsfdC2OesotF8iHyCf/VNGfU9 /lXJqzkdSf/qzCeS/fRP0w519D+uDPvE/dxLCdBw2DTfVGzh0U57f93nLrHsL87L4iH2xs+Wl5Xa8ZK2 6xTNMp2DCq4+n/7VlWFfsJ/52z7aFo71yhW/dWXYUV/4V6Loz/QyGD9d8x0r/Rn+lcC/EkN/Tv+qZIG9 /Ssp/7jG2iIA0Zz2hI8iM2uFkrfrXd6vB1JP6UBu7m b0r64M++vml540qodFixkU1qt25juzb8D+orj82vfVbfiiG+wO+1O1yj6skw310a00MEj8A4aG078gG/ f3+VtZogBG3LylR9hQUxj/iS94Xhjg/3eUg/f2fA730y/G/Q3Mz4H+lQ7RgmlfStlmWpkRZq4P0P9DTU 4OzM/H56sGNN+B8RsYv+nrHvvcjnBceh1K/3joqB0w qcP6s4OymoufR32OgWiKGrs6BvoSyvP+YFeUrzivPX/mLGEs/+esYGz5+Jonn/WLLz4+a4K8m+KsJ/mqO 5cMs2dnqLL5p6ej5WXdZHR1fxMqJ/LW5rnC50EM/MlDacGIXfIHkZWaGQnsC7j01E2a84v+riM2r9gz4 /71qYd42n813Q5rb7hlXl+Uhcw9SK7O9IUvOB/2rr+ Ru//SvrtztD/5qpn+P5k111Wg/Mr3nxs3Q1NyM/BOQftUtK205umzkon+jUY2dt7+ylH/2vL/GD4AqRI 4q+9lwoekvVkHUuY4VY21E+z+/+iavdRYcPrvC/quvZVslfxUl/25024yI5habe6gIjX6BH2ghvLuqx9 iGoytvnjpuu3px1wNQXvWhW6id/Rbupk2L8e/fuXp+ rvzh69i9PxighsOqnYk5CUnGsaT3rsv/eW+Ix7ofzpv8t2k+RubeR67P8kW1xHBcUD66pm3BThfeDx1m hl642rvuXwBLC/oR7WIoevg+41SkG1L/kzDgSohfFm4stb+a5V+v3B4LyKLvj+H+Wfjl6jhpO/YF+4K9 +D2ciK8QG/zf8H+U4OYzPXyypCW6+M9iCpUo1Elvgn ntWREkuo8mq2DsCxyRm1bmxf12rnU/ynGX/KGAJfpSpdKocBX2Sp+V8m6+fSZ/leM9+lzroo7yR+wT5U wDb6QmpIox4k9hazvnE1romylr5e11bt0uf/xc/FXJsOP+ShepECtbp8dN9shvQH+yr3GxCT7PxV776L /A7g2e1Z1Gsw+v6coGLA1om2onQ3Bb/NUs/upnX+Cv AigpLndUczI248s0/b3lrj85dD9B3fM0vw2sV2kElpThmN3OczfoV/bA9aO+43vtsJK/Lqv9lVD7ciZ7 641Y6z0SONgQ1gV/E1MdvXquZgqE4qM44Cf1RYuV6y2dFq+1wF+t5K+u/YejZe2bfg1t8F5bYtVG+4Jd KPmU196c5o9ROuc8z66RybBI0Jw71Bc1/Z5JD7Ep6+ [file] RvYmoKeHJlZgogICAgIDAgICAgMjgKMDAwMDAwMDAw EWD5OMRjBNLhIXmlPJTeHOBzROHaARChNQEhYG0pRhYcEICbQIY3TFGsRWEwJYSyckSEQDNnINDxXFp0 SHGoQEWfDZJzAXjxNUEhTSGqYGLsTMW9EDK7PASdBeSsBKKhNUWeRKArTMLaDBLrytIVKWGtEWMiMTZ2 YVTnKABtFASsIDljKNDdACPyMTltITOuTGQbVW1aQs GwBELbIGNzULczZQTnBRYlbmQXBUWcYWOcJLBbSFWnFJCiTKBcEIjmMFNjMICtKFUoTFVbMYYrBF2dGi BqBHBjPZP3TFYcNPKgZYSxpoHZOUScWVMhTSg9CIZaSTJuMWEsGAieHVRjTDVaOMP7HQSiPTYzQM0oKs EqCYTjKFZ6NxRjELIaKFCfgjDIXXNyVUXhGZE7JgAq BCQhJSKpNKwhBILbQPUmYKinOIBiUWGeJF0dPfKzCDOoVTNsDVwiCEOlICHnziAIIYQbNCNnYKXhReLd EDHgAVNpSHbxPDDmENz5WJQ8EQNmYRRtEL6pKlTqSICiWQX0WGcmBLRyESZjptFSBBWeLNWgBJudYJSc LXLpTOAkWPygLNKjVBCjWPK5HWFnLTSrVW8nYvRwZQ WpAZN5HFdsZGNyOMJojnUNDVYvGBQ2COhnGDEnKYRuJCRxCZbcYKImKOs4CZI9OALiPEEiFR0gRrHgEY SyIUb2RqLtTXUzQDOurxMXETSzQBCmAPWlRHS2IQJuGDXrXGf0bqCsrCReAup2Lp5NeSofHWK0Cf2Qvl MeSWSyKHUUGf9Ly484RMLgNCOXAvy+TcvqpJMivEgzYBGOYCRyIKs5TaNxEL9L ID Date Data Source [id number] 12/18/2020 01:16:22 AM EDT [facility] Name Value Range Interpretation Code Description Data Cathy rce(s) Supporting Document(s) SPECIMEN DESCRIPTION [facility] INFLUENZA A (NEG) [facility] INFLUENZA B (NEG) [facility] RSV (NEG) [facility] COMMENT [facility] THE [place] FDA HAS MADE THIS TEST AVAILABL EUNDER AN EMERGENCY USE AUTHORIZATION(EUA) FOR THE DETECTION AND/OR DIAGNOSISOF THE VIRUS THAT CAUSES COVID-19.PERFORMED AT [address] [place] [id number] COVID19 RESULT (NDET) [facility] THIS ASSAY AMPLIFIES AND DETECTSTHE TARG ET RNA USING REAL-TIME PCR.TESTING PERFORMED ON CIVICOID GENEXPERTNEGATIVE 2019_NCOV RT-PCR RESULTS DONOT PRECLUDE 2019_NCOV INFECTION ANDSHOULD NOT BE USED THE SOLE BASISFOR PATIENT MANAGEMENT DECISIONS. FIRST TEST [facility] EMPLOYED IN HLTHCARE [facility] SYMPTOMATIC [facility] DATE OF SYMPT ONSET [facility] HOSPITALIZED [facility] ICU [facility] SET [facility] [place] [facility] ID Date Data Source [id number] 12/17/2020 11:41:00 PM EDT [facility] Name Value Range Interpretation Code Description Data Cathy rce(s) Supporting Document(s) SARS coronavirus 2 RNA [Presence] in Res piratory specimen by SEBASTIÁN with probe detection NOT DETECTED [facility] This lab was reported by [facility]. ID Date Data Source [id number] 12/17/2020 11:00:57 PM EDT [facility] Name Value Range Interpretation Code Description Data Cathy rce(s) Supporting Document(s) POC CTNI 0.09 ng/mL (0.01-0.07) H [facility] Less than 0.08: Myocardial injury unlike lyGreater than or equal to 0.08: Highlysuggestive of myocardial injuryCorrelation with rise and/or fall ofserial troponins, clinical symptoms,and ECG changes is necessary.PERFORMED BY [facility] ID Date Data Source [id number] 12/17/2020 10:32:39 PM EDT [facility] NT INFORMATIONPatient MRN Name Date of Age Gend*PT [id number] Jacky Newby 1935 85 years M EDPT Location Admission Date/Time Visit ID Attending [id number] 12/17/20 1650 --- Angel Henley DO([id number]) EPI ID CSN Admitting Provider [id number] ---Provider in Triage NotesNo notes on fileHistory of Present IllnessChief ComplaintPatient presents with Abdominal Pain Per EMS, "At 0900 started with sudden sharp abdominal pain. Went to Urgentcare, sent here." Denies N/V/DHPI Jacky Newby is a 85 years old male who reports acute onset at 0900this morning of diffuse abdominal pain, associated with nausea and constipation.No vomiting, diarrhea, or radiation of pain. No history of abdominal surgeries.He is on Eliquis for A-fib.He initially presented to an urgent care, and was referred to the ED for furtherevaluation.Pt. Later started having multiple episdes of non-bloody emesis despite receivingzofran.HistoryPast Medical History:Diagnosis Date Arthritis Blind left eye BPH (benign prostatic hyperplasia) CAD s/p PTCA / stent to LAD 08/201408/20/2014 CARDIAC : TRANSTHORACIC ECHOCARDIOGRAM 10/14/2020 Ejection fraction 65%. Study consistent with senile amyloidosis with markedlythickened right and left ventricular rao. Moderate biatrial enlargement.Mild aortic and mitral valve fibrocalcific degenerative changes. Mild tomoderate mitral valve insufficiency. Trace tricuspid valve insufficiency withnormal pulmonary artery pressure. CARDIAC CATHETERIZATION 09/17/2014 SJ H, EF 70%, RCA 30% stenosis proximally, 50% mid RCA, left circumflex 30%stenosis first marginal, LAD ostial proximal 90% dilated and stented withbare-metal stent, 70% first diagonal, mid LAD 50 and 30% stenosis CARDIAC CATHETERIZATION 10/29/2015 EF 50% stable nonhemodynamically significant disease in LAD by fractional flowreserve, 20% RCA CARDIAC: AAA (abdominal aortic aneurysm) 05/12/2014 3.5 cm infrarenal abdominal aortic aneurysm with wall thrombus CARDIAC: CAROTID ULTRASOUND 08/28/2019 Is a 50% stenosis bilateral internal carotid arteries CARDIAC: HOLTER MONITOR 09/02/2018 Atrial fibrillation, average heart rate 81 bpm, longest R to R interval 2.7seconds, occasional ectopics versus aberrant conduction. No change in medicalmanagement. CARDIAC: REGADENOSON NUCLEAR STRESS TEST 03/06/2019 EF 28% negative for ischemia, EF appears normal and not below number recorded. CARDIAC: TRANSESOPHAGEAL ECHOCARDIOGRAM 05/14/2014 EF 40-45%, anterior wall hypokinesis, moderate LVH.'s of intra-atrial shuntingby agitated saline. No thrombus. Mild to moderate MR, mild calcific plaques inaorta. CARDIAC: TRANSTHORACIC ECHOCARDIOGRAM 09/03/2017 EF 60-65% severe concentric LVH, POSSIBLE CHARACTERISTICS OF SENILEAMYLOIDOSIS, moderate MR CARDIAC: VASCULAR SCREEN 08/22/2016 NAKUL normal bilaterally, positive femoral plaque, normal mid abdominal aorta,internal carotid arteries less than 50% stenosis bilaterally CARDIAC:ABDOMINAL ULTRASOUND 06/16/2015 Stable appearing 3.5 cm distal abdominal aortic aneurysm CARDIAC:ATRIAL FIBRILLATION 08/19/2014 Identified in office Cerebrovascular accident (CVA) Identified before anticoagulation was started for PAF Chest x-ray PA and lateral 04/13/2020 No evidence of acute disease and no evidence of congestive heart failure CHF (congestive heart failure) 01/22/2017 CT brain 05/10/2014 Generalized cerebral atrophy. Chronic appearing encephalomalacia. Cerebellum CT chest 01/22/2017 Mild cardiac enlargement, aortic tortuosity and vascular calcification. Noevidence of pulmonary edema. Stable tiny pulmonary nodules. No acute disease. 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 Scan requested for staging.Treated with chemotherapy March 2017 History of CVA (cerebrovascular accident) RMCA CVA - 05/11/2014 History of persistent cough followed by DR. Abhishek HORTA (hyperlipidemia) Hypertension MRA neck 05/11/2014 No stenosis, vessel occlusion or dissection MRA of brain 2013 MRA head no hemodynamically significant stenosis, major vessel occlusion orintracranial aneurysm seen MRI brain 05/11/2014 Small acute infarct involving the right frontal lobe and right inferior lobe,chronic bilateral cerebellar hemorrhage right Non Hodgkin's lymphoma NSVT (nonsustained ventricular tachycardia) PAF (paroxysmal atrial fibrillation) Pulmonary consult 11/30/2015 No evidence of chronic obstructive airway disease. Discussed possibility ofsleep apnea though patient refused evaluation/treatment. No further follow-up. Pulmonary hypertension Stroke Urology consult/gross hematuria 12/15/2015 BPH, prosthetic nodule, Flomax initiated. PATIENT REFUSED FURTHER WORK-UP ANDPROSTATE NODULE VHD (valvular heart disease) MR, TR and AIPast Surgical History:Procedure Laterality Date ANKLE SURGERY CARDIAC CATHETERIZATION 10/29/2015 Stable non-hemodynamically significant ACD in LAD, Mild LV systolic dysfunction- CARPAL TUNNEL RELEASE Bilateral CATARACT EXTRACTION Blind in left eye. CORONARY ANGIOPLASTY WITH STENT PLACEMENT 08/30/2014 Critical ostial LAD stenosis s/p BMS, Residual moderate disease in the mid LAD,RCA and diagonal, Normal LV systolic fn, FRACTURE SURGERY Right 8 Leg, multiple throughout leg FRACTURE SURGERY Right 2008 Compound fx of femur HERNIA REPAIR LYMPH NODE BIOPSY Right 02/09/2017 Procedure: EXCISIONAL BIOPSY OF RIGHT INGUINAL LYMPH NODE, LYMPH NODE PROTOCAL;Surgeon: Jose Carlos Naidu MD; Laterality: Right; PROSTATE SURGERY N/A 10/02/2017 Procedure: CYSTOSCOPPY, PROSTATIC URETHRAL LIFT; Surgeon: MD Chetan; Laterality: N/A; TOTAL KNEE ARTHROPLASTY BilateralFamily HistoryProblem Relation Age of Onset Cerebrovascular Accident (CVA) Mother Alcohol abuse Father Cerebrovascular Accident (CVA) Brother Lung cancer Paternal Uncle smoker Throat cancer Other smokerSocial HistoryTobacco Use Smoking status: Former Smoker Packs/day: 1.00 Years: 37.00 Pack years: 37.00 Quit date: 1969 Years since quittin.4 Smokeless tobacco: Never UsedSubstance Use Topics Alcohol use: Yes Comment: Occasional beer Drug use: NoROSReview of SystemsConstitutional: Negative for fatigue and fever.HENT: Negative for congestion.Eyes: Negative for pain.Respiratory: Negative for cough and shortness of breath.Cardiovascular: Negative for chest pain.Gastrointestinal: Positive for abdominal pain, constipation and nausea. Negativefor vomiting.Genitourinary: Negative for dysuria.Musculoskeletal: Negative for back pain.Skin: Negative for rash.Neurological: Negative for headaches.Psychiatric/Behavioral: Negative for confusion.Physical ExamBP 121/73 (BP Location: Left upper arm, Patient Position: Lying) | Pulse 74 |Temp 97.8 F (Oral) | Resp 16 | Ht 68" | Wt 81.6 kg | SpO2 92% | BMI 27.37kg/m Physical ExamVitals and nursing note reviewed.Constitutional: General: He is not in acute distress.HENT: Head: Normocephalic.Eyes: Conjunctiva/sclera: Conjunctivae normal.Cardiovascular: Rate and Rhythm: Normal rate. Heart soun ds: Normal heart sounds.Pulmonary: Effort: Pulmonary effort is normal. No respiratory distress. Breath sounds: Normal breath sounds.Abdominal: Palpations: Abdomen is soft. Tenderness: There is generalized abdominal tenderness. There is no guardingor rebound.Musculoskeletal: General: No tenderness. Normal range of motion. Cervical back: Neck supple. Right lower leg: No edema. Left lower leg: No edema. Comments: No calf tendernessSkin: General: Skin is warm.Neurological: Mental Status: He is alert.Diagnostics:LAB RESULTS:Results for orders placed or performed during the hospital encounter of 12/17/20Lactic acidResult Value Ref Range Lactate 2.6 (H) 0.4 - 2.0 mmol/LIMAGING RESULTSChest portableFinal ResultCT abdomen pelvis with IV contrast (Results Pending)ED MEDSMedicationsMorphine Sulfate (PF) injection 4 mg (has no administration in time range)sodium chloride 0.9% (NS) bolus 500 mL (has no administration in time range)Morphine Sulfate (PF) injection 4 mg (4 mg Intravenous Given 12/17/201705)ondansetron (ZOFRAN) injection 4 mg (4 mg Intravenous Given 12/17/201705)ED CourseECG 12 leadDate/Time: 12/17/2020 5:11 PMPerformed by: Angel Henley, DOAuthorized by: Angel Henley, DOComments: A-flutter at 74 BPM with no acute ischemic changes, QTc 432, as interpretedby meMDMNumber of Diagnoses or Management OptionsDiagnosis management comments: Pt. To be admitted for SBO. RENDON placed with [id number] of gastric contents aspirated. Lactic acid 2.6. received gentle IVF dueto cardiac history. Mild trop elevation, which is likely due to ischemic demand.No acute ischemic changes on ekg.Amount and/or Complexity of Data ReviewedClinical lab tests: reviewedTests in the radiology section of CPT : reviewedPatient initially treated for pain with morphine 4 mg IV, Zofran 4 m g IV. NS 500mL IV bolus ordered.Second reevaluation, patient's pain initially improved, though has now returned.Additional morphine 4 mg IV ordered.Diagnosis:SBOPlan: Admit to general surgeryNew Prescriptions No medications on fileI scribed for Angel Henley DO, signed by BROOKS Haddad on 1at 1702The documentation recorded by the scribe accurately reflects the service Ipersonally performed, and the decisions made by me.ED MD AttestationAttestation of Scribe Documentation: I personally performed the servicesdescribed in the documentation, reviewed the documentation recorded by thescribe in my presence and it accurately and completely records my words andactions.Angel Henley DO 10:31 PMChrGinny Singleton Name Value Range Interpretation Code Description Data Cathy rce(s) Supporting Document(s) ID Date Data Source [id number] 12/17/2020 10:02:33 PM EDT [address] [address]Syzpdhr Name: Jacky NewbyASIA: [id number]: MOrdering Provider: ANGEL Molina Prov: ANGEL Thomas Provider: Procedure Performed: XR CHEST PORTABLEExam Date: 12/17/2020 21:19MRN: [id number] Number: [id number] Class: created by Katlin Browning MD on 12/17/2020 10:02:33 PM EDT:Report should have read: FINDINGS: Tubes, catheters and devices: Cardiac leads superimposed over the chest bilaterally. Tip of nasogastric tube located within the proximal stomach.Lungs: Stable mildly increased interstitial markings in the right lung base. No alveolar infiltrate. Pleural spaces: No pleural fluid collection. No pneumothorax. Heart/Mediastinum: Normal heart size. Vasculature: Calcific thoracic aorta. Bones/joints: Old left rib fractures. Spinal degenerative changes. IMPRESSION: Stable mildly increased interstitial markings in the right lung base. Tip of nasogastric tube located within the proximal stomach.Initial report created on 12/17/2020 10:00:42 PM EDT:PROCEDURE INFORMATION: Exam: XR Chest Exam date and time: 12/17/2020 9:19 PM Age: 85 years old Clinical indication: Other: Ng tube TECHNIQUE: Imaging protocol: XR of the chest. Views: 1 view. COMPARISON: CR XR CHEST PORTABLE 12/17/2020 4:55 PM FINDINGS: Tubes, catheters and devices: Cardiac leads superimposed over the chest bilaterally. Lungs: Stable mildly increased interstitial markings in the right lung base. No alveolar infiltrate. Pleural spaces: No pleural fluid collection. No pneumothorax. Heart/Mediastinum: Normal heart size. Vasculature: Calcific thoracic aorta. Bones/joints: Old left rib fractures. Spinal degenerative changes. IMPRESSION: Stable mildly increased interstitial markings in the right lung base. Report electronically signed by: KATLIN BROWNING MD on 12/17/2020 22:02:33 Name Value Range Interpretation Code Description Data Cathy rce(s) Supporting Document(s) ID Date Data Source [id number] 12/17/2020 09:57:59 PM EDT [address] [id number] Name: Jacky Bao Alonzo: 1935Sex: MOrdering Provider: ANGEL Molina Prov: ANGEL Thomas Provider: Procedure Performed: CT ABDOMEN PELVIS W CONTRASTExam Date: 12/17/2020 20:29MRN: [id number] Number: [id number] Class: INFORMATION: Exam: CT Abdomen And Pelvis With Contrast Exam date and time: 12/17/2020 8:29 PM Age: 85 years old Clinical indication: Abdominal tenderness; acute abdominal pain, nonlocalized TECHNIQUE: Imaging protocol: Computed tomography of the abdomen and pelvis with contrast. Radiation optimization: All CT scans at this facility use at least one of these dose optimization techniques: automated exposure control; mA and/or kV adjustment per patient size (includes targeted exams where dose is matched to clinical indication); or iterative reconstruction. Contrast material: ISOVUE 370; Contrast volume: 70 ml; Contrast route: INTRAVENOUS (IV); COMPARISON: CT ABDOMEN PELVIS W CONTRAST 01/22/2017 7:17 PM FINDINGS: Lungs: No acute infiltrate in either lung base. Heart: Cardiomegaly. Liver: Normal. No mass. Gallbladder and bile ducts: Normal. No calcified stones. No ductal dilation. Pancreas: Normal. No ductal dilation. Spleen: Normal. No splenomegaly. Adrenal glands: Normal. No mass. Kidneys and ureters: No hydronephrosis or perinephric fluid. Bilateral renal cortical simple cysts measuring up to 3.1 cm transversely - no followup imaging is recommended. Stomach and bowel: On coronal images 22-50, fluid-filled small bowel loops in the mid to right abdomen measuring up to 2.8 cm in caliber - possible partial small bowel obstruction. Mild edema within the adjacent central mesentery. Scattered colon diverticuli without evidence of diverticulitis. No dilatation of the colon.Appendix: No evidence of appendicitis. Intraperitoneal space: Small amount of free fluid in the anterolateral right upper quadrant. No intraperitoneal free air. Soft t issue edema within the lower mid small bowel mesentery.Vasculature: Coronary artery calcification. Lymph nodes: Unremarkable. No enlarged lymph nodes. Urinary bladder: Unremarkable as visualized. Reproductive: 7.5 x 7.6 cm enlarged prostate gland with a few internal radiation implant seeds. Bones/joints: Spinal degenerative changes. Soft tissues: Unremarkable. IMPRESSION: 1. On coronal images 22-50, fluid-filled small bowel loops in the mid to right abdomen measuring up to 2.8 cm in caliber - possible partial small bowel obstruction. Mild edema within the adjacent central mesentery. 2. Small amount of free fluid in the anterolateral right upper quadrant. 3. 7.5 x 7.6 cm enlarged prostate gland. 4. Scattered colon diverticuli without evidence of diverticulitis. COMMENTS: Consistent with the [employer]'s Incidental Findings Committee white paper (J Am Hollie Radiol 2018): Any incidental renal lesion less than 1 cm or classified as too small to characterize, or any incidental cystic renal lesion characterized as simple-appearing, is likely benign. No follow-up imaging is recommended for these lesions per consensus recommendations based on imaging criteria. Report electronically signed by: KATLIN BROWNING MD on 12/17/2020 21:57:59 Name Value Range Interpretation Code Description Data Cathy rce(s) Supporting Document(s) ID Date Data Source [id number] 12/17/2020 10:10:43 PM EDT [facility] Name Value Range Interpretation Code Description Data Cathy rce(s) Supporting Document(s) COLOR [facility] APPEARANCE [facility] SPEC GRAV URINE 1.018 (1.003-1.030) [facility] PH URINE 5.0 (5.0-7.5) [facility] LEUK ESTERASE (NEG) [facility] NITRITE URINE (NEG) [facility] PROTEIN URINE (NEG) [facility] GLUCOSE URINE (NEG) [facility] KETONE URINE (NEG) [facility] UROBILINOGEN 0.2 mg/dL (0-1.0) [facility] BILIRUBIN URINE (NEG) [facility] BLOOD/HGB URINE (NEG) [facility] ID Date Data Source [id number] 12/17/2020 10:04:58 PM EDT [facility] Name Value Range Interpretation Code Description Data Cathy rce(s) Supporting Document(s) URN CULTURE HOLD [facility] ADD ON CULTURE ID Date Data Source [id number] 12/17/2020 07:59:55 PM EDT [facility] Name Value Range Interpretation Code Description Data Cathy rce(s) Supporting Document(s) SODIUM 139 mmol/L (136-145) [facility] POTASSIUM 3.8 mmol/L (3.6-5.2) [facility] CHLORIDE 98 mmol/L (100-108) L [facility] CO2 36 mmol/L (22-31) H [facility] ANION GAP 5 mmol/L (7-16) L [facility] UREA NITROGEN 26 mg/dL (7-24) H [facility] CREATININE 1.18 mg/dL (0.80-1.30) [facility] BUN/CREAT RATIO 22.0 RATIO (10.0-20.0) H [facility] GLUCOSE 142 mg/dL (70-99) H [facility] CALCIUM 9.8 mg/dL (8.4-10.2) [facility] TOTAL PROTEIN 8.4 g/dL (6.4-8.2) H [facility] ALBUMIN 4.1 g/dL (3.2-4.5) [facility] GLOBULIN 4.3 g/dL (2.7-4.3) [facility] ALB/GLOB RATIO 1.0 RATIO [facility] ALKALINE PHOSPHATASE 110 U/L (45-117) [facility] BILIRUBIN,TOTAL 0.8 mg/dL (0.0-1.0) [facility] PLEASE NOTE:Total bilirubin results may be falselyelevated in patients taking Eltrombopag. AST (SGOT) 33 U/L (11-39) [facility] ALT (SGPT) 22 U/L (12-78) [facility] GFR 59 ml/min/1.73m2 (>59) L [facility] GFR ( AMER) >60 ml/min/1.73m2 (>59) [facility] GFR INTERPRETATION [facility] --NORMAL KIDNEY FUNCTION OR MILD DISEASE - GFR >OR= 60CHRONIC KIDNEY DISEASE - GFR 15 - 59RENAL FAILURE - GFR <15 Est. GFR calculation based on the MDRDstudy equation, which assumes a steadystate for creatinine. Est. GFR should notbe used for medication dosing. ID Date Data Source [id number] 12/17/2020 07:59:55 PM EDT [facility] Name Value Range Interpretation Code Description Data Cathy rce(s) Supporting Document(s) TROPONIN I 0.05 ng/mL (<0.05) H [facility] Less than 0.05: Myocardial injury unlike lyGreater than or equal to 0.05: Highly suggestive of myocardial injuryCorrelation with rise and/or fall ofserial troponins, clinical symptomsand ECG changes is necessary. ID Date Data Source [id number] 12/17/2020 07:55:14 PM EDT [facility] Name Value Range Interpretation Code Description Data Cathy rce(s) Supporting Document(s) LIPASE 88 U/L (65-230) [facility] ID Date Data Source [id number] 12/17/2020 07:54:43 PM EDT [facility] Name Value Range Interpretation Code Description Data Cathy rce(s) Supporting Document(s) APTT 25.8 s (22.0-34.3) [facility] ID Date Data Source [id number] 12/17/2020 07:54:43 PM EDT [facility] Name Value Range Interpretation Code Description Data Cathy rce(s) Supporting Document(s) PT 11.0 s (9.2-11.9) [facility] INR 1.05 [facility] SUGGESTED THERAPEUTIC RANGES USING INR F ORSTABILIZED ANTICOAGULATED PATIENTS:STANDARD DOSE THERAPY INR 2.0-3.0 DVT, PE, PREVENT DVT OR EMBOLISMHIGH DOSE THERAPY INR 2.5-3.5 PREVENT EMBOLISM FROM MECHANICAL HEART VALVE ID Date Data Source [id number] 12/17/2020 07:41:30 PM EDT [facility] Name Value Range Interpretation Code Description Data Cathy rce(s) Supporting Document(s) WBC 8.4 10*3/uL (4.1-11.0) [facility] RBC 5.09 10*6/uL (4.60-6.10) [facility] HGB 16.2 g/dL (13.5-18.0) [facility] HCT 48.0 % (41.0-53.0) [facility] MCV 94.2 fL (80.0-95.0) [facility] MCH 31.9 pg (27.0-32.0) [facility] MCHC 33.8 g/dL (32.0-36.0) [facility] RDW 14.4 % (10.5-14.5) [facility] PLT 179 10*3/uL (150-450) [facility] MPV 9.5 fL (7.1-10.7) [facility] NEUT % 89.2 % (35.0-75.0) H [facility] LYMPH % 7.1 % (16.0-52.0) L [facility] MONO % 3.5 % (0.0-8.0) [facility] EOS % 0.0 % (0.0-5.0) [facility] BASO % 0.2 % (0.0-4.0) [facility] NEUT # 7.5 10*3/uL (1.8-7.7) [facility] LYMPH # 0.6 10*3/uL (1.2-4.8) L [facility] MONO # 0.3 10*3/uL (0.0-0.8) [facility] Eosinophils [#/volume] in Blood by Automated count 0.0 10*3/uL (0.0-0 .5) [facility] BASO # 0.0 10*3/uL (0.0-0.2) [facility] ID Date Data Source [id number] 12/17/2020 06:40:33 PM EDT [facility] Name Value Range Interpretation Code Description Data Cathy rce(s) Supporting Document(s) LACTIC ACID 2.6 mmol/L (0.4-2.0) H [facility] ID Date Data Source [id number] 12/17/2020 05:35:14 PM EDT [address] [address]jt[place] Name: JACKY BARRONB: 1935Sex: MOrdering Provider: ANGEL Molina Prov: ANGEL Thomas Provider: Procedure Performed: XR CHEST PORTABLEExam Date: 12/17/2020 17:16MRN: [id number] Number: [id number] Class: EmergencyAccount #: [id number] for Exam: abdominal painTechnique: AP portable view obtained.Comparison: January 22, 2017Findings: Mild right basilar density. No pleural effusion or pneumothorax. Cardiomegaly. Tortuous aorta with atherosclerotic change. No acute bone abnormality suspected. Mild gaseous distention of a bowel loop in the left upper quadrant, probably the splenic flexure.IMPRESSION: Cardiomegaly. Right basilar atelectasis versus pneumonia. Mild gaseous distention of a bowel loop in the left upper quadrant, probably the splenic flexure.Report electronically signed by: FOREIGN CHANDLER On 12/17/2020 5:35 PMWorkstation ID: [id number] Name Value Range Interpretation Code Description Data Cathy rce(s) Supporting Document(s) ID Date Data Source [id number] 10/29/2020 11:59:20 AM EDT [facility] Name Value Range Interpretation Code Description Data Cathy rce(s) Supporting Document(s) *Follow Up Visit [facility]ESSANDRO v[facility] YEVGPq8wYyCGJgKun9mhALgyCAJyn4TgEAy6CC3OA2QzYAgxmtXfYWQzurLeP5RfXRLaGPOZFEtbQVZp BMQ [file] lH1ZcQ1959pfg2eWk1pqH++9Coolqv0SxB9gXEyxQZnt6wvtMEvLaIAtK4N6R3g0bBw8YJSmYnNk+Sebastián [file] 5Pn22t6ekN/AEqNWur1r520mc/0+NURSES AIDE/uUSdi/3y0X+fYhPFn++sRHd26u9/gwk5Qhw0IjvGsfvchycap 3t773Ro1U/ZnHlm+WO/3qA8mBiSG/uFlaKw+Hm9OpY pV4vV+W5VwzlnuCW4Kn0yahXt7gj+P2HN/9w80/VZanvpvubwa/kam3iuCdi74V7um5Mzj+KV09Nd8+W f/u37e/aY694r/3a9u3h0oAhxo2b4BsFWBdADvYyAu0OI+Xl25r1l+NC4UlzNFR/ID19uAKlY8un/8Tv doB5lcvCvyHMXf/87lLuZt+F5w0L32bSz00N+NES8r kV184RXroKf1b+z2ow5xSq6i3jD3x13X/cT07oY7rb4xzV431nFvk12G47zTyrSW4/Xx59tgzHpNMjzP z4rVrDSy/S2rh8KmX7xv19szUvwm/ubiq7/jeb9qlE/wb49U5gV8nIzgRRke+86R4a06WOi3vwHnrAy2 tc7O+74t7sCzoeQ0e/u/l8+Xm/oF/ueOpqUKrj0xpk gc1K0xhqB8K0I/KeicpH99J57Muwj6e4Pnm/cese85qw5TqGjclL+zZxC70v1Je1+m+fUm+Wb/K4OJFd Zin0deU4kgowbYo4blmgRBluabbmN35rSra4bXa79UQfHuHz1o5jnlJ15+hX2wn/8rhJvlruP/ut8cnd 8q36FQe5zecobx4iA4G7Xpv1ckaJ8LU0N9ZF57J2/n gpwD+5+Bt2m6MJZ9sxdmoiWYk9+Hz9OeM4A2iwqC00cb2iI40sg900ds1xDp4nAj7hl6dZ80fy242fnO /6uxC/n2viWAmwZS53rXeX2aFhlaa4i414+4L710YNy89NMisjf2pr+zZitzCLLa+rGkg2IyzR2SqN+3 vN/qa/T3o4hP54hx5omXbjHThwMmGvfU+Jn0kMMOnN n0nyxJdurgz4j3r1r7X63UrqM9g98XWr1jhriqf6zd4V7ZN9J66ry96ABqwrin/Vzyx2P4cseVqR11N4 e68/AHjba47HbL3wk+rWs1bef+lKpUE17BtWpA59tEFpdD/k5N9J260nZ0M3v/Xru+K96GICVV/chm7/ cerpD2gDE751gPjz1gqO/Nu03KIZ1H1u/3BT9/L7+n eohR/tu/bXN/nB4x0AIUNvZanF3r44UHaMK11VJ+GyC/6al9Hv2H1UP0sivR6adCHLeq40w4Ll/vi9e/ nb0Qtbt8t/NKt+b6c22g70/uo785k9/qswvlvi//HpwN7z1alD3nkjVRIbRODVw2srqvwS1ZQ53UXy4l IhSS9+u3hPUP4jW4+zc4iwzDjRBIa/9ylXz7/+PFj9 0ZLR/eF3bF42xtS77i6H7/Ph4qM36HWv7rjqEvaIJGBA+K/uHtvuv+9rx+6eQN0/VSO9Zj6qdCQj5tQB lM/1509yqpCnLPez/E1X4cafnbfn5QnZhoh/rMKR4lYb0uBUpEe0cQwfH9TwuWhky7BGp535zHuZ7r1v l3t3k/qBdhjbsvf0dpjyre3MScLEs8/oX7dT/9sNlr iM47xI2z1v/qx+P/bjxRfg/rS+/ex3v/o/Ptmn9Z/+8//75r/N2VbXAvqk+/RGn4vkHKhdJT4/dhj/fL N/Gmq3bg+9CGLzKpLX/i4/vIAUlDit3g22mO+wd+sZPYkU53HGYozz5er42Gg5dpK3HRod/Oo+if+4vT v+w83/rtXTU9QkrZlIURl7VUwngdtEjYa78Ul7wau2 GuNSuPf3+C+fmMldBo/KXR961LQMo04z465e+otLTFoPYJjcs6HbemprujY7Y/Mh1PynYcSsN1aGR9cR b/Mcq36q9hngP7cT07EKeOec3AVatWirzSpbrLL187n0mCp09GOOfDB/xR0DoH05Gl/pi4aDalip1aAL s9xdoTTKsrwn+/WLGg858rUZ/gLLpEzercL3Pw+5Ob zsuGspfrn8+ty7RmPrzC1q36WVdAghEl+3tL+7ObwM+edMv14mRB8QrQFuv94OggeljDBdRk6s7+RLH3 Xf96dH/q3lSsm3wY9/+KIqg3DO1Kdopzu/57v+Segx8f439D+qXy6X4/Bcekfy7TLeVvaTc2V581ML5U sOj+9/f9mbq0ocQXjs7m33VS68YC/yVNB/aSzm6F2g f/0gRu0MOhMjS0+v2//0ul85586wn8g1I88cW/iVPowxXtXczBzzF6Vhs/ikD9m2j1baB9bhooB7xDac s3/+7kMNlYwU0zo1/Bh7E2lqUL/mNS75Gjtfze9sfiZYqWyBpChoyr9f0r6pj4ZkgADG911mgjhY180g srGQz2YsBph/2hbd4ANpJIl/+PDJ++StKUy7J8stu4 ujg7fL50y1bojxbAvslC1zKh/W+oxG8Guhe/awlWriqmF6j0lg9oXhtS3mZ+1b29MQj8gzv+Wagsi01h nKXuBMXq799LDIswOd+x89/MTORRunXFwRSzk+doH4a67fenTMK1b/H83C8MdVd1keV47jb5Z4Mu7+Xe Bxo5ufDj/Epj++e+OjpYh/krAl3z9KLYb80f/s7p9Q 576x6KX29p5/1sMW3n1uTYemt/byKMbCenx5swEtk7i/CX0PZU2+iGF2mETaINVXpO7m1epAgguOhI/m 0ysl3+/xZ9J07Lut9v/M8Em4Qk924in/vzm+mfPorhD0kGtyZ3w9gtzbEmy6gbJRvRZcj7jkxdMx+0l4 j+ZkkoarDw7fox+figLG4oNUuymkmqZVmCm3uRdwCj Vvmdco2qrCz798ss28nCws5kZSbOtCdd5oR2n/St/hfdN/sRSx/xl55r1XYld1TuklisO/Cx5a44q2w4 35bzm3Liderqr8zQyOzy8q7qWi83ygCU55jCtSvhcOVONJLvnxrovxvp7/+NMfn9hW9qp9xEU9k466sp /qvrhENbwdlAtV9XS9BiU/cmnYD3y5ttr/TrDbLoe/ vbRqpfCiQCdw8KEz+v316MvxBe7q5DYyQQ/PW6dYM0Ysd3F8IcIm/2P0CfeigKn3clo3t+l+V9ys3iNz +a7kTJOuIlq0iiTCyxsC7owprXJR5+5CcThtq7i7H5GXcylp0q9u4ohh+o9d5kDKt/UC5xyFj6bTK72G 5HySrRAU1TnEl1qQ+Jubd/Gt2SEPvOgu/njX+HDZGX d/7jogyooP0O93e13bd3j41ztbo+63rgZadTO2z+Uf2q5RjKL8QiFhPh3GOcxs8hK53zGB832QmuVGBf dnjdwRha8xZkTYl6wia++miDhxJ4xdN+rzsxy8hRiDpo6i8SN3sXqHwcDxd2h6iXnGi5j708jvm9jl1l OeYwM2UbMD0xh/jpXhOqYuLt0vEj4h/vDJ2+TChFZv m9irO1dgIy7B7dEafG/unr/6uUzzFWFX0bvrH5qqC1d++Wd7nzudC1z18HG6m8LvpqtDss2rPKdV/x87 UDawIQznpfJkeWZiPX0BBd8TDI1nr3UsDPcqEkWlYY9mwp0NHUoJOj9FHv38QPgeIePiDEIrDPOfQHJe MDAgODAwLjAwMDAwIDQyNzYuMDAwMDBdDQovRmlsdG [file] kJN0KYLxZJ/Melting Supervisor/P4+aV9KV01DZfPj/Ss3APKcvXV3NZ9nI3hl7RmUs+LvqXH+zAfl9vp18/pR1yZZkth [file] Q1VjbfNaSCFXEd8FbzWcPCZ9RFYxKm6XJu9GZo2Ka4HfgcP5kxTqSKzaOUCnZKTZYoOvDN2INYm= ID Date Data Source [id number] 10/28/2020 01:00:00 PM EDT [facility] CT CHEST, ABDOMEN AND PELVIS WITH CONTRA ST CLINICAL HISTORY: History of lymphoma s/p treatment, reevaluate disease, compare with Mar 2020 Covid vaccine left arm in August. COMPARISON: 03/23/2020 CT CAP CONTRAST:100 mL 300 administered intravenously. TECHNIQUE: Axial images were obtained of the chest, abdomen and pelvis. Coronal and sagittal multiplanar reformats were generated and reviewed. One or more of the following dose reduction techniques were utilized in effectively lowering the radiation dose for this examination: Automated Exposure Control, Adjustment of the mA and/or kV according to patient size, or Iterative reconstruction. CT CHEST FINDINGS: LINES AND DEVICES: None. LUNGS: There is a mild apical predominant centrilobular emphysema. Redemonstration of scattered tiny pulmonary nodules and calcified granuloma within the lungs-Unchanged punctate calcified granuloma within the left lung apex.Unchanged 0.2 cm subpleural pulmonary nodule within the right upper lobe (3:126/321).Unchanged 0.3 cm pulmonary nodule within the right lower lobe (3:201/321).Unchanged 0.3 cm pulmonary nodule within the right lower lobe (3:254/321).Unchanged 0.3 cm nodular focus within the right middle lobe medial segment. Possibly representing an area of mucous plugging (3:229/321).Unchanged 0.2 cm calcified granuloma along the major fissure in the left lower lobe (3:234/320Unchanged 0.1-0.2 cm subpleural pulmonary nodules within the left lower lobe (3:243/321). No new pulmonary nodules are identified. No pleural effusion. There is mild bibasilar gravity dependent atelectasis. LARGE AIRWAYS: Unremarkable. VESSELS: Scattered atherosclerotic plaques are identified within the visualized aorta. HEART: There is a moderate burden of coronary artery calcifications. Moderate cardiomegaly. MEDIASTINUM: No pathologically enlarged mediastinal, hilar, supraclavicular axillary lymph nodes. BONES: Moderate degenerative changes affect the visualized spine. Moderate to severe degenerative changes affect the bilateral glenohumeral joints. No suspicious osseous lesions are identified. SOFT TISSUES: Minimal bilateral gynecomastia. CT ABDOMEN AND PELVIS FINDINGS: LIVER/BILE DUCTS: There are multiple subcentimeter hypodensities scattered throughout the liver which are two small to characterize, statistically these findings are thought to represent hepatic cysts and hemangioma. Unchanged. GALLBLADDER: Unremarkable. SPLEEN: Unchanged lobulated diminutive appearance of the spleen. PANCREAS: Unremarkable. ADRENALS: Unremarkable. KIDNEYS/URETERS: There is a 2.3 cm indeterminate den sity structure which arises exophytically from the right kidney interpolar/lower pole region. Likely representing a hemorrhagic or proteinaceous cyst. Bilateral simple renal cysts are identified, measuring up to 3.2 cm on the right and 4.8 cm in length, without significant interval change. There are also a few subcentimeter hypodensities scattered throughout the kidneys which are too small to characterize, statistically these findings are thought to represent simple renal cysts. No nephrolithiasis or hydronephrosis. BOWEL: There are multiple scattered diverticula throughout the colon. There is no CT evidence of diverticulitis. The yuni is normal in course and caliber. LYMPH NODES: Redemonstration of a few enlarged/borderline enlarged lymph nodes. Without significant interval change. For example- Unchanged right retrocrural lymph node measuring 0.7 cm (2:).Unchanged right common iliac node measuring 0.8 cm (2:).Unchanged right external iliac node measuring 1.4 cm (2:68/88).Add itional nonenlarged retroperitoneal pelvic sidewall are again noted. RETROPERITONEUM/PERITONEUM: Unremarkable. VESSELS: A moderate burden of atherosclerotic plaques are identified within the aorta. The aorta is normal in course and caliber. PELVIC ORGANS: The prostate measures 7.2 x 7.5 x 6.3 cm. The median lobe prostate impresses upon the posterior inferior wall the urinary bladder. There is mild diffuse thickening of the urinary bladder wall, likely secondary to chronic bladder outlet obstruction. Two small diverticula are identified arising from the anterior dome of the urinary bladder, measuring 1.1 cm (6:33/) and 0.8 cm (6:34/76). BONES: Moderate to severe degenerative changes affect the visualized spine, associated with endplate sclerotic irregularities, osteophytosis and intervertebral disc space narrowing. There is minimal grade 1 anterolisthesis of L3 on L4, thought to be secondary to facet arthropathy and degenerative changes. No suspicious osseous lesions are identified. SOFT TISSUES: Unremarkable. IMPRESSION: CT CHEST: 1.Redemonstration of scattered calcified granuloma and nodules/micronodules. Unchanged when compared to 03/23/2020. No new or suspicious appearing pulmonary nodules are identified.2.No convincing evidence of recurrent or metastatic disease within the chest. CT ABDOMEN AND PELVIS: 1.Unchanged enlarged/borderline enlarged lymph nodes. 2.Unchanged severe prostatomegaly. Diffuse bladder wall thickening with diverticulation is suggestive of chronic bladder outlet obstruction.3.Unchanged 2.3 cm indeterminate density structure arising exophytically from the right kidney interpolar region. Not well characterized absent intravenous contrast, favored to represent a hemorrhagic or proteinaceous cyst. Attention at follow-up is recommended. Professional interpretation performed at [facility] [place] . Name Value Range Interpretation Code Description Data Cathy rce(s) Supporting Document(s) ID Date Data Source [id number] 10/28/2020 01:00:00 PM EDT [facility] CT CHEST, ABDOMEN AND PELVIS WITH CONTRA ST CLINICAL HISTORY: History of lymphoma s/p treatment, reevaluate disease, compare with Mar 2020 Covid vaccine left arm in August. COMPARISON: 03/23/2020 CT CAP CONTRAST:100 mL 300 administered intravenously. TECHNIQUE: Axial images were obtained of the chest, abdomen and pelvis. Coronal and sagittal multiplanar reformats were generated and reviewed. One or more of the following dose reduction techniques were utilized in effectively lowering the radiation dose for this examination: Automated Exposure Control, Adjustment of the mA and/or kV according to patient size, or Iterative reconstruction. CT CHEST FINDINGS: LINES AND DEVICES: None. LUNGS: There is a mild apical predominant centrilobular emphysema. Redemonstration of scattered tiny pulmonary nodules and calcified granuloma within the lungs-Unchanged punctate calcified granuloma within the left lung apex.Unchanged 0.2 cm subpleural pulmonary nodule within the right upper lobe (3:126/321).Unchanged 0.3 cm pulmonary nodule within the right lower lobe (3:201/321).Unchanged 0.3 cm pulmonary nodule within the right lower lobe (3:254/321).Unchanged 0.3 cm nodular focus within the right middle lobe medial segment. Possibly representing an area of mucous plugging (3:229/321).Unchanged 0.2 cm calcified granuloma along the major fissure in the left lower lobe (3:234/320Unchanged 0.1-0.2 cm subpleural pulmonary nodules within the left lower lobe (3:243/321). No new pulmonary nodules are identified. No pleural effusion. There is mild bibasilar gravity dependent atelectasis. LARGE AIRWAYS: Unremarkable. VESSELS: Scattered atherosclerotic plaques are identified within the visualized aorta. HEART: There is a moderate burden of coronary artery calcifications. Moderate cardiomegaly. MEDIASTINUM: No pathologically enlarged mediastinal, hilar, supraclavicular axillary lymph nodes. BONES: Moderate degenerative changes affect the visualized spine. Moderate to severe degenerative changes affect the bilateral glenohumeral joints. No suspicious osseous lesions are identified. SOFT TISSUES: Minimal bilateral gynecomastia. CT ABDOMEN AND PELVIS FINDINGS: LIVER/BILE DUCTS: There are multiple subcentimeter hypodensities scattered throughout the liver which are two small to characterize, statistically these findings are thought to represent hepatic cysts and hemangioma. Unchanged. GALLBLADDER: Unremarkable. SPLEEN: Unchanged lobulated diminutive appearance of the spleen. PANCREAS: Unremarkable. ADRENALS: Unremarkable. KIDNEYS/URETERS: There is a 2.3 cm indeterminate den sity structure which arises exophytically from the right kidney interpolar/lower pole region. Likely representing a hemorrhagic or proteinaceous cyst. Bilateral simple renal cysts are identified, measuring up to 3.2 cm on the right and 4.8 cm in length, without significant interval change. There are also a few subcentimeter hypodensities scattered throughout the kidneys which are too small to characterize, statistically these findings are thought to represent simple renal cysts. No nephrolithiasis or hydronephrosis. BOWEL: There are multiple scattered diverticula throughout the colon. There is no CT evidence of diverticulitis. The yuni is normal in course and caliber. LYMPH NODES: Redemonstration of a few enlarged/borderline enlarged lymph nodes. Without significant interval change. For example- Unchanged right retrocrural lymph node measuring 0.7 cm (2:).Unchanged right common iliac node measuring 0.8 cm (2:).Unchanged right external iliac node measuring 1.4 cm (2:68/).Add itional nonenlarged retroperitoneal pelvic sidewall are again noted. RETROPERITONEUM/PERITONEUM: Unremarkable. VESSELS: A moderate burden of atherosclerotic plaques are identified within the aorta. The aorta is normal in course and caliber. PELVIC ORGANS: The prostate measures 7.2 x 7.5 x 6.3 cm. The median lobe prostate impresses upon the posterior inferior wall the urinary bladder. There is mild diffuse thickening of the urinary bladder wall, likely secondary to chronic bladder outlet obstruction. Two small diverticula are identified arising from the anterior dome of the urinary bladder, measuring 1.1 cm (6:33/76) and 0.8 cm (6:34/76). BONES: Moderate to severe degenerative changes affect the visualized spine, associated with endplate sclerotic irregularities, osteophytosis and intervertebral disc space narrowing. There is minimal grade 1 anterolisthesis of L3 on L4, thought to be secondary to facet arthropathy and degenerative changes. No suspicious osseous lesions are identified. SOFT TISSUES: Unremarkable. IMPRESSION: CT CHEST: 1.Redemonstration of scattered calcified granuloma and nodules/micronodules. Unchanged when compared to 03/23/2020. No new or suspicious appearing pulmonary nodules are identified.2.No convincing evidence of recurrent or metastatic disease within the chest. CT ABDOMEN AND PELVIS: 1.Unchanged enlarged/borderline enlarged lymph nodes. 2.Unchanged severe prostatomegaly. Diffuse bladder wall thickening with diverticulation is suggestive of chronic bladder outlet obstruction.3.Unchanged 2.3 cm indeterminate density structure arising exophytically from the right kidney interpolar region. Not well characterized absent intravenous contrast, favored to represent a hemorrhagic or proteinaceous cyst. Attention at follow-up is recommended. Professional interpretation performed at [facility] . Name Value Range Interpretation Code Description Data Cathy rce(s) Supporting Document(s) ID Date Data Source [id number] 10/14/2020 11:11:24 AM EDT [facility] Name Value Range Interpretation Code Description Data Cathy rce(s) Supporting Document(s) &PDF [facility] IWOJXx0pYnTSQqVh17/ALXchTRGnq7OrZDrcUTo4EYkuVRQuN4BydIaiBJmJY8UWMFnAHPhEMV1DCOLK vci [file] AgICAgICAgICAgICAgICAgICAgICAgICAgICAgICAgICAgICAgICAgICAgICAgICAgICAgICAgICAgIC ANCiAgICAgICAgICAgICAgICAgICAgICAgICAgICAg ICAgICAgICAgICAgICAgICAgICAgICAgICAgICAgICAgICAgICAgICAgICAgICAgICAgICAgICAgICAg ICAgICAgICAgICANCiAgICAgICAgICAgICAgICAgICAgICAgICAgICAgICAgICAgICAgICAgICAgICAg ICAgICAgICAgICAgICAgICAgICAgICAgICAgICAgIC AgICAgICAgICAgICAgICAgICAgICANCiAgICAgICAgICAgICAgICAgICAgICAgICAgICAgICAgICAgIC AgICAgICAgICAgICAgICAgICAgICAgICAgICAgICAgICAgICAgICAgICAgICAgICAgICAgICAgICAgIC AgICANCiAgICAgICAgICAgICAgICAgICAgICAgICAg ICAgICAgICAgICAgICAgICAgICAgICAgICAgICAgICAgICAgICAgICAgICAgICAgICAgICAgICAgICAg ICAgICAgICAgICAgICANCiAgICAgICAgICAgICAgICAgICAgICAgICAgICAgICAgICAgICAgICAgICAg ICAgICAgICAgICAgICAgICAgICAgICAgICAgICAgIC AgICAgICAgICAgICAgICAgICAgICAgICANCiAgICAgICAgICAgICAgICAgICAgICAgICAgICAgICAgIC AgICAgICAgICAgICAgICAgICAgICAgICAgICAgICAgICAgICAgICAgICAgICAgICAgICAgICAgICAgIC AgICAgICANCiAgICAgICAgICAgICAgICAgICAgICAg ICAgICAgICAgICAgICAgICAgICAgICAgICAgICAgICAgICAgICAgICAgICAgICAgICAgICAgICAgICAg ICAgICAgICAgICAgICAgICANCiAgICAgICAgICAgICAgICAgICAgICAgICAgICAgICAgICAgICAgICAg ICAgICAgICAgICAgICAgICAgICAgICAgICAgICAgIC AgICAgICAgICAgICAgICAgICAgICAgICAgICANCiAgICAgICAgICAgICAgICAgICAgICAgICAgICAgIC AgICAgICAgICAgICAgICAgICAgICAgICAgICAgICAgICAgICAgICAgICAgICAgICAgICAgICAgICAgIC AgICAgICAgICANCjw/aZNeS6otrWEgiuE8I0ftIy4I Wj7VEK4oc3FkSXPoOJnniwXhEjnWUiCtLZVkXmfDShz9EIxtRL1UnXLdZ3KmF5MjLIumPX4ZXSLaRNDm eMXgWKQfGZJaDyC3PDUrAYgfHX2TeMZxZSnwLQFgWHOvUtTjUQMcMCPtVDMsBF6INYKsP739jiVsGg6R Kw4FNlEwHN3fob9DTynhAJJhUtuUXnn3KZgiTD6OzI QuO9SejNHoi9sYVaPcP4TBDXE7VHOdIp1MIAVyQoJyFLVhSPkdGJ6jLOUgNNWFnDqnmwU6LV7UXP9cer BbRU5DYfLyTl6zZq9IDhQvI4DdR2HtBFFqLXGRAOwaYO1XRQFjCBP9TYQdWbJbYVSOTmUsQ06zBK2PJ3 Wlx23mSwR7ZIBkPlCqPOzuJW61cSkdlwIhfXXypBlt YU1SCo7+JQnxmlNeZudSRtuwTUPGFrUpAhaCDhYiGHIzLJEaLAZcWzP9OfUhGw6FKNPlVTEzMKCjDlJd BDIvHTHwWXktTUNaVRD4DNR1JTEdSRIeUV7UHhUlUHTyClqgNXYcEHVgEYRpok5MVUFrWJYmJDE9PkFq GMYuPPImODaaSFNvABPeRDjaPVFqUPZjYP7VOsPtAM VjJTWcEPjfJRKiFORvup3IQMJkOPJlEEMwPRVhXQBhANLpSYibGSMlVQT0XaDnGNCbGVMlOW9VJpXaFY PhHKj5AUgvCOPyIFHzxu7JVVXbUAVkSjj9IQMxZLVeZMQbGHhyTIFlNVM3CKEgDPOlEDYkOH7AElXdGZ YrOYjxLSsrSWCyKQKjzj1JPTKvXJTxZKD1MEIuMSNr BUSvBAlmKTJjOONtGmWtFZLgAXGeFJ3TNjOxWNSjCBS4UQFcSUIhJUAdyw7BHKTlDQOtVWH2YZWyTGKg GIXtZZczNJFnEPO1JBc8ONQbHDZsJJ8VDpUqTGOnTHJ4JJXbVPVoGSJnvl4GLMFeOOAwIxGiXOVjAQCk UURlEIzbDITwIAI0WjJ3TJUnHPUoBA8FJaLfBNRnMH R1HBDwVJBhYCLvxo1TZOYoRBYdBpW5HTZyOHDxFOZmVUrhMXZpUMX7PNY8CAWrFJCdLT9WRlJnEENfAT l5TMZuLWAbKFOghx8PICObXXOdUkS1XhKiFJFnHCUjBBsqEMVtTIY4GDA1TYTgBQAgWI8DAeJhJFHiDh L6MkZlYHAgSYTrpb2IHXLhQVStHYLwUSVqQRVpXTDe ZKc6ueOpgRDzYBm7IA3VN0DlapEhWfwTEr4Zg761HVF9MBTmXp4FT5bqRv5qXGUwTSTPGy3HUZc1WtPr DEr6OGunIMIzUlBxJbXoAzE3D9I6JNSnJ0T4HUD+DVd7DmVgFJt3MFC7AkQnZFSiNDUnLvZ6JgczGYE3 KiJ6JQ2qCZAFFv3+GOfroHKexAlnWNSHBeW1RXw1OApeJWMQJb7A ID Date Data Source [id number] 04/13/2020 09:53:57 AM [facility]T [facility] EXAMINATION:CR CHEST X-RAY 2 VIEWSCLINIC AL HISTORY:Chronic systolic and diastolic heart failureCOMPARISON:None.TECHNIQUE:Two view chest.FINDINGS:Heart size is in the upper range of normal. There is prominence and tortuosity of the aortic archand descending thoracic aorta. Appears that the craniocaudal dimension of the arch is 4 cm whichis prominent. The lungs are clear. There is no evidence for pneumonia or CHF. No pleuraleffusion.IMPRESSION:Prominent tortuous thoracic aorta but no evidence for acute pulmonary disease. Name Value Range Interpretation Code Description Data Cathy rce(s) Supporting Document(s) ID Date Data Source [id number] 03/23/2020 10:26:00 AM EDT Hematology On [facility] CT ABDOMEN AND PELVIS WITH INTRAVENOUS C ONTRAST. INDICATION: Follicular lymphoma status post treatment. COMPARISON: CT abdomen and pelvis 09/16/2019 TECHNIQUE: CT of the abdomen and pelvis was performed after the administration of 100 mL of Omnipaque-300 intravenously. 70 second and 10 minute delayed images were obtained. Sagittal and coronal reformatted images were obtained. One or more of the following dose reduction techniques were utilized in effectively lowering the radiation dose for this examination: Automated Exposure Control, Adjustment of the mA and/or kV according to patient size, or Iterative reconstruction. FINDINGS: Mild bibasilar atelectasis or scarring is noted. Please see concurrent chest CT report for full dictation on chest findings. Hepatic steatosis is noted. Several too small to characterize hypodense lesions are seen in the liver, not significantly changed. The gallbladder, pancreas, and adrenal glands are unremarkable. The spleen is again noted to be slightly s mall in size and lobulated in contour, not significantly changed in appearance. Several low-attenuation and too small to characterize hypodense lesions are again noted throughout both kidneys. A lesion in the left renal midpole may contain a thin internal septation. Please note the renal lesions are incompletely characterized on this single phase-contrast exam. Colonic diverticulosis is seen with no evidence of acute diverticulitis. No bowel obstruction, bowel wall thickening or free fluid is seen. No free intraperitoneal air is identified. A nonenlarged right retrocrural lymph node is not significantly changed measuring 0.7 cm in short axis. A right common iliac lymph node is also not significantly changed measuring 0.9 cm in short axis. An additional right external iliac lymph node is also not significantly changed measuring up to 1.4 cm in short axis. Several nonenlarged, nonspecific retroperitoneal and additional pelvic lymph nodes are again noted. The prostate gland is diffusely enlarged and heterogeneous with significant mass effect upon the bladder base. The urinary bladder is incompletely distended. Although there is incomplete bladder distention, mild diffuse bladder wall thickening trabeculation and apparent small bladder diverticula are noted. Aortic vascular calcifications are noted. Multilevel degenerative change is seen in the lower thoracic and lumbar spine with endplate sclerotic irregularities, osteophytosis and intervertebral disc narrowing. Very mild grade 1 anterolisthesis is seen at L3-L4. IMPRESSION: No significant interval change compared to 09/16/2019. Several mildly enlarged and borderline enlarged lymph nodes in the abdomen and pelvis are not significantly changed. Marked prostatic enlargement with significant mass effect upon the bladder base. Professional interpretation performed at [facility] . Name Value Range Interpretation Code Description Data Cathy rce(s) Supporting Document(s) ID Date Data Source [id number] 03/23/2020 10:04:00 AM EDT Hematology [facility] CT CHEST WITH INTRAVENOUS CONTRAST. HIST ORY: History of follicular lymphoma, status post treatment COMPARISON: CT chest 09/16/2019 TECHNIQUE: A CT of the chest was performed, after the administration of intravenous contrast. Multiple axial images were obtained through the chest after the administration of intravenous contrast. Sagittal and coronal reformatted images were provided. The patient was administered 100 mL Omnipaque 300 intravenously. One or more of the following dose reduction techniques were utilized in effectively lowering the radiation dose for this examination: Automated Exposure Control, Adjustment of the mA and/or kV according to patient size, or Iterative reconstruction. FINDINGS: A punctate calcified granuloma is noted at the left lung apex, not significantly changed. Minimal fissural thickening or fissural nodule is again noted along the left major fissure, not significantly changed. A 2 mm left lower lobe fissural or pulmonary nodule is not significantly changed. Apparent 1 to 2 mm left lower lobe nodules are grossly stable. A groundglass nodule at the right lung base is seen measuring 3 mm, not significantly changed. An additional 2 mm nodule at the right lung base is also not significantly changed. An additional nodule in the right lower lobe is seen measuring 3 mm, not significantly changed. An additional 2 mm nodule in the anterior aspect of the right upper lobe is stable. An additional nodule in the right middle lobe is stable measuring 3 mm. No new or enlarging suspicious pulmonary nodules are seen. The trachea and central bronchi are grossly patent. Minimal atelectasis and/or scarring is noted in the lungs. No mediastinal, hilar, or axillary adenopathy is seen. Aortic and coronary artery vascular calcifications are noted. No pleural or pericardial effusion is identified. There is slightly prominent retroareolar soft tissue density bilaterally. This finding is more pronounced compared to 09/16/2019 and could be seen with gynecomastia. Multilev el degenerative change is noted in the thoracic spine. Several chronic appearing left-sided rib deformities are noted. An exophytic low-attenuation lesion is seen in the right renal upper pole. Please see concurrent CT abdomen and pelvis report for full dictation on findings in the abdomen and pelvis. IMPRESSION: Several scattered pulmonary nodules are stable compared to 09/16/2019. No evidence of recurrent or metastatic disease is seen in the chest. Slightly prominent retroareolar soft tissue density, more pronounced compared to 09/16/2019. This finding is nonspecific however may be seen with gynec omastia. Professional interpretation performed at [facility] . Name Value Range Interpretation Code Description Data Cathy rce(s) Supporting Document(s) Procedure Social History Code Duration Value Status Description Data Source(s ) Smoking 05/02/2021 07:13:14 AM EDT Ex-smoker (finding) complet ed Ex-smoker (finding) [place] ([facility]) Smoking 04/26/2021 12:00:00 AM EDT Ex-smoker (finding) complet ed Ex-smoker (finding) [place] ([facility]) Alcohol intake 03/17/2021 12:00:00 AM EDT Current drinker of al cohol (finding) completed Current drinker of alcohol (finding) [facility] Smoking 01/25/2021 12:00:00 AM EDT Former Cigarette Smoker com pleted Former Cigarette Smoker [facility] ([facility]) Alcohol intake 12/17/2020 12:00:00 AM EDT Current drinker of al cohol (finding) completed Current drinker of alcohol (finding) [facility] Smoking 12/03/2020 12:00:00 AM EDT Ex-smoker (finding) complet ed Ex-smoker (finding) [place] ([facility]) Smoking 12/03/2020 12:00:00 AM EDT Ex-smoker (finding) complet ed Ex-smoker (finding) [place] ([facility]) Alcohol intake 11/11/2020 12:00:00 AM EDT Current drinker of al cohol (finding) completed Current drinker of alcohol (finding) [facility] Alcohol intake 10/14/2020 12:00:00 AM EDT Yes completed [facility] Cigarette pack-years 10/14/2020 12:00:00 AM EDT UNK completed [facility] Cigarettes smoked current (pack per day) - Reported 10/15/19 12:00:00 AM EDT UNK completed [facility] Smoking 10/14/2020 12:00:00 AM EDT Former smoker completed Former smoker [facility] Smoking 05/20/2020 12:00:00 AM EST Ex-smoker (finding) complet ed Ex-smoker (finding) [place] ([facility]) Vital Signs ID Date Data Source UNK Name Value Range Interpretation Code Description Data Source(s) Body temperature 97.7 [degF] 97.7 [degF] [facility] ([facility]) Respiratory rate 20 /min 20 /min [place] ([facility]) PhenX - pain, abdominal - type and intensity protocol 0 0 [place] ([facility]) Oxygen saturation in Arterial blood by Pulse oximetry 97 % 97 % [place] ([facility]) Inhaled oxygen flow rate 0 L/min 0 L/min [place] ([facility]) Inhaled oxygen concentration 21 % 21 % [place] ([facility]) Systolic blood pressure 112 mm[Hg] 112 mm[Hg] [facility] Diastolic blood pressure 72 mm[Hg] 72 mm[Hg] [place] ([facility]) Heart rate 89 /min 89 /min [place] ([facility]) Heart rate rhythm 1 1 [place] Y ([facility]) Systolic blood pressure 120 mm[Hg] 120 mm[Hg] [facility] Diastolic blood pressure 80 mm[Hg] 80 mm[Hg] [facility] Heart rate 62 /min 62 /min [facility] Body temperature 36.33 [facility] 36.33 [facility] Respiratory rate 15 /min 15 /min Health system Body height 172.7 cm 172.7 cm [facility] Body weight 79.379 kg 79.379 kg [facility] Body mass index (BMI) [Ratio] 26.61 kg/m2 26.61 kg/m2 [facility] Oxygen saturation in Arterial blood by Pulse oximetry 99 % 99 % [facility] Body height 68 [in_i] 68 [in_i] [facility] ([facility] 5'8" Body weight 81.648 kg 81.648 kg [facility] ([facility] Body weight 180.00 [lb_av] 180.00 [lb_av] [facility] T ([facility]) Body mass index (BMI) [Ratio] 27.4 kg/m2 27.4 k g/m2 [facility] ([facility]) Systolic blood pressure 108 mm[Hg] 108 mm[Hg] M [facility] ([facility]) Diastolic blood pressure 72 mm[Hg] 72 mm[Hg] [facility] ([facility]) Heart rate 68 /min 68 /min [facility] ([facility] Systolic blood pressure 98 mm[Hg] 98 mm[Hg] G REENWAY ([facility]) Diastolic blood pressure 70 mm[Hg] 70 mm[Hg] [place] ([facility]) Heart rate 63 /min 63 /min [place] ([facility]) Heart rate rhythm 1 1 [place] Y ([facility]) Respiratory rate 20 /min 20 /min [place] ([facility]) Body temperature 97.6 [degF] 97.6 [degF] [place] A[place] ([facility]) Body weight 174.25 [lb_av] 174.25 [lb_av] [facility] [facility] ([facility]) PhenX - pain, abdominal - type and intensity protocol 0 0 [place] ([facility]) Oxygen saturation in Arterial blood by Pulse oximetry 97 % 97 % [place] ([facility]) Inhaled oxygen flow rate 0 L/min 0 L/min [place] ([facility]) Inhaled oxygen concentration 21 % 21 % [place] ([facility]) Oxygen saturation in Arterial blood by Pulse oximetry 98 % 98 % [facility] Systolic blood pressure 125 mm[Hg] 125 mm[Hg] [facility] Diastolic blood pressure 66 mm[Hg] 66 mm[Hg] [facility] Heart rate 66 /min 66 /min [facility] Body temperature 36.83 [place] 36.83 [facility] Respiratory rate 16 /min 16 /min Health system Body height 172.7 cm 172.7 cm [facility] Body weight 81.647 kg 81.647 kg [facility] Body mass index (BMI) [Ratio] 27.37 kg/m2 27.37 kg/m2 [facility] Systolic blood pressure 102 mm[Hg] 102 mm[Hg] [facility] Diastolic blood pressure 69 mm[Hg] 69 mm[Hg] [facility] Heart rate 63 /min 63 /min [facility] Body temperature 35.67 [place] 35.67 [facility] Respiratory rate 16 /min 16 /min Health system Body height 172.7 cm 172.7 cm [facility] Body weight 83.462 kg 83.462 kg [facility] Body mass index (BMI) [Ratio] 27.98 kg/m2 27.98 kg/m2 [facility] Oxygen saturation in Arterial blood by Pulse oximetry 96 % 96 % [facility] Systolic blood pressure 90 mm[Hg] 90 mm[Hg] [facility] Diastolic blood pressure 60 mm[Hg] 60 mm[Hg] [facility] Heart rate 80 /min 80 /min [facility] Body temperature 36.11 [place] 36.11 [facility] Respiratory rate 16 /min 16 /min Health system Body height 172.7 cm 172.7 cm [facility] Body weight 84.369 kg 84.369 kg [facility] Body mass index (BMI) [Ratio] 28.28 kg/m2 28.28 kg/m2 [facility] Oxygen saturation in Arterial blood by Pulse oximetry 98 % 98 % [facility] PhenX - pain, abdominal - type and intensity protocol 0 0 [place] ([facility]) unable to obtain vital signs Patient Treatment Plan of Care Planned Activity Planned Date Details Description Data Source (s) Spironolactone 25 MG Oral Tablet 03/10/2021 12:00:00 AM EDT [facility] Finasteride 5 MG Oral Tablet 01/26/2021 12:00:00 AM EDT [facility] 1 ML heparin sodium, porcine 1000 UNT/ML Injection 12/19/2020 12 :26:47 PM EDT [facility] fentaNYL Citrate (PF) (SUBLIMAZE) injection 50 mcg 12/17/2020 11 :20:09 PM EDT [facility] fentaNYL Citrate (PF) (SUBLIMAZE) injection 25 mcg 12/17/2020 11 :18:50 PM EDT [facility] 2 ML Metoclopramide 5 MG/ML Prefilled Syringe 12/17/2020 11:13:41 P M EDT [facility] Acetaminophen 650 MG Rectal Suppository 12/17/2020 11:13:25 PM EDT [facility] ondansetron (ZOFRAN) 4 MG/2ML injection 12/17/2020 08:30:15 PM EDT [facility] Furosemide 80 MG Oral Tablet 11/29/2020 12:00:00 AM EDT [facility] Furosemide 80 MG Oral Tablet 10/14/2020 12:00:00 AM EDT [facility] Furosemide 80 MG Oral Tablet 10/07/2020 12:00:00 AM EDT [facility] apixaban 5 MG Oral Tablet 07/12/2020 12:00:00 AM EST [facility] Spironolactone 25 MG Oral Tablet 03/03/2020 12:00:00 AM EDT [facility] atorvastatin 40 MG Oral Tablet 01/06/2020 12:00:00 AM EDT [facility] Dutasteride 0.5 MG Oral Capsule 08/11/2019 12:00:00 AM EST [facility] 14 ACTUAT fluticasone furoate 0.1 MG/ACT UAT / vilanterol 0.025 MG/ACTUAT Dry Powder Inhaler 02/27/2019 12:00:00 AM EDT [facility] 30 ACTUAT fluticasone furoate 0.2 MG/ACT UAT / vilanterol 0.025 MG/ACTUAT Dry Powder Inhaler [Breo] 12/20/2018 12:00:00 AM EDT [facility]
[2021-05-02 15:00] VITALS: BP 121/78
== END 2021-05-02 15:05 | disposition home or self-care (01) ==
LOC: M SDC 11:09
PROVIDERS: ATTEND Ophthalmology
DX: H25.11 Age-related nuclear cataract, right eye (principal); I10 Essential (primary) hypertension; I25.10 Atherosclerotic heart disease of native coronary artery without angina pectoris; E78.5 Hyperlipidemia, unspecified; R60.9 Edema, unspecified; Z92.21 Personal history of antineoplastic chemotherapy; Z85.71 Personal history of Hodgkin lymphoma; Z87.891 Personal history of nicotine dependence; Z79.01 Long term (current) use of anticoagulants; Z79.899 Other long term (current) drug therapy
CPT/HCPCS: 66984; J2250; J3010; V2632